=== PATIENT | male | born 1940 | race Caucasian/White ===

== ENCOUNTER → 2016-08-20 | Outpatient (CLI) | payer MEDICARE ==
[~2016-08-20] MED LIST: /AMLO25TA PO; /OXAZ10CA PO; /TAMS4CA PO; ADV100INH INH; ADVA115A INH; ADVA115INH INH; ADVA230A INH; ALB2.5NEB INH; ALBU17IN INH; ALBU20IN INH; ALBUTEROL INH; AMLO10TA2 PO; ASPI1TAB PO; ASPI81TA7 PO; CLEO150C PO; CLEO300C2 PO; CLIN300C PO; COLA100C PO; DEMA20TA6 PO; DOXY100C PO; ELIQ5TAB PO; EUCECRE3 TOP; FLOM5CAP PO; FOLI1TAB2 PO; FURO20TA2 PO; FURO40TA2 PO; HYDR-4274 PO; HYDR25T PO; LACT10SO29 PO; LASI40TA PO; LEVO500T PO; METO25TA74 PO; MILKSUS PO; MUCI600T34 PO; NICO14PA TOP; NICO21DI26 TOP; NICO7PA TOP; OMEP20CA3 PO; PRED10PA PO; PRED10PA2 PO; PRED10TA PO; PRED10TA2 PO; PRED1TAB32 PO; PRED20TA PO; PREPOIN PR; SIMV20TA2 PO; SPIR1CAP INH; TAMS0.4C2 PO; THIA100T PO; TRAZ50TA4 PO; TRIA1OI80 TOP; TYLE325T5 PO; Thiamine Hcl PO; VENTAER INH; VITMTA PO; XANA0.5T PO; ZEST20TA8 PO
[2016-08-20 12:05] LABS: BASO % 0.4 % (0.0-1.0); EOS # 0.2 K/mm3 (0.0-0.50); EOS % 2.6 % (0.0-3.0); LARGE UNSTAINED CELL # 0.1 K/mm3 (0.0-0.4); LYMPH # 0.7 K/mm3 (1.5-4.5); LYMPH % 8.4 % (24.0-44.0); MEAN CORPUSCULAR HEMOGLOBIN 30.2 pg (27.0-33.0); MEAN CORPUSCULAR HGB CONC 32.4 g/dl (32.0-36.5); MEAN CORPUSCULAR VOLUME 93.4 fl (80.0-96.0); MONO # 0.3 K/mm3 (0.0-0.8); MONO % 3.4 % (0.0-5.0); NEUTROPHILS # 6.3 K/mm3 (1.8-7.7); NEUTROPHILS % 84.3 % (36.0-66.0); PLATELET COUNT, AUTOMATED 187 k/mm3 (150-450); RED CELL DISTRIBUTION WIDTH 14.2 % (11.5-14.5); WHITE BLOOD COUNT 7.5 K/mm3 (4.0-10.0)
[2016-08-20 12:35] LABS: ALBUMIN 3.2 GM/DL (3.2-5.2); ALKALINE PHOSPHATASE 96 U/L (45-117); ALT/SGPT 19 U/L (12-78); ANION GAP 9 MEQ/L (8-16); AST/SGOT 19 U/L (15-37); BILIRUBIN,TOTAL 0.4 MG/DL (0.2-1.0); BLOOD UREA NITROGEN 17 MG/DL (7-18); CALCIUM LEVEL 8.4 MG/DL (8.8-10.2); CARBON DIOXIDE LEVEL 31 MEQ/L (21-32); CHLORIDE LEVEL 102 MEQ/L (98-107); CREATININE FOR GFR 1.22 MG/DL (0.70-1.30); FREE T4 0.97 NG/DL (0.76-1.46); GLOMERULAR FILTRATION RATE > 60.0 (>42); GLUCOSE, FASTING 130 MG/DL (83-110); PERCENT SATURATION 13.5 % (19.7-37.4); POTASSIUM SERUM 3.9 MEQ/L (3.5-5.1); SODIUM LEVEL 142 MEQ/L (136-145); TOTAL IRON BINDING CAPACITY 288 UG/DL (250-450); TOTAL PROTEIN 7.2 GM/DL (6.4-8.2)
--- NOTE | 2016-08-20 12:35 | REP ---
Left lower extremity Duplex Doppler venous ultrasound: Real time compression and duplex Doppler interrogation of the left lower extremity deep venous system is performed. The left common femoral, superficial femoral and popliteal veins are fully compressible with transducer pressure and demonstrate normal spontaneous and phasic flow, without evidence of deep venous thrombosis. Impression: No evidence of deep venous thrombosis of the left lower extremity femoral popliteal venous system. Signed by Tyler Baca MD 08/20/2016 12:27 P
--- NOTE | 2016-08-20 13:43 | REP ---
TWO VIEW CHEST: Two views of the chest are performed. Comparison 06/06/2016 and 06/04/2016. Large right pleural effusion has increased since prior studies. Interstitial opacities in the left lung base are unchanged. Cardiac silhouette appears enlarged. There is some calcification of the thoracic aorta. The mediastinal silhouette is unchanged although the infrahilar region on the right is obscured. There are degenerative changes of the spine. IMPRESSION: Large right pleural effusion has increased since prior studies. Signed by Tyler Baca MD 08/20/2016 04:59 P
== END ==
LOC: M LAB 11:14
PROVIDERS: ATTEND Physician Assistant
DX: J44.1 Chronic obstructive pulmonary disease with (acute) exacerbation (principal); R60.9 Edema, unspecified; I48.0 Paroxysmal atrial fibrillation

== ENCOUNTER → 2016-09-28 | Outpatient (CLI) | payer MEDICARE ==
[~2016-09-28] MED LIST changes: -COLA100C PO; +COLA100C3 PO
--- NOTE | 2016-09-28 10:39 | REP ---
CHEST, TWO VIEWS: Two views of the chest are performed and compared to a prior study of 08/20/2016. There is a moderate right effusion which has slightly diminished in size which adjacent right base atelectasis/infiltrate. Left lung is unchanged in appearance. Cardiomediastinal silhouette is grossly unchanged. There are degenerative changes of the spine. IMPRESSION: Mild decrease in moderate right effusion. Signed by Tyler Baca MD 09/28/2016 05:36 P
[2016-09-28 14:28] LABS: ANION GAP 6 MEQ/L (8-16); BLOOD UREA NITROGEN 12 MG/DL (7-18); CALCIUM LEVEL 9.3 MG/DL (8.8-10.2); CARBON DIOXIDE LEVEL 34 MEQ/L (21-32); CHLORIDE LEVEL 97 MEQ/L (98-107); CREATININE FOR GFR 1.18 MG/DL (0.70-1.30); FREE T4 1.08 NG/DL (0.76-1.46); GLOMERULAR FILTRATION RATE > 60.0 (>42); GLUCOSE, FASTING 113 MG/DL (83-110); SODIUM LEVEL 137 MEQ/L (136-145)
== END ==
LOC: M SMT 09:39
PROVIDERS: ATTEND Physician Assistant
DX: E03.9 Hypothyroidism, unspecified (principal); R60.9 Edema, unspecified

== ENCOUNTER 2016-10-11 15:19 | Inpatient (IN) | payer MEDICARE ==
[~2016-10-11] VITALS: Ht 188 cm; Wt 111.5 kg
[2016-10-11] MEDS ORDERED: ALBUTEROL SULFATE 2.5 MG/0.5 ML INH NEB SOLN INH ONE (15:45)
[2016-10-11] MEDS ORDERED: IPRATROPIUM 0.5MG/ALBUTEROL 2.5MG INH SOL UD 3ML (DUONEB)(J7620) NEB ONE (15:45)
[2016-10-11] MEDS ORDERED: methylPREDNISolone INJ 125 MG/2 ML VIAL (J2930) IV ONE (15:45)
[2016-10-11 16:00] LABS: ABG HCO3 28.4 MEQ/L (22.0-26.0); ABG PARTIAL PRESSURE CO2 41.9 mmHg (35.0-45.0); ABG PARTIAL PRESSURE O2 120.8 mmHg (75.0-100.0); ABG STANDARD HCO3 28.1 MEQ/L (22.0-26.0); ABG TOTAL CO2 29.7 MEQ/L (23.0-31.0); ABG pH (ARTERIAL) 7.449 UNITS (7.350-7.450)
[2016-10-11 16:01] LABS: BASO % 0.3 % (0.0-1.0); EOS # 0.1 K/mm3 (0.0-0.50); EOS % 1.1 % (0.0-3.0); LARGE UNSTAINED CELL # 0.1 K/mm3 (0.0-0.4); LARGE UNSTAINED CELL % 1.9 % (0.0-4.0); LYMPH # 0.9 K/mm3 (1.5-4.5); LYMPH % 16.3 % (24.0-44.0); MEAN CORPUSCULAR HGB CONC 32.7 g/dl (32.0-36.5); MEAN CORPUSCULAR VOLUME 91.6 fl (80.0-96.0); MONO # 0.2 K/mm3 (0.0-0.8); NEUTROPHILS # 3.9 K/mm3 (1.8-7.7); NEUTROPHILS % 77.4 % (36.0-66.0); PLATELET COUNT, AUTOMATED 155 k/mm3 (150-450); RED CELL DISTRIBUTION WIDTH 15.7 % (11.5-14.5); WHITE BLOOD COUNT 5.1 K/mm3 (4.0-10.0)
[2016-10-11 16:08] LABS: INR 1.3
[2016-10-11] MEDS ORDERED: IPRASOL4 INH (16:39)
[2016-10-11] MEDS ORDERED: COLA100C3 PO (16:46)
[2016-10-11] MEDS ORDERED: LEVO50TA45 PO (16:46)
[2016-10-11] MEDS ORDERED: SPIR12.9 INH (16:46)
[2016-10-11] MEDS ORDERED: LACT10SO29 PO (16:46)
[2016-10-11] MEDS ORDERED: ALPR0.5T3 PO (16:46)
[2016-10-11 16:54] LABS: ALBUMIN 3.4 GM/DL (3.2-5.2); ALBUMIN/GLOBULIN RATIO 0.94 (1.00-1.93); ALKALINE PHOSPHATASE 87 U/L (45-117); ALT/SGPT 23 U/L (12-78); ANION GAP 4 MEQ/L (8-16); AST/SGOT 23 U/L (15-37); BILIRUBIN,DIRECT 0.3 MG/DL (0.0-0.2); BILIRUBIN,TOTAL 0.6 MG/DL (0.2-1.0); BLOOD UREA NITROGEN 11 MG/DL (7-18); CALCIUM LEVEL 8.1 MG/DL (8.8-10.2); CARBON DIOXIDE LEVEL 34 MEQ/L (21-32); CHLORIDE LEVEL 97 MEQ/L (98-107); CREATININE FOR GFR 1.06 MG/DL (0.70-1.30); GLOMERULAR FILTRATION RATE > 60.0 (>42); GLUCOSE, FASTING 105 MG/DL (83-110); SODIUM LEVEL 135 MEQ/L (136-145)
[2016-10-11 16:59] LABS: THYROXINE (T4) 5.9 UG/DL (4.5-12.0)
--- NOTE | 2016-10-11 17:08 | REP ---
Portable chest x-ray: Single view: History: Dyspnea and cough. Comparison chest x-ray: 09/28/2016. Findings: EKG monitoring electrodes overlie the chest. There is blunting of the right lateral pleural angle consistent with moderate right pleural effusion perhaps slightly increased compared with the 09/28/2016 study. Cardiomegaly is again observed. Pulmonary vasculature is cephalized. No left pleural effusion or pulmonary edema is seen. Impression: Moderate right pleural effusion. Cardiomegaly and pulmonary vascular cephalization pattern consistent with CHF. Signed by Osmar Nunez MD 10/11/2016 07:54 P
[2016-10-11] MEDS ORDERED: ISOVUE-370 76% 100ML VIAL (Q9967) As Ordered ONE (17:12)
[2016-10-11] MEDS ORDERED: FUROSEMIDE 100 MG/10 ML VIAL (J1940) IV ONE (17:15)
[2016-10-11] MEDS ORDERED: AZITHROMYCIN INJ 500 MG, VIAL MATE ADAPTER 1 EACH in D5W 250 ML IV ONE (17:15)
[2016-10-11] MEDS ORDERED: cefTRIAXone SOD 1 GM in D5W MINI-BAG PLUS 50 ML IV ONE (17:15)
[2016-10-11] MEDS ORDERED: LORazepam 2 MG/ML VIAL (J2060) IV STA (18:01)
--- NOTE | 2016-10-11 18:31 | REP ---
CT pulmonary angiogram: With IV contrast: History: Shortness of breath, positive DVT. Comparison studies: 06/06/2016. Contrast dose: 75 mL of Isovue [address] technique: Helical scanning is acquired and overlapping 1.5 mm and contiguous 3 mm axial images are reformatted. In addition, a 3-D work station is deployed to generate thick slab maximum intensity projection images in sagittal and coronal imaging projections. CT pulmonary angiographic findings: There is good opacification of the pulmonary arterial tree. There is no CT evidence of pulmonary embolism. Coronary artery vascular calcification are noted. The thoracic aorta is otherwise unremarkable. No dissection or aneurysm is seen. There is a small to moderate right pleural effusion. No pericardial effusion is seen. No left pleural effusion is noted. Maximal intensity projection images show no vessel cutoff or filling defect to suspect an embolus. There is a 1.6 cm pleural-based nodule in the anterior aspect of the right upper lobe again noted unchanged comparison to prior studies. There is some atelectatic changes in the right base. On today's examination there is a small new opacity in the left lower lobe measuring 9 mm in diameter. This has nodular shape. It was not evident on the 06/06/2016 prior study. No hilar or mediastinal mass is seen. Stable mediastinal lymph nodes are seen. The right pleural effusion is larger than on the 06/06/2016 prior study. Impression: 1. No CT evidence of pulmonary embolus. 2. Moderate size right pleural effusion increased in size from 06/06/2016 prior exam. 3. Stable right upper lobe 16 mm nodule. 4. New nodule left lower lobe 9 mm in diameter. Signed by Osmar Nunez MD 10/11/2016 07:56 P
[2016-10-11] MEDS ORDERED: LORazepam 2 MG/ML VIAL (J2060) IV PRN (19:00)
[2016-10-11] MEDS ORDERED: OXAZEPAM 10 MG CAP PO PRN (19:00)
--- NOTE | 2016-10-11 19:11 | REP ---
Bilateral lower extremity duplex venous ultrasound: History: Swelling. Comparison study: 08/20/2016. Findings: The deep veins are anechoic and fully compressible from the groin to the popliteal fossa in the left lower extremity on two-dimensional scanning. Left lower extremity color Doppler and pulsed Doppler flow interrogation is unremarkable. There is no evidence of DVT in the left lower extremity. On the right however, there is echogenic material along the lateral wall of the distal femoral vein over a short segment of the distal femoral vein consistent with DVT, possibly chronic. The deep veins are otherwise anechoic and compressible and color Doppler interrogation is unremarkable on the right. Impression: Positive study on the right with a short segment of mural echogenic material along the lateral wall of the distal femoral vein consistent with DVT, possibly chronic. Otherwise negative right lower extremity duplex venous ultrasound. Negative left lower extremity duplex venous ultrasound. Signed by Osmar Nunez MD 10/11/2016 07:56 P
--- NOTE | 2016-10-11 19:22 | HPEPDOC ---
General Date of Admission October 11 2016 Chief Complaint The patient is a 75-year-old male admitted with a reason for visit of SOB. Source: Patient Exam Limitations: No limitations Timing/Duration: Day(s) (2) Severity: Moderate Associated Symptoms: Cough, Chills History of Present Illness Mr. Damico is a 75-year-old male with past medical history of COPD, congestive heart failure, hypertension, GERD, atrial fibrillation, BPH, renal cysts, dyslipidemia who presents to the emergency department today with a complaint that for the past 2 days he has developed an irritating cough productive of grayish white phlegm with associated shortness of breath. The patient states that he was in his usual state of health and that 2 days ago he started to develop this cough, he also states that for the past couple months he has noticed both of his legs becoming edematous. He denies associated headache, change in vision, nausea vomiting, fever but does admit to chills for the past 2 days, denies muscle aches. The patient states that there've been no changes in his bowel or urinary habits, he does self cath every night for urinary retention and gets about 2 quarts of urine out, he has been doing this for 2 months. He describes no change in his medications, admits to taking his medications regularly, denies any change in his diet recently or consuming increased amounts of sodium. He does admit to a pretty heavy alcohol history, he currently drinks around 15 beers per day. He does state that he sometimes gets cold at night and that the heat in his room does not work very well. Patient also states that for the past 2 years he has had generalized, red, itchy rash and that he has been to dermatology but states that no one can seem to figure out what it is. Home Medications Scheduled Amlodipine Besylate (Amlodipine Besylate) 10 Mg Tab 10 MG PO DAILY (Reported) Apixaban Base (Eliquis) 5 Mg Tab 5 MG PO BID (Reported) Aspirin (Aspirin 81) 81 Mg Tab 81 MG PO DAILY (Reported) Folic Acid (Folic Acid) 1 Mg Tab 1 MG PO DAILY (Reported) Guaifenesin (Mucinex) 600 Mg Tab 600 MG PO TID (Reported) Hydroxyzine HCl (Hydroxyzine HCl) 50 Mg Tab 50 MG PO QAM (Reported) Hydroxyzine HCl (Hydroxyzine HCl) 25 Mg Tab 25 MG PO BID (Reported) AFTERNOON & BEDTIME Levothyroxine Sodium (Levoxyl) 50 Mcg Tab 50 MCG PO DAILY (Reported) Metoprolol Succinate (Metoprolol Succinate ER) 25 Mg Tab 25 MG PO QHS (Reported ) Multivitamins *[facility] STOCK[facility]* (Thera M Plus *[facility] STOCK[facility]*) 1 Tab Tab 1 TAB PO DAILY (Reported) Omeprazole (Omeprazole) 20 Mg Cap 20 MG PO DAILY (Reported) Prednisone (Prednisone) 10 Mg Tab 10 MG PO DAILY (Reported) Salmeterol/Fluticasone (Advair Hfa 115-21 Mcg/Act) 1 Aer Aer 2 PUFF INH BID ( Reported) Simvastatin (Simvastatin) 20 Mg Tab 20 MG PO QHS (Reported) Tamsulosin Hydrochloride (Flomax) 0.4 Mg Cap 0.8 MG PO DAILY (Reported) Thiamine HCl (Thiamine HCl) 100 Mg Tab 100 MG PO DAILY (Reported) Tiotropium [place] Monohydrate (Spiriva Respimat) 2.5 Mcg/Act Spr 1 INHALATION INH DAILY (Reported) Trazodone HCl (Trazodone HCl) 50 Mg Tab 50 MG PO QHS (Reported) Scheduled PRN (Preparation H 0.25-3-14-71.9 %) 1 Oin Oin 1 DOSE AL PRN HEMORRHOIDS (Reported) Albuterol Sulfate (Ventolin Hfa) 200 Puff/8 Gm Aers 2 PUFF INH Q4H PRN PRN SHORTNESS OF BREATH (Reported) Albuterol/Ipratropium (Ipratropium [place]/Albut 0.5-2.5 (3) mg/3Ml) 1 Leonard Leonard 1 LEONARD INH Q4H PRN PRN SHORTNESS OF BREATH (Reported) Alprazolam (Alprazolam) 0.5 Mg Tab 0.5 MG PO QHS PRN PRN SLEEP (Reported) Docusate Sodium (Colace) 100 Mg Cap 100 MG PO BID PRN PRN CONSTIPATION (Reported ) Lactulose (Lactulose) 10 Gm/15 Ml Leonard 15 ML PO BID PRN PRN CONSTIPATION ( Reported) Allergies Coded Allergies: Lisinopril (Unverified Allergy, Severe, ANGIOEDEMA, 02/02/13) MAKENNA Inhibitors (Unverified Allergy, Unknown, 05/30/16) Ciprofloxacin (Unverified Allergy, Unknown, HIVES, SWELLING, 05/30/16) Fluconazole (Unverified Allergy, Unknown, 12/07/12) Per family Ibuprofen (Unverified Allergy, Unknown, Rash, 05/30/16) Per family Latex (Unverified Allergy, Unknown, 12/07/12) Per family Penicillins (Unverified Allergy, Unknown, rash, hives, 05/30/16) Per family Sulfa Drugs (Unverified Allergy, Unknown, rash, swelling, 05/30/16) Per family Past Medical History Medical History COPD CHF Hypertension GERD Atrial fibrillation Renal cysts hx BPH Dyslipidemia Surgical History Bladder suspension and ureteral procedure Family History Significant Family History: Cancer, Diabetes Father had coronary artery disease, grandmother had diabetes, mother had diabetes and sister had breast cancer Social History * Smoker: former Smoker (used to smoke 1.5 packs per day since he was a teenager, quit over year ago.) Alcohol: heavy (15 beers per day since he was a teenager) Drugs: denies Lives at home with his daughter Review of Symptoms Constitutional: Reports: Chills, Fatigue, Malaise, Denies: Fever, Night Sweats, Weakness, Weight Loss Eyes: Denies: Conjunctivae inflammation, Eyelid inflammation, Pain, Redness, Vision change ENT: Denies: Head Aches, Sinus Congestion Skin: Reports: Rash Pulmonary: Reports: Cough, Dyspnea Cardiovascular: Reports: Edema, Denies: Chest Pain, Palpitations Gastrointestinal: Denies: Nausea, Vomiting Genitourinary: Reports: Retention Neurological: Denies: Numbness, Weakness Psych: Reports: Mood Normal Physical Examination General Exam: Positive: Alert, Cooperative, Mild Distress Eye Exam: Positive: Conjunctiva & lids normal, EOMI, Negative: Ptosis, Sclera icteric ENT Exam: Positive: Atraumatic, Mucous membr. moist/pink, Nares Patent, Pharynx Normal, Tongue Midline Neck Exam: Positive: Supple, Negative: JVD Chest Exam: Positive: Diminished, Rhonchi Heart Exam: Positive: Normal S1, Rate Normal, Negative: Murmurs, Rubs Telemetry: Positive: Atrial fibrillation Abdomen Exam: Positive: Normal bowel sounds, Soft, Negative: BS Hyperactive, BS Hypoactive, Hepatospenomegaly, Tenderness Extremity Exam: Positive: Edema (b/l +1 LE), Swelling, Negative: Clubbing, Cyanosis Skin Exam: Positive: Nl turgor and temperature, Rash (generalized, purpuric , patchy, dry skin, erythematous ) Vital Signs Vital Signs Date Time Temp Pulse Resp B/P Pulse Ox O2 Delivery O2 Flow Rate FiO2 10/11/16 16:21 5 95 10/11/16 16:19 103 88 10/11/16 16:15 162/72 10/11/16 16:04 22 10/11/16 15:19 99.7 Nasal Cannula Laboratory Data Labs 24H Laboratory Tests 2 10/11/16 15:50: B-Type Natriuretic Peptide 245H, White Blood Count 5.1, Red Blood Count 4.04L, Hemoglobin 12.1L, Hematocrit 37.0L, Mean Corpuscular Volume 91.6, Mean Corpuscular Hemoglobin 30.0, Mean Corpuscular Hemoglobin Concent 32.7, Red Cell Distribution Width 15.7H, Platelet Count 155, Neutrophils (%) (Auto) 77.4H, Lymphocytes (%) (Auto) 16.3L, Monocytes (%) (Auto) 3.0, Eosinophils (%) (Auto) 1.1, Basophils (%) (Auto) 0.3, Neutrophils # (Auto) 3.9, Lymphocytes # (Auto) 0.9L, Monocytes # (Auto) 0.2, Eosinophils # (Auto) 0.1, Basophils # (Auto) 0.0, Lactic Acid Level 1.9, Large Unclassified Cells # 0.1, Large Unclassified Cells % 1.9, Prothromb Time International Ratio 1.30, Prothrombin Time 16.3H 10/11/16 15:54: Arterial Blood pH 7.449, Arterial Blood Partial Pressure CO2 41.9, Arterial Blood Partial Pressure O2 120.8H, Arterial Blood Total CO2 29.7, Arterial Blood HCO3 28.4H, Arterial Blood Base Excess 4.0H, Arterial Blood Oxygen Saturation 98.7, Blood Gas Bicarbonate Standard 28.1H 10/11/16 16:15: Aspartate Amino Transf (AST/SGOT) 23, Alanine Aminotransferase (ALT/SGPT) 23, Alkaline Phosphatase 87, Total Bilirubin 0.6, Direct Bilirubin 0.3H, Albumin 3.4 , Albumin/Globulin Ratio 0.94L, Anion Gap 4L, Calcium Level 8.1L, Creatine Kinase MB 2.4, Creatine Kinase MB Relative Index 3.75, Glomerular Filtration Rate > 60.0, Thyroid Stimulating Hormone (TSH) 1.010, Thyroxine (T4) 5.9, Total Creatine Kinase 64, Total Protein 7.0, Troponin I < 0.02 CBC/BMP Laboratory Tests 10/11/16 15:50 Red Blood Count 4.04 L, Mean Corpuscular Volume 91.6, Mean Corpuscular Hemoglobin 30.0, Mean Corpuscular Hemoglobin Concent 32.7, Red Cell Distribution Width 15.7 H, Neutrophils (%) (Auto) 77.4 H, Lymphocytes (%) (Auto ) 16.3 L, Monocytes (%) (Auto) 3.0, Eosinophils (%) (Auto) 1.1, Basophils (%) ( Auto) 0.3, Neutrophils # (Auto) 3.9, Lymphocytes # (Auto) 0.9 L, Monocytes # ( Auto) 0.2, Eosinophils # (Auto) 0.1, Basophils # (Auto) 0.0 10/11/16 16:15 Microbiology Microbiology 10/11/16 Blood Culture, Received Pending 10/11/16 Blood Culture, Received Pending 10/11/16 Influenza Virus Type A Antigen - Final, Complete 10/11/16 Influenza Virus Type B Antigen - Final, Complete Problems (1) CHF exacerbation Status: Acute Response to Treatment: Stable Problem Text: BNP of 245 +1 pitting edema bilaterally and physical exam No JVD appreciated 1700 mL fluid ejection Lasix therapy 40 every 12 Strict I&O's Daily weights Neck -2 L goal on diuretic therapy Admit to telemetry Low-sodium diet Trend cardiac enzymes Continue to monitor (2) Dyspnea Status: Acute Response to Treatment: Stable Problem Text: Likely secondary to CHF aspiration and pleural effusion likely secondary to CHF will actively diurese patient Oxygen therapy (3) Pleural effusion Status: Acute Response to Treatment: Stable Problem Text: Likely transudative secondary to heart failure Will diurese patient if he fails to improve will consider consultation thoracic surgery for tap This is likely chronic as it has been evident on prior chest x-rays Continue to monitor (4) Atrial fibrillation Status: Chronic Response to Treatment: Stable Problem Text: Patient is being admitted to telemetry floor Continue with Eliquis home medication Continue with metoprolol home medicine Patient is rate controlled and anticoagulated Continue to monitor (5) 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), with status asthmaticus Status: Chronic Response to Treatment: Stable Problem Text: Patient is usually on 3 L of home oxygen, however he required 5 L in the emergency department to help with the shortness of breath, he did complain of history of cough and sputum production on this admission DuoNeb therapy scheduled Oxygen therapy titrate 88-92% Solu-Medrol 60mg every 6 hours Continue to monitor (6) Hypertension Status: Chronic Response to Treatment: Stable Problem Text: Continue with metoprolol & Norvasc w/ holding parameters Hold for systolic less than 100 Continue to monitor (7) Alcohol abuse Status: Chronic Response to Treatment: Stable Problem Text: Patient has extensive, current drinking history of 15 beers a day serax scheduled Ativan Thiamine Folate B12 Multivitamin Continue to monitor (8) Anxiety Status: Chronic Response to Treatment: Stable Problem Text: Continue with alprazolam medical therapy (9) Skin rash Status: Chronic Response to Treatment: Stable Problem Text: Stable Continue to monitor (10) Hypothyroid Status: Chronic Response to Treatment: Stable Problem Text: C/W levothyroxine therapy (11) Urinary retention Status: Chronic Response to Treatment: Stable Problem Text: Nava cath since patient will be actively diuresed (12) DVT (deep venous thrombosis) Status: Acute Response to Treatment: Stable Problem Text: Continue with Eliquis medical therapy Right nonocclusive DVT Follow up with final vascular report continue to monitor (13) DVT prophylaxis Status: Acute Response to Treatment: Stable Problem Text: c/w eliquis scd teds Plan / VTE VTE Prophylaxis Ordered?: Yes GME ATTESTATION GME ATTESTATION My preceptor for this patient encounter was physically present in the building during the encounter and was fully available. As needed, all aspects of the patient interview, examination, medical decision making process, and medical care plan development were reviewed and approved by the preceptor. Preceptor is aware and concurs with the plan as stated in the body of this note and will attest to such by his/her cosignature. CAROLE CALDWELL DO Oct 11, 2016 19:21
[2016-10-11] MEDS ORDERED: PREPARATION H OINTMENT (HEMORRHOID) PR PRN (19:45)
[2016-10-11] MEDS ORDERED: LACTULOSE 20 GM/30 ML SYRUP UD PO PRN (19:45)
[2016-10-11 20:55] VITALS: BP 143/77
[2016-10-11] MEDS: ADVAIR HFA 115/21 INHALER INH SCH (21:00)
[2016-10-11] MEDS: OXAZEPAM 15 MG CAP PO SCH (21:10)
[2016-10-11] MEDS: traZODone 50 MG TAB PO SCH (21:35)
[2016-10-11] MEDS: methylPREDNISolone INJ 125 MG/2 ML VIAL (J2930) IV SCH (21:35)
[2016-10-11] MEDS: SIMVASTATIN 20 MG TAB PO SCH (21:35)
[2016-10-11] MEDS: METOPROLOL SUCC *XL* 25MG TAB (TopROL *XL*) PO SCH (21:35)
[2016-10-11] MEDS: ALPRAZolam 0.25 MG TAB PO SCH (21:35)
[2016-10-11] MEDS: APIXABAN 5 MG TAB (ELIQUIS) PO SCH (21:35)
[2016-10-11] MEDS: guaiFENesin ER 600 MG TAB PO SCH (21:35)
[2016-10-11] MEDS: hydrOXYzine 25 MG TAB PO SCH (21:35)
[2016-10-11] MEDS ORDERED: SLF 3 ML SYR IV PRN (22:15)
[2016-10-11] MEDS ORDERED: REFR0.5D8 OU ×2 (22:24→22:26)
[2016-10-11] MEDS ORDERED: POLYVINYL ALCOHOL OPHTH SOLN 15 ML(LIQUITEARS) OU PRN (23:15)
[2016-10-11 23:59] VITALS: BP 135/62
[2016-10-12] MEDS: NYSTATIN 100,000 UNITS/GM TOPICAL PWD 15 GM TOP SCH ×3 (02:45→21:22)
[2016-10-12 04:45] VITALS: BP 148/68
[2016-10-12] MEDS: methylPREDNISolone INJ 125 MG/2 ML VIAL (J2930) IV SCH ×4 (04:45→21:21)
[2016-10-12 05:41] LABS: BASO % 0.2 % (0.0-1.0); EOS % 0.2 % (0.0-3.0); LYMPH # 0.5 K/mm3 (1.5-4.5); LYMPH % 19.8 % (24.0-44.0); MEAN CORPUSCULAR HEMOGLOBIN 29.9 pg (27.0-33.0); MEAN CORPUSCULAR HGB CONC 32.4 g/dl (32.0-36.5); MONO # 0.1 K/mm3 (0.0-0.8); MONO % 2.7 % (0.0-5.0); NEUTROPHILS # 1.9 K/mm3 (1.8-7.7); NEUTROPHILS % 76.1 % (36.0-66.0); PLATELET COUNT, AUTOMATED 145 k/mm3 (150-450); RED CELL DISTRIBUTION WIDTH 15.7 % (11.5-14.5); WHITE BLOOD COUNT 2.4 K/mm3 (4.0-10.0)
[2016-10-12 05:53] LABS: ANION GAP 6 MEQ/L (8-16); BLOOD UREA NITROGEN 13 MG/DL (7-18); CALCIUM LEVEL 8.4 MG/DL (8.8-10.2); CARBON DIOXIDE LEVEL 35 MEQ/L (21-32); CHLORIDE LEVEL 99 MEQ/L (98-107); CREATININE FOR GFR 1.03 MG/DL (0.70-1.30); GLOMERULAR FILTRATION RATE > 60.0 (>42); GLUCOSE, FASTING 141 MG/DL (83-110); SODIUM LEVEL 140 MEQ/L (136-145)
[2016-10-12] MEDS: OXAZEPAM 15 MG CAP PO SCH ×5 (05:59→23:31)
[2016-10-12] MEDS: LEVOTHYROXINE 0.05 MG TAB (50 MCG) PO SCH (05:59)
[2016-10-12] MEDS: SLF 3 ML SYR IV SCH ×3 (05:59→21:21)
[2016-10-12] MEDS: FUROSEMIDE 40 MG/4 ML VIAL (J1940) IV SCH ×2 (06:03→18:07)
[2016-10-12 07:10] VITALS: BP 117/62
[2016-10-12] MEDS: guaiFENesin ER 600 MG TAB PO SCH ×3 (08:06→21:20)
[2016-10-12] MEDS: APIXABAN 5 MG TAB (ELIQUIS) PO SCH ×2 (08:07→21:20)
[2016-10-12] MEDS: THIAMINE 100 MG TAB PO SCH (08:07)
[2016-10-12] MEDS: MULTIVITAMINS/MINERALS THERAP 1 TAB PO SCH (08:07)
[2016-10-12] MEDS: OMEPRAZOLE 20 MG CAP PO SCH (08:07)
[2016-10-12] MEDS: TAMSULOSIN 0.4 MG CAP PO SCH (08:07)
[2016-10-12] MEDS: amLODIPine 10 MG TAB PO SCH (08:07)
[2016-10-12] MEDS: FOLIC ACID 1 MG TAB PO SCH (08:07)
[2016-10-12] MEDS: ASPIRIN 81 MG ENTERIC TAB PO SCH (08:07)
[2016-10-12] MEDS: hydrOXYzine 50 MG TAB PO SCH (11:03)
[2016-10-12] MEDS: ADVAIR HFA 115/21 INHALER INH SCH ×2 (11:20→20:09)
[2016-10-12 12:00] VITALS: BP 141/65
--- NOTE | 2016-10-12 13:19 | IPNPDOC ---
Text Note Date of Service The patient was seen on 10/12/16. NOTE Subjective: Pt states dyspnea has improved. No CP/palpitations. Objective: Vitals: (see below) General: No acute distress, laying comfortably in bed. HEENT: Moist mucous membranes. Neck: No JVD or lymphadenopathy Cardiac: RRR, No murmurs Pulm: Diminished breath sounds and coarse crackles b/l bases. No wheezing, rhonchi Abd: NT/ND + BS Ext: 1+ pitting edema BLE. No cyanosis. Labs (see below) Images: CTA Chest 10/11/16 Impression: 1. No CT evidence of pulmonary embolus. 2. Moderate size right pleural effusion increased in size from 06/06/2016 prior exam. 3. Stable right upper lobe 16 mm nodule. 4. New nodule left lower lobe 9 mm in diameter. BLE U/S 10/11/16 Impression: Positive study on the right with a short segment of mural echogenic material along the lateral wall of the distal femoral vein consistent with DVT, possibly chronic. Otherwise negative right lower extremity duplex venous ultrasound. Negative left lower extremity duplex venous ultrasound. Assessment/Plan 1. Acute diastolic heart failure- echocardiogram in May with a preserved EF. The patient is currently being diuresed with Lasix. Cardiac enzymes negative. Repeat echocardiogram pending 2. Acute COPD exacerbation - on 3L NC at home, requiring 5L on presentation. on steroids, nebs. Respiratory panel pending. 3. Likely chronic DVT - On eliquis, Metoprolol 4. H/o AF - on eliquis 5. Alcohol abuse- serax, B12, thiamine, ativan, folic acid, MVI 6. Hypothyroidism - on synthroid 7. Chronic urinary retention - start flomax. has amador at this time for diuresis. 8. Pleural effusion - will diurese pt. If persistent, will arrange for IR to drain. 9. Pulmonary nodule - will need close outpt f/u and repeat CT Chest. DVT prophy: Eliquis VS,Fishbone, I+O VS, Fishbone, I+O Laboratory Tests 10/11/16 15:50 Red Blood Count 4.04 L, Mean Corpuscular Volume 91.6, Mean Corpuscular Hemoglobin 30.0, Mean Corpuscular Hemoglobin Concent 32.7, Red Cell Distribution Width 15.7 H, Neutrophils (%) (Auto) 77.4 H, Lymphocytes (%) (Auto ) 16.3 L, Monocytes (%) (Auto) 3.0, Eosinophils (%) (Auto) 1.1, Basophils (%) ( Auto) 0.3, Neutrophils # (Auto) 3.9, Lymphocytes # (Auto) 0.9 L, Monocytes # ( Auto) 0.2, Eosinophils # (Auto) 0.1, Basophils # (Auto) 0.0 10/11/16 16:15 10/12/16 05:20 Red Blood Count 3.87 L, Mean Corpuscular Volume 92.0, Mean Corpuscular Hemoglobin 29.9, Mean Corpuscular Hemoglobin Concent 32.4, Red Cell Distribution Width 15.7 H, Neutrophils (%) (Auto) 76.1 H, Lymphocytes (%) (Auto ) 19.8 L, Monocytes (%) (Auto) 2.7, Eosinophils (%) (Auto) 0.2, Basophils (%) ( Auto) 0.2, Neutrophils # (Auto) 1.9, Lymphocytes # (Auto) 0.5 L, Monocytes # ( Auto) 0.1, Eosinophils # (Auto) 0.0, Basophils # (Auto) 0.0, Calcium Level 8.4 L Vital Signs Date Time Temp Pulse Resp B/P Pulse Ox O2 Delivery O2 Flow Rate FiO2 10/12/16 08:35 Nasal Cannula 3.0 10/12/16 08:07 74 117/62 10/12/16 07:10 97.9 22 92 10/11/16 16:21 95 I&O- Last 24 Hours up to 6 AM 10/12/16 06:00 Intake Total 0 ml Output Total 3250 ml Balance -3250 ml RAEANN LUTHER MD Oct 12, 2016 13:19
[2016-10-12 16:00] VITALS: BP 141/64
[2016-10-12] MEDS: hydrOXYzine 25 MG TAB PO SCH ×2 (16:46→21:20)
[2016-10-12] MEDS: IPRATROPIUM 0.5MG/ALBUTEROL 2.5MG INH SOL UD 3ML (DUONEB)(J7620) NEB PRN (18:54)
[2016-10-12 19:36] VITALS: BP 130/71
--- NOTE | 2016-10-12 20:15 | ECGEPIP ---
Stationary ECG Study [facility] - ED Test Date: 2016-10-11 Pat Name: JESSICA CRUZ Department: Room: - Gender: M Psychiatric Assistant: : [id number] Requested By: Karsten Swift Order Number: [id number] Reading MD: Muul Moya Measurements Intervals [place] Rate: 92 P: DE: 0 QRS: 8 QRSD: 76 T: 16 QT: 341 QTc: 422 Interpretive Statements ATRIAL FIBRILLATION ABNORMAL RHYTHM ECG NSTTW ABNORMALITY BASELINE AERTIFACT LIMITS INTERPRETATION Electronically Signed On 10-12-2016 20:15:05 EDT by Mulu Moya
[2016-10-12] MEDS: traZODone 50 MG TAB PO SCH (21:20)
[2016-10-12] MEDS: SIMVASTATIN 20 MG TAB PO SCH (21:20)
[2016-10-12] MEDS: ALPRAZolam 0.25 MG TAB PO SCH (21:20)
[2016-10-12] MEDS: METOPROLOL SUCC *XL* 25MG TAB (TopROL *XL*) PO SCH (21:21)
[2016-10-12 23:30] VITALS: BP 128/75
[2016-10-13 05:15] VITALS: BP 148/74
[2016-10-13] MEDS: OXAZEPAM 15 MG CAP PO SCH ×4 (05:20→23:44)
[2016-10-13] MEDS: methylPREDNISolone INJ 125 MG/2 ML VIAL (J2930) IV SCH ×4 (05:20→21:45)
[2016-10-13] MEDS: FUROSEMIDE 40 MG/4 ML VIAL (J1940) IV SCH ×2 (05:20→18:30)
[2016-10-13] MEDS: LEVOTHYROXINE 0.05 MG TAB (50 MCG) PO SCH (05:21)
[2016-10-13] MEDS: SLF 3 ML SYR IV SCH ×3 (05:21→21:46)
[2016-10-13 05:22] LABS: BASO % 0.1 % (0.0-1.0); EOS % 0.1 % (0.0-3.0); LARGE UNSTAINED CELL # 0.1 K/mm3 (0.0-0.4); LARGE UNSTAINED CELL % 0.8 % (0.0-4.0); LYMPH # 0.4 K/mm3 (1.5-4.5); LYMPH % 6.9 % (24.0-44.0); MEAN CORPUSCULAR HEMOGLOBIN 29.9 pg (27.0-33.0); MEAN CORPUSCULAR HGB CONC 31.9 g/dl (32.0-36.5); MEAN CORPUSCULAR VOLUME 93.8 fl (80.0-96.0); MONO # 0.1 K/mm3 (0.0-0.8); MONO % 2.3 % (0.0-5.0); NEUTROPHILS # 5.1 K/mm3 (1.8-7.7); NEUTROPHILS % 89.7 % (36.0-66.0); PLATELET COUNT, AUTOMATED 129 k/mm3 (150-450); RED CELL DISTRIBUTION WIDTH 15.8 % (11.5-14.5); WHITE BLOOD COUNT 5.7 K/mm3 (4.0-10.0)
[2016-10-13 05:36] LABS: ANION GAP 3 MEQ/L (8-16); BLOOD UREA NITROGEN 21 MG/DL (7-18); CALCIUM LEVEL 7.8 MG/DL (8.8-10.2); CARBON DIOXIDE LEVEL 36 MEQ/L (21-32); CHLORIDE LEVEL 103 MEQ/L (98-107); CREATININE FOR GFR 1.13 MG/DL (0.70-1.30); GLOMERULAR FILTRATION RATE > 60.0 (>42); GLUCOSE, FASTING 182 MG/DL (83-110); POTASSIUM SERUM 3.6 MEQ/L (3.5-5.1); SODIUM LEVEL 142 MEQ/L (136-145)
[2016-10-13] MEDS: ADVAIR HFA 115/21 INHALER INH SCH ×2 (07:41→20:14)
[2016-10-13 07:54] VITALS: BP 109/52
--- NOTE | 2016-10-13 09:04 | REP ---
Portable chest, single AP view, patient sitting: Comparison is 10/11/2016. The right pleural effusion is again noted. There appears to be an air-fluid level at the superior margin of the effusion on the study today. Remainder of the right lung is clear. The focal zone of atelectasis inferiorly in the left lung and left lungs otherwise clear. Cardiomegaly is again noted. The pulmonary vascular congestion identified previously has decreased. Signed by Tyler Leone MD 10/13/2016 08:55 A
[2016-10-13] MEDS: MULTIVITAMINS/MINERALS THERAP 1 TAB PO SCH (09:13)
[2016-10-13] MEDS: OMEPRAZOLE 20 MG CAP PO SCH (09:13)
[2016-10-13] MEDS: ASPIRIN 81 MG ENTERIC TAB PO SCH (09:13)
[2016-10-13] MEDS: guaiFENesin ER 600 MG TAB PO SCH ×2 (09:13→21:46)
[2016-10-13] MEDS: amLODIPine 10 MG TAB PO SCH (09:13)
[2016-10-13] MEDS: hydrOXYzine 50 MG TAB PO SCH (09:13)
[2016-10-13] MEDS: APIXABAN 5 MG TAB (ELIQUIS) PO SCH ×2 (09:13→21:46)
[2016-10-13] MEDS: TAMSULOSIN 0.4 MG CAP PO SCH (09:13)
[2016-10-13] MEDS: THIAMINE 100 MG TAB PO SCH (09:13)
[2016-10-13] MEDS: FOLIC ACID 1 MG TAB PO SCH (09:13)
[2016-10-13] MEDS: NYSTATIN 100,000 UNITS/GM TOPICAL PWD 15 GM TOP SCH ×2 (09:14→21:47)
--- NOTE | 2016-10-13 10:49 | IPNPDOC ---
Text Note Date of Service The patient was seen on 10/13/16. NOTE Subjective: Pt states dyspnea continues to improve. Productive cough. No CP/ palpitations. Objective: Vitals: (see below) General: No acute distress, laying comfortably in bed. HEENT: Moist mucous membranes. Neck: No JVD or lymphadenopathy Cardiac: RRR, No murmurs Pulm: Diminished breath sounds and coarse crackles b/l bases. No wheezing, rhonchi Abd: NT/ND + BS Ext: 1+ pitting edema BLE. No cyanosis. Labs (see below) Images: CTA Chest 10/11/16 Impression: 1. No CT evidence of pulmonary embolus. 2. Moderate size right pleural effusion increased in size from 06/06/2016 prior exam. 3. Stable right upper lobe 16 mm nodule. 4. New nodule left lower lobe 9 mm in diameter. BLE U/S 10/11/16 Impression: Positive study on the right with a short segment of mural echogenic material along the lateral wall of the distal femoral vein consistent with DVT, possibly chronic. Otherwise negative right lower extremity duplex venous ultrasound. Negative left lower extremity duplex venous ultrasound. Assessment/Plan 1. Acute diastolic heart failure- echocardiogram in May with a preserved EF. The patient is currently being diuresed with Lasix. Cardiac enzymes negative. Repeat echocardiogram pending 2. Acute COPD exacerbation - on 3L NC at home, requiring 5L on presentation. on steroids, nebs. Respiratory panel negative. Mucinex. Azithromycin 3. Likely chronic DVT - On eliquis, Metoprolol 4. H/o AF - on eliquis 5. Alcohol abuse- serax, B12, thiamine, ativan, folic acid, MVI 6. Hypothyroidism - on synthroid 7. Chronic urinary retention - start flomax. has amador at this time for diuresis. 8. Pleural effusion - will continue to diurese pt. If persistent, will arrange for IR to drain. 9. Pulmonary nodule - will need close outpt f/u and repeat CT Chest. DVT prophy: Eliquis VS,Fishbone, I+O VS, Fishbone, I+O Laboratory Tests 10/13/16 05:03 Calcium Level 7.8 L, Red Blood Count 3.70 L, Mean Corpuscular Volume 93.8, Mean Corpuscular Hemoglobin 29.9, Mean Corpuscular Hemoglobin Concent 31.9 L, Red Cell Distribution Width 15.8 H, Neutrophils (%) (Auto) 89.7 H, Lymphocytes (%) ( Auto) 6.9 L, Monocytes (%) (Auto) 2.3, Eosinophils (%) (Auto) 0.1, Basophils (% ) (Auto) 0.1, Neutrophils # (Auto) 5.1, Lymphocytes # (Auto) 0.4 L, Monocytes # (Auto) 0.1, Eosinophils # (Auto) 0.0, Basophils # (Auto) 0.0 Vital Signs Date Time Temp Pulse Resp B/P Pulse Ox O2 Delivery O2 Flow Rate FiO2 10/13/16 09:13 77 109/52 10/13/16 07:54 97.2 19 96 Nasal Cannula 3.0 10/11/16 16:21 95 I&O- Last 24 Hours up to 6 AM 10/13/16 05:59 Intake Total 780 ml Output Total 1750 ml Balance -970 ml RAEANN LUTHER MD Oct 13, 2016 10:48
[2016-10-13] MEDS ORDERED: AZITHROMYCIN INJ 500 MG, VIAL MATE ADAPTER 1 EACH in D5W 250 ML IV SCH (11:00)
[2016-10-13] MEDS: IPRATROPIUM 0.5MG/ALBUTEROL 2.5MG INH SOL UD 3ML (DUONEB)(J7620) NEB PRN ×2 (11:41→23:17)
[2016-10-13 12:00] VITALS: BP 123/61
[2016-10-13 16:00] VITALS: BP 129/60
[2016-10-13] MEDS: hydrOXYzine 25 MG TAB PO SCH ×2 (16:47→21:46)
[2016-10-13] MEDS: IPRATROPIUM 0.5MG/ALBUTEROL 2.5MG INH SOL UD 3ML (DUONEB)(J7620) NEB SCH (18:31)
[2016-10-13 19:53] VITALS: BP 137/65
[2016-10-13] MEDS: METOPROLOL SUCC *XL* 25MG TAB (TopROL *XL*) PO SCH (21:45)
[2016-10-13] MEDS: traZODone 50 MG TAB PO SCH (21:46)
[2016-10-13] MEDS: ALPRAZolam 0.25 MG TAB PO SCH (21:46)
[2016-10-13] MEDS: SIMVASTATIN 20 MG TAB PO SCH (21:46)
[2016-10-13 23:50] VITALS: BP 134/63
[2016-10-14] MEDS: FUROSEMIDE 40 MG/4 ML VIAL (J1940) IV SCH ×2 (04:40→17:28)
[2016-10-14] MEDS: methylPREDNISolone INJ 125 MG/2 ML VIAL (J2930) IV SCH ×4 (04:40→21:37)
[2016-10-14] MEDS: OXAZEPAM 15 MG CAP PO SCH ×3 (04:41→17:28)
[2016-10-14] MEDS: SLF 3 ML SYR IV SCH ×3 (04:41→21:38)
[2016-10-14] MEDS: LEVOTHYROXINE 0.05 MG TAB (50 MCG) PO SCH (04:41)
[2016-10-14 05:00] VITALS: BP 140/76
[2016-10-14] MEDS: IPRATROPIUM 0.5MG/ALBUTEROL 2.5MG INH SOL UD 3ML (DUONEB)(J7620) NEB SCH ×5 (06:28→23:21)
[2016-10-14 06:41] LABS: BASO % 0.1 % (0.0-1.0); EOS % 0.1 % (0.0-3.0); LARGE UNSTAINED CELL % 0.5 % (0.0-4.0); LYMPH # 0.4 K/mm3 (1.5-4.5); LYMPH % 5.3 % (24.0-44.0); MEAN CORPUSCULAR HEMOGLOBIN 30.4 pg (27.0-33.0); MEAN CORPUSCULAR HGB CONC 31.9 g/dl (32.0-36.5); MEAN CORPUSCULAR VOLUME 95.2 fl (80.0-96.0); MONO # 0.2 K/mm3 (0.0-0.8); MONO % 2.6 % (0.0-5.0); NEUTROPHILS # 5.9 K/mm3 (1.8-7.7); NEUTROPHILS % 91.4 % (36.0-66.0); PLATELET COUNT, AUTOMATED 136 k/mm3 (150-450); RED CELL DISTRIBUTION WIDTH 15.8 % (11.5-14.5); WHITE BLOOD COUNT 6.5 K/mm3 (4.0-10.0)
[2016-10-14 07:02] LABS: ANION GAP 5 MEQ/L (8-16); BLOOD UREA NITROGEN 24 MG/DL (7-18); CALCIUM LEVEL 7.7 MG/DL (8.8-10.2); CARBON DIOXIDE LEVEL 36 MEQ/L (21-32); CHLORIDE LEVEL 103 MEQ/L (98-107); CREATININE FOR GFR 1.06 MG/DL (0.70-1.30); GLOMERULAR FILTRATION RATE > 60.0 (>42); GLUCOSE, FASTING 152 MG/DL (83-110); POTASSIUM SERUM 3.4 MEQ/L (3.5-5.1); SODIUM LEVEL 144 MEQ/L (136-145)
[2016-10-14] MEDS: ADVAIR HFA 115/21 INHALER INH SCH ×2 (07:30→20:59)
[2016-10-14 08:30] VITALS: BP 134/62
[2016-10-14] MEDS ORDERED: ALBUTEROL SULFATE 2.5 MG/0.5 ML INH NEB SOLN INH PRN (08:45)
[2016-10-14] MEDS: THIAMINE 100 MG TAB PO SCH (08:57)
[2016-10-14] MEDS: OMEPRAZOLE 20 MG CAP PO SCH (08:57)
[2016-10-14] MEDS: amLODIPine 10 MG TAB PO SCH (08:58)
[2016-10-14] MEDS: ASPIRIN 81 MG ENTERIC TAB PO SCH (08:58)
[2016-10-14] MEDS: MULTIVITAMINS/MINERALS THERAP 1 TAB PO SCH (08:58)
[2016-10-14] MEDS: FOLIC ACID 1 MG TAB PO SCH (08:58)
[2016-10-14] MEDS: TAMSULOSIN 0.4 MG CAP PO SCH (08:58)
[2016-10-14] MEDS: hydrOXYzine 50 MG TAB PO SCH (08:58)
[2016-10-14] MEDS: MEROPENEM INJ 1 GM in D5W MINI-BAG PLUS 100 ML IV SCH ×2 (08:59→16:26)
[2016-10-14] MEDS: guaiFENesin ER 600 MG TAB PO SCH ×2 (08:59→21:37)
[2016-10-14] MEDS: APIXABAN 5 MG TAB (ELIQUIS) PO SCH (09:00)
[2016-10-14] MEDS: NYSTATIN 100,000 UNITS/GM TOPICAL PWD 15 GM TOP SCH ×2 (09:08→21:38)
[2016-10-14] MEDS: EUCERIN 120GM CREAM TOP PRN (11:35)
--- NOTE | 2016-10-14 13:08 | IPNPDOC ---
Text Note Date of Service The patient was seen on 10/14/16. NOTE Subjective: Pt states dyspnea is improving. Still has a productive cough, and requesting more nebulizers. No CP/palpitations. Objective: Vitals: (see below) General: No acute distress, laying comfortably in bed. HEENT: Moist mucous membranes. Neck: No JVD or lymphadenopathy Cardiac: RRR, No murmurs Pulm: Diminished breath sounds and coarse crackles b/l bases R>L. Minimal exp wheezing. No rhonchi Abd: NT/ND + BS Ext: Trace pitting edema BLE. No cyanosis. Labs (see below) Images: CTA Chest 10/11/16 Impression: 1. No CT evidence of pulmonary embolus. 2. Moderate size right pleural effusion increased in size from 06/06/2016 prior exam. 3. Stable right upper lobe 16 mm nodule. 4. New nodule left lower lobe 9 mm in diameter. BLE U/S 10/11/16 Impression: Positive study on the right with a short segment of mural echogenic material along the lateral wall of the distal femoral vein consistent with DVT, possibly chronic. Otherwise negative right lower extremity duplex venous ultrasound. Negative left lower extremity duplex venous ultrasound. Assessment/Plan 1. Acute diastolic heart failure- echocardiogram in May with a preserved EF. The patient is currently being diuresed with Lasix. Cardiac enzymes negative. Repeat echocardiogram pending 2. Acute COPD exacerbation - on 3L NC at home, requiring 5L on presentation. on steroids, nebs. Respiratory panel negative. Mucinex. Azithromycin 3. Likely chronic DVT - On eliquis 4. H/o AF - on eliquis, metoprolol 5. Alcohol abuse- serax, B12, thiamine, ativan, folic acid, MVI 6. Hypothyroidism - on synthroid 7. Chronic urinary retention - start flomax. has amador at this time for diuresis. 8. Pleural effusion - will continue to diurese pt. Thoracentesis for tomorrow. Eliquis on hold today. 9. Pulmonary nodule - will need close outpt f/u and repeat CT Chest. DVT prophy: Eliquis VS,Fishbone, I+O VS, Fishbone, I+O Laboratory Tests 10/14/16 04:57 Calcium Level 7.7 L, Red Blood Count 3.75 L, Mean Corpuscular Volume 95.2, Mean Corpuscular Hemoglobin 30.4, Mean Corpuscular Hemoglobin Concent 31.9 L, Red Cell Distribution Width 15.8 H, Neutrophils (%) (Auto) 91.4 H, Lymphocytes (%) ( Auto) 5.3 L, Monocytes (%) (Auto) 2.6, Eosinophils (%) (Auto) 0.1, Basophils (% ) (Auto) 0.1, Neutrophils # (Auto) 5.9, Lymphocytes # (Auto) 0.4 L, Monocytes # (Auto) 0.2, Eosinophils # (Auto) 0.0, Basophils # (Auto) 0.0 Vital Signs Date Time Temp Pulse Resp B/P Pulse Ox O2 Delivery O2 Flow Rate FiO2 10/14/16 08:58 90 136/80 10/14/16 08:30 98.3 18 94 Nasal Cannula 4.0 10/11/16 16:21 95 I&O- Last 24 Hours up to 6 AM 10/14/16 05:59 Intake Total 1440 ml Output Total 1550 ml Balance -110 ml RAEANN LUTHER MD Oct 14, 2016 13:08
[2016-10-14 16:00] VITALS: BP 150/68
[2016-10-14] MEDS: hydrOXYzine 25 MG TAB PO SCH ×2 (16:26→21:37)
[2016-10-14 17:15] VITALS: BP 146/65
[2016-10-14 20:46] VITALS: BP 154/68
[2016-10-14] MEDS: traZODone 50 MG TAB PO SCH (21:37)
[2016-10-14] MEDS: SIMVASTATIN 20 MG TAB PO SCH (21:37)
[2016-10-14] MEDS: ALPRAZolam 0.25 MG TAB PO SCH (21:37)
[2016-10-14] MEDS: METOPROLOL SUCC *XL* 25MG TAB (TopROL *XL*) PO SCH (21:38)
[2016-10-15] VITALS (17 sets, daily range): BP systolic 132–160; BP diastolic 58–74
[2016-10-15] MEDS: MEROPENEM INJ 1 GM in D5W MINI-BAG PLUS 100 ML IV SCH ×4 (00:18→23:23)
[2016-10-15] MEDS: OXAZEPAM 15 MG CAP PO SCH ×5 (00:18→23:23)
[2016-10-15] MEDS: IPRATROPIUM 0.5MG/ALBUTEROL 2.5MG INH SOL UD 3ML (DUONEB)(J7620) NEB SCH ×7 (04:00→23:30)
[2016-10-15] MEDS: methylPREDNISolone INJ 125 MG/2 ML VIAL (J2930) IV SCH (05:02)
[2016-10-15] MEDS: FUROSEMIDE 40 MG/4 ML VIAL (J1940) IV SCH (05:02)
[2016-10-15] MEDS: LEVOTHYROXINE 0.05 MG TAB (50 MCG) PO SCH (05:02)
[2016-10-15] MEDS: SLF 3 ML SYR IV SCH ×3 (05:06→20:27)
[2016-10-15 06:19] LABS: BASO % 0.2 % (0.0-1.0); EOS % 0.2 % (0.0-3.0); LARGE UNSTAINED CELL % 0.8 % (0.0-4.0); LYMPH # 0.4 K/mm3 (1.5-4.5); LYMPH % 6.4 % (24.0-44.0); MEAN CORPUSCULAR HEMOGLOBIN 30.2 pg (27.0-33.0); MEAN CORPUSCULAR HGB CONC 31.7 g/dl (32.0-36.5); MEAN CORPUSCULAR VOLUME 95.3 fl (80.0-96.0); MONO # 0.1 K/mm3 (0.0-0.8); NEUTROPHILS # 4.6 K/mm3 (1.8-7.7); NEUTROPHILS % 90.4 % (36.0-66.0); PLATELET COUNT, AUTOMATED 131 k/mm3 (150-450); RED CELL DISTRIBUTION WIDTH 15.9 % (11.5-14.5); WHITE BLOOD COUNT 5.1 K/mm3 (4.0-10.0)
[2016-10-15 06:31] LABS: ANION GAP 6 MEQ/L (8-16); BLOOD UREA NITROGEN 25 MG/DL (7-18); CALCIUM LEVEL 7.4 MG/DL (8.8-10.2); CARBON DIOXIDE LEVEL 37 MEQ/L (21-32); CHLORIDE LEVEL 99 MEQ/L (98-107); CREATININE FOR GFR 0.96 MG/DL (0.70-1.30); GLOMERULAR FILTRATION RATE > 60.0 (>42); GLUCOSE, FASTING 160 MG/DL (83-110); POTASSIUM SERUM 3.1 MEQ/L (3.5-5.1); SODIUM LEVEL 142 MEQ/L (136-145)
[2016-10-15] MEDS: ADVAIR HFA 115/21 INHALER INH SCH ×2 (07:57→22:06)
[2016-10-15] MEDS: guaiFENesin ER 600 MG TAB PO SCH ×2 (08:12→20:26)
[2016-10-15] MEDS: FOLIC ACID 1 MG TAB PO SCH (08:12)
[2016-10-15] MEDS: amLODIPine 10 MG TAB PO SCH (08:12)
[2016-10-15] MEDS: predniSONE 20 MG TAB PO SCH (08:12)
[2016-10-15] MEDS: hydrOXYzine 50 MG TAB PO SCH (08:12)
[2016-10-15] MEDS: MULTIVITAMINS/MINERALS THERAP 1 TAB PO SCH (08:13)
[2016-10-15] MEDS: TAMSULOSIN 0.4 MG CAP PO SCH (08:13)
[2016-10-15] MEDS: NYSTATIN 100,000 UNITS/GM TOPICAL PWD 15 GM TOP SCH ×2 (08:13→20:27)
[2016-10-15] MEDS: OMEPRAZOLE 20 MG CAP PO SCH (08:13)
[2016-10-15] MEDS: THIAMINE 100 MG TAB PO SCH (08:13)
[2016-10-15] MEDS: EUCERIN 120GM CREAM TOP PRN (10:16)
--- NOTE | 2016-10-15 11:11 | IPNPDOC ---
Text Note Date of Service The patient was seen on 10/15/16. NOTE Subjective: Pt states dyspnea is improving. Still has a productive cough, and requesting more nebulizers. No CP/palpitations. Objective: Vitals: (see below) General: No acute distress, laying comfortably in bed. HEENT: Moist mucous membranes. Neck: No JVD or lymphadenopathy Cardiac: RRR, No murmurs Pulm: Diminished breath sounds and coarse crackles b/l bases R>L. Minimal exp wheezing. No rhonchi Abd: NT/ND + BS Ext: Trace edema BLE. No cyanosis. Labs (see below) Images: CTA Chest 10/11/16 Impression: 1. No CT evidence of pulmonary embolus. 2. Moderate size right pleural effusion increased in size from 06/06/2016 prior exam. 3. Stable right upper lobe 16 mm nodule. 4. New nodule left lower lobe 9 mm in diameter. BLE U/S 10/11/16 Impression: Positive study on the right with a short segment of mural echogenic material along the lateral wall of the distal femoral vein consistent with DVT, possibly chronic. Otherwise negative right lower extremity duplex venous ultrasound. Negative left lower extremity duplex venous ultrasound. Assessment/Plan 1. Acute diastolic heart failure- echocardiogram in May with a preserved EF. Lasix changed to PO. Cardiac enzymes negative. Repeat echocardiogram pending 2. Acute COPD exacerbation - on 3L NC at home, requiring 5L on presentation. on steroids, nebs. Respiratory panel negative. Mucinex. Azithromycin 3. Likely chronic DVT - On eliquis 4. H/o AF - on eliquis, metoprolol 5. Alcohol abuse- serax, B12, thiamine, ativan, folic acid, MVI 6. Hypothyroidism - on synthroid 7. Chronic urinary retention - start flomax. has amador at this time for diuresis. 8. Pleural effusion - persistent;afebrile. Thoracentesis for tomorrow. Eliquis on hold today; restart tomorrow. 9. Pulmonary nodule - will need close outpt f/u and repeat CT Chest. DVT prophy: Eliquis VS,Fishbone, I+O VS, Fishbone, I+O Laboratory Tests 10/15/16 05:43 Calcium Level 7.4 L, Red Blood Count 3.73 L, Mean Corpuscular Volume 95.3, Mean Corpuscular Hemoglobin 30.2, Mean Corpuscular Hemoglobin Concent 31.7 L, Red Cell Distribution Width 15.9 H, Neutrophils (%) (Auto) 90.4 H, Lymphocytes (%) ( Auto) 6.4 L, Monocytes (%) (Auto) 2.0, Eosinophils (%) (Auto) 0.2, Basophils (% ) (Auto) 0.2, Neutrophils # (Auto) 4.6, Lymphocytes # (Auto) 0.4 L, Monocytes # (Auto) 0.1, Eosinophils # (Auto) 0.0, Basophils # (Auto) 0.0 Vital Signs Date Time Temp Pulse Resp B/P Pulse Ox O2 Delivery O2 Flow Rate FiO2 10/15/16 08:12 81 145/69 10/15/16 08:10 98.0 18 92 Nasal Cannula 3.0 10/11/16 16:21 95 I&O- Last 24 Hours up to 6 AM 10/15/16 06:00 Intake Total 1180 ml Output Total 2050 ml Balance -870 ml RAEANN LUTHER MD Oct 15, 2016 11:11
--- NOTE | 2016-10-15 13:28 | REP ---
CHEST, TWO VIEWS: Two views of the chest are performed and compared to prior chest radiograph 10/13/[address] 10/11/2016. There is decreased right pleural fluid. There is no pneumothorax. There does appear to be mild residual pleural fluid on the right. There is mild bibasilar atelectasis/infiltrate. There is mild cardiomegaly. IMPRESSION: Decreased amount of right pleural fluid status post right thoracentesis. No pneumothorax. Signed by Tyler Baca MD 10/15/2016 08:09 P
[2016-10-15 14:12] LABS: LDH, BODY FLUID 124 U/L (NOT ESTABLISHED); TOTAL PROTEIN, BODY FLUID 2.9 G/DL (NOT ESTABLISHED)
[2016-10-15 15:35] LABS: RBC PLEURAL FLUID 69 (<10mm3 cells/uL); TNC PLEURAL FLUID 201 cells/uL (0-20)
[2016-10-15 15:36] LABS: BF DIFF IF INDICATED? YES (NO)
[2016-10-15] MEDS: hydrOXYzine 25 MG TAB PO SCH ×2 (15:46→20:26)
[2016-10-15] MEDS: ASPIRIN 81 MG ENTERIC TAB PO SCH (15:46)
[2016-10-15 15:49] LABS: CC BF DIFF EXAM CYTOCENTRIFUGE
--- NOTE | 2016-10-15 17:36 | REP ---
ULTRASOUND GUIDED RIGHT THORACENTESIS: The procedure was performed under the direct supervision of Dr. Baca. The risks and benefits of the procedure were explained to the patient and informed consent was obtained. The right pleural effusion was localized using ultrasound guidance. The skin was prepped and draped in a sterile fashion. 1% lidocaine was used as a local anesthetic. An #8-[place] [id number] catheter was inserted using trocar technique. 1,550 mL of low viscosity red-colored fluid was withdrawn with a sample sent to the lab for analysis. The patient tolerated the procedure well and there were no immediate complications. Reviewed by MISHA Ohara 10/16/2016 05:13 PEdited and Signed by Tyler Baca MD 10/16/2016 05:20 P
[2016-10-15] MEDS: ALPRAZolam 0.25 MG TAB PO SCH (20:26)
[2016-10-15] MEDS: traZODone 50 MG TAB PO SCH (20:26)
[2016-10-15] MEDS: METOPROLOL SUCC *XL* 25MG TAB (TopROL *XL*) PO SCH (20:27)
[2016-10-15] MEDS: SIMVASTATIN 20 MG TAB PO SCH (20:27)
[2016-10-16 06:00] VITALS: BP 128/65
[2016-10-16] MEDS: SLF 3 ML SYR IV SCH ×3 (06:00→21:27)
[2016-10-16] MEDS: LEVOTHYROXINE 0.05 MG TAB (50 MCG) PO SCH (06:00)
[2016-10-16] MEDS: OXAZEPAM 15 MG CAP PO SCH ×3 (06:00→18:05)
[2016-10-16 07:14] LABS: BASO % 0.6 % (0.0-1.0); EOS % 0.1 % (0.0-3.0); LARGE UNSTAINED CELL # 0.1 K/mm3 (0.0-0.4); LARGE UNSTAINED CELL % 1.7 % (0.0-4.0); LYMPH # 0.7 K/mm3 (1.5-4.5); LYMPH % 9.8 % (24.0-44.0); MEAN CORPUSCULAR HGB CONC 33.6 g/dl (32.0-36.5); MEAN CORPUSCULAR VOLUME 95.4 fl (80.0-96.0); MONO # 0.3 K/mm3 (0.0-0.8); MONO % 4.5 % (0.0-5.0); NEUTROPHILS # 5.8 K/mm3 (1.8-7.7); NEUTROPHILS % 83.4 % (36.0-66.0); PLATELET COUNT, AUTOMATED 127 k/mm3 (150-450); RED CELL DISTRIBUTION WIDTH 15.7 % (11.5-14.5)
[2016-10-16 07:15] LABS: ANION GAP 5 MEQ/L (8-16); BLOOD UREA NITROGEN 27 MG/DL (7-18); CALCIUM LEVEL 7.5 MG/DL (8.8-10.2); CARBON DIOXIDE LEVEL 39 MEQ/L (21-32); CHLORIDE LEVEL 99 MEQ/L (98-107); GLOMERULAR FILTRATION RATE > 60.0 (>42); GLUCOSE, FASTING 84 MG/DL (83-110); POTASSIUM SERUM 3.5 MEQ/L (3.5-5.1); SODIUM LEVEL 143 MEQ/L (136-145)
[2016-10-16] MEDS: IPRATROPIUM 0.5MG/ALBUTEROL 2.5MG INH SOL UD 3ML (DUONEB)(J7620) NEB SCH ×4 (07:39→19:58)
[2016-10-16] MEDS: ADVAIR HFA 115/21 INHALER INH SCH (07:39)
[2016-10-16] MEDS: TAMSULOSIN 0.4 MG CAP PO SCH (08:35)
[2016-10-16] MEDS: predniSONE 20 MG TAB PO SCH (08:35)
[2016-10-16] MEDS: MEROPENEM INJ 1 GM in D5W MINI-BAG PLUS 100 ML IV SCH ×2 (08:36→16:39)
[2016-10-16] MEDS: OMEPRAZOLE 20 MG CAP PO SCH (08:37)
[2016-10-16] MEDS: MULTIVITAMINS/MINERALS THERAP 1 TAB PO SCH (08:37)
[2016-10-16] MEDS: amLODIPine 10 MG TAB PO SCH (08:37)
[2016-10-16] MEDS: guaiFENesin ER 600 MG TAB PO SCH ×2 (08:37→21:26)
[2016-10-16] MEDS: FOLIC ACID 1 MG TAB PO SCH (08:37)
[2016-10-16] MEDS: APIXABAN 5 MG TAB (ELIQUIS) PO SCH ×2 (08:37→21:27)
[2016-10-16] MEDS: ASPIRIN 81 MG ENTERIC TAB PO SCH (08:37)
[2016-10-16] MEDS: NYSTATIN 100,000 UNITS/GM TOPICAL PWD 15 GM TOP SCH ×2 (08:38→21:27)
[2016-10-16] MEDS: THIAMINE 100 MG TAB PO SCH (08:38)
[2016-10-16] MEDS: hydrOXYzine 50 MG TAB PO SCH (08:38)
[2016-10-16] MEDS: EUCERIN 120GM CREAM TOP PRN (08:39)
[2016-10-16] MEDS: DOCUSATE SODIUM 100 MG CAP PO PRN (08:50)
[2016-10-16] MEDS ORDERED: FUROSEMIDE 40 MG TAB PO SCH (09:00)
[2016-10-16] MEDS ORDERED: SENOKOT S TAB PO PRN (10:30)
[2016-10-16] MEDS ORDERED: MIRALAX *UNIT DOSE* 17GM PACKET PO PRN (10:30)
[2016-10-16 14:00] VITALS: BP 134/76
--- NOTE | 2016-10-16 16:13 | IPN ---
DATE: 10/16/2016 SUBJECTIVE: Patient seen and examined in the room today. Patient stated his breathing shows improvement after the thoracentesis yesterday. Patient tolerated the procedure well. Patient stated he tried to follow the fluid restriction at home prior to hospitalization. He usually drinks 1-2 cups of fluid, mainly water or coffee in the morning; however, the family member who was the person in the room stated after 3 o'clock, patient started having an issue with significant alcohol consumption and most of the time he will consume multiple can or bottle of beer. He never counts the alcohol intake towards the daily allowance. OBJECTIVE: VITAL SIGNS: Temperature 97.8, pulse 58, respiration rate 19, blood pressure 128/65, pulse oximetry 98% with 3 liters nasal cannula. GENERAL: No signs of acute distress. Alert and oriented times three. HEENT: Normocephalic, atraumatic. Extraocular motor grossly intact. CARDIOVASCULAR: Positive S1, S2. Regular rate. LUNGS: Decreased breath sounds. There are still some bilateral crackles, but is improving. No audible wheezes appreciated. ABDOMEN: Soft, nontender, nondistended. Bowel sounds present. EXTREMITIES: No edema. No signs of cyanosis. LABORATORY DATA: WBC 7, hemoglobin 11.4, hematocrit 34, platelet count 127. Sodium 143, potassium 3.5, chloride 99, carbon dioxide 39, BUN 27, creatinine 0.9, GFR greater than 60, fasting glucose 84, calcium 7.4. ASSESSMENT AND PLAN: 1. Acute respiratory distress secondary to acute diastolic congestive heart failure and significant pleural effusion. Patient's condition is also complicated by the chronic obstructive pulmonary disease (COPD) exacerbation. Improving. Continue tapering Lasix and steroids. Patient currently on fluid restriction. 2. Acute diastolic congestive heart failure. Echocardiogram in 05/2016 showed a preserved ejection fraction (EF). Currently, patient has maintained negative fluid balance for the past few days. Patient breathing is improving with tapering the Lasix. At baseline, patient does not take any Lasix diuresis. Patient has been poorly compliant with the fluid restriction. Patient has multiple beer consumption in the afternoon and he never counts towards his daily allowance. 3. Acute chronic obstructive pulmonary disease (COPD) exacerbation. Breathing treatment as needed. At baseline, patient is on 3 liters nasal cannula. Currently, patient's oxygen requirement is near baseline. Patient is on tapering dose of steroids. 4. Chronic deep venous thrombosis (DVT). On Eliquis. 5. History of atrial fibrillation. On Eliquis and metoprolol. 6. Alcohol abuse. Serax, B12, thiamine, multivitamin and folic acid. 7. Hypothyroidism. On Synthroid. 8. Chronic urinary retention. On Flomax. 9. Pleural effusion. Patient tolerated the thoracentesis well. Eliquis is restarted. Pathology is pending. Cytology shows no malignancy. 10. Deep venous thrombosis (DVT) prophylaxis. Patient is on Eliquis.
[2016-10-16] MEDS: hydrOXYzine 25 MG TAB PO SCH ×2 (16:39→21:27)
[2016-10-16] MEDS: SIMVASTATIN 20 MG TAB PO SCH (21:26)
[2016-10-16] MEDS: traZODone 50 MG TAB PO SCH (21:27)
[2016-10-16] MEDS: ALPRAZolam 0.25 MG TAB PO SCH (21:27)
[2016-10-16] MEDS: METOPROLOL SUCC *XL* 25MG TAB (TopROL *XL*) PO SCH (21:28)
[2016-10-16 22:00] VITALS: BP 139/65
[2016-10-17] MEDS: MEROPENEM INJ 1 GM in D5W MINI-BAG PLUS 100 ML IV SCH ×4 (00:01→23:36)
[2016-10-17] MEDS: SLF 3 ML SYR IV SCH ×3 (00:02→21:17)
[2016-10-17] MEDS: OXAZEPAM 15 MG CAP PO SCH ×5 (00:02→23:36)
[2016-10-17] MEDS: IPRATROPIUM 0.5MG/ALBUTEROL 2.5MG INH SOL UD 3ML (DUONEB)(J7620) NEB SCH ×7 (04:00→22:57)
[2016-10-17] MEDS: LEVOTHYROXINE 0.05 MG TAB (50 MCG) PO SCH (05:08)
[2016-10-17 06:00] VITALS: BP 146/76
[2016-10-17 07:09] LABS: MEAN CORPUSCULAR HEMOGLOBIN 33.4 pg (27.0-33.0); MEAN CORPUSCULAR HGB CONC 35.1 g/dl (32.0-36.5); MEAN CORPUSCULAR VOLUME 95.2 fl (80.0-96.0); PLATELET COUNT, AUTOMATED 119 k/mm3 (150-450); RED CELL DISTRIBUTION WIDTH 15.6 % (11.5-14.5); WHITE BLOOD COUNT 6.5 K/mm3 (4.0-10.0)
[2016-10-17 07:14] LABS: ANION GAP 4 MEQ/L (8-16); BLOOD UREA NITROGEN 28 MG/DL (7-18); CALCIUM LEVEL 7.3 MG/DL (8.8-10.2); CARBON DIOXIDE LEVEL 38 MEQ/L (21-32); CHLORIDE LEVEL 100 MEQ/L (98-107); CREATININE FOR GFR 0.86 MG/DL (0.70-1.30); GLOMERULAR FILTRATION RATE > 60.0 (>42); GLUCOSE, FASTING 78 MG/DL (83-110); POTASSIUM SERUM 3.5 MEQ/L (3.5-5.1); SODIUM LEVEL 142 MEQ/L (136-145)
[2016-10-17 07:49] LABS: ANISOCYTOSIS 1+; BANDS 1 % (< 11); EOSINOPHILS 1 % (0-5); HYPOCHROMASIA 1+
[2016-10-17] MEDS: MOM 30ML SUSPENSION UDC PO PRN ×2 (08:09→21:16)
[2016-10-17] MEDS: guaiFENesin ER 600 MG TAB PO SCH ×2 (08:10→21:16)
[2016-10-17] MEDS: TAMSULOSIN 0.4 MG CAP PO SCH (08:10)
[2016-10-17] MEDS: FOLIC ACID 1 MG TAB PO SCH (08:11)
[2016-10-17] MEDS: FUROSEMIDE 20 MG TAB PO SCH (08:11)
[2016-10-17] MEDS: ASPIRIN 81 MG ENTERIC TAB PO SCH (08:12)
[2016-10-17] MEDS: amLODIPine 10 MG TAB PO SCH (08:12)
[2016-10-17] MEDS: hydrOXYzine 50 MG TAB PO SCH (08:13)
[2016-10-17] MEDS: THIAMINE 100 MG TAB PO SCH (08:13)
[2016-10-17] MEDS: predniSONE 20 MG TAB PO SCH (08:13)
[2016-10-17] MEDS: MULTIVITAMINS/MINERALS THERAP 1 TAB PO SCH (08:13)
[2016-10-17] MEDS: OMEPRAZOLE 20 MG CAP PO SCH (08:13)
[2016-10-17] MEDS: NYSTATIN 100,000 UNITS/GM TOPICAL PWD 15 GM TOP SCH ×2 (08:14→21:17)
[2016-10-17] MEDS: EUCERIN 120GM CREAM TOP PRN (08:14)
[2016-10-17] MEDS: APIXABAN 5 MG TAB (ELIQUIS) PO SCH ×2 (08:14→21:16)
[2016-10-17] MEDS: MIRALAX *UNIT DOSE* 17GM PACKET PO SCH ×2 (09:00→14:47)
--- NOTE | 2016-10-17 14:02 | IPN ---
DATE: 10/17/2016 SUBJECTIVE: The patient seen and examined in the room today. The patient feels his breathing is not back to his baseline yet. The patient had noticed the fluid in the dependent area has shown significant decrease. The patient complains about congestion from the sputum and it is very hard for him to get it up from the chest. Otherwise, no acute complaints or acute changes. OBJECTIVE: VITAL SIGNS: Temperature 98.5, pulse 67, respiration rate 18, blood pressure is 146/76, pulse ox is 94% with 3 liters nasal cannula. GENERAL: No sign of acute distress. Alert and oriented times three. HEENT: Normocephalic, atraumatic. Extraocular movement intact. CARDIOVASCULAR: S1, S2 regular rate. LUNG: Positive expiratory wheezes in bilateral lung. Mild crackles bilaterally, but improved compared to yesterday. ABDOMEN: Soft, nontender, nondistended. Bowel sounds present. EXTREMITIES: Lower extremity edema has showed significant improvement. There are multiple wrinkles visible in the bilateral lower extremities. No sign of cyanosis. LABORATORY DATA: WBC 6.5, hemoglobin 11.8, hematocrit 33.7, platelet counts 119. Sodium 142, potassium 3.5, chloride 100, carbon dioxide 38, BUN 28, creatinine is 0.86, GFR is greater than 60, fasting glucose is 78. Calcium 7.3. ASSESSMENT/PLAN: 1. Acute respiratory distress secondary to acute diastolic congestive heart failure and significant pleural effusion combined with COPD exacerbation. The patient is on tapering dose of Lasix and steroids. The patient's breathing is approaching his baseline. The patient is on fluid restriction. 2. Acute diastolic congestive heart failure. Since admission, the patient has a negative fluid balance with the help of Lasix diuresis. The patient is instructed to be strictly compliant with fluid restriction. At home, the patient is not taking any diuretics. This could be an issue with compliance due to multiple beer consumptions usually in the late afternoon when the patient was at home. The patient stated that is the only thing that will give him some pleasure. 3. Acute COPD exacerbation: The patient is on a tapering dose of steroids. At baseline, the patient is taking prednisone 10 mg by mouth daily. Currently, the patient is on 20 mg by mouth daily. Oxygen requirement is near baseline, which is 3 liters nasal cannula. 4. Chronic deep venous thrombosis on Eliquis. 5. History of atrial fibrillation on Eliquis and metoprolol. 6. Alcohol abuse: On Serax, thiamine, multivitamin and folic acid. 7. Hypothyroidism: On Synthroid. 8. Chronic renal urinary retention: At baseline, the patient will self-catheterize himself nightly. Currently the patient has a Nava catheter. The patient is on Flomax. 9. History of pleural effusion: The patient had a thoracentesis and 1.5 liters of pleural fluid was drained. Cytology showed no malignancy. Pathology showed reactive mesothelial cells and macrophages. Eliquis already started shortly after the procedure. 10. Urinary tract infection: Culture grew out Klebsiella currently the patient is taking meropenem. 11. Deep venous thrombosis prophylaxis: The patient is on Eliquis.
[2016-10-17] MEDS: hydrOXYzine 25 MG TAB PO SCH ×2 (15:43→21:16)
[2016-10-17 19:42] VITALS: O2SAT 97
[2016-10-17 20:18] VITALS: BP 141/69
[2016-10-17] MEDS: ALPRAZolam 0.25 MG TAB PO SCH (21:16)
[2016-10-17] MEDS: DOCUSATE SODIUM 100 MG CAP PO PRN (21:16)
[2016-10-17] MEDS: METOPROLOL SUCC *XL* 25MG TAB (TopROL *XL*) PO SCH (21:17)
[2016-10-17] MEDS: SIMVASTATIN 20 MG TAB PO SCH (21:17)
[2016-10-17] MEDS: traZODone 50 MG TAB PO SCH (21:17)
[2016-10-18] MEDS: IPRATROPIUM 0.5MG/ALBUTEROL 2.5MG INH SOL UD 3ML (DUONEB)(J7620) NEB SCH ×6 (03:06→23:36)
[2016-10-18 06:00] VITALS: BP 148/85
[2016-10-18] MEDS: OXAZEPAM 15 MG CAP PO SCH ×4 (06:01→23:53)
[2016-10-18] MEDS: SLF 3 ML SYR IV SCH ×3 (06:01→22:08)
[2016-10-18] MEDS: LEVOTHYROXINE 0.05 MG TAB (50 MCG) PO SCH (06:01)
[2016-10-18 07:09] LABS: MEAN CORPUSCULAR HEMOGLOBIN 30.1 pg (27.0-33.0); MEAN CORPUSCULAR HGB CONC 31.9 g/dl (32.0-36.5); MEAN CORPUSCULAR VOLUME 94.1 fl (80.0-96.0); PLATELET COUNT, AUTOMATED 126 k/mm3 (150-450); RED CELL DISTRIBUTION WIDTH 15.4 % (11.5-14.5); WHITE BLOOD COUNT 6.8 K/mm3 (4.0-10.0)
[2016-10-18 07:11] LABS: ANION GAP 1 MEQ/L (8-16); BLOOD UREA NITROGEN 25 MG/DL (7-18); CALCIUM LEVEL 7.8 MG/DL (8.8-10.2); CARBON DIOXIDE LEVEL 41 MEQ/L (21-32); CHLORIDE LEVEL 101 MEQ/L (98-107); CREATININE FOR GFR 0.77 MG/DL (0.70-1.30); GLOMERULAR FILTRATION RATE > 60.0 (>42); GLUCOSE, FASTING 75 MG/DL (83-110); POTASSIUM SERUM 3.7 MEQ/L (3.5-5.1); SODIUM LEVEL 143 MEQ/L (136-145)
[2016-10-18 08:05] LABS: EOSINOPHILS 5 % (0-5)
[2016-10-18 08:06] LABS: PLATELET CLUMPS SMALL AMT
[2016-10-18] MEDS: THIAMINE 100 MG TAB PO SCH (09:18)
[2016-10-18] MEDS: FOLIC ACID 1 MG TAB PO SCH (09:18)
[2016-10-18] MEDS: hydrOXYzine 50 MG TAB PO SCH (09:18)
[2016-10-18] MEDS: FUROSEMIDE 20 MG TAB PO SCH (09:18)
[2016-10-18] MEDS: ASPIRIN 81 MG ENTERIC TAB PO SCH (09:18)
[2016-10-18] MEDS: guaiFENesin ER 600 MG TAB PO SCH ×2 (09:18→20:39)
[2016-10-18] MEDS: APIXABAN 5 MG TAB (ELIQUIS) PO SCH ×2 (09:18→20:39)
[2016-10-18] MEDS: MULTIVITAMINS/MINERALS THERAP 1 TAB PO SCH (09:18)
[2016-10-18] MEDS: TAMSULOSIN 0.4 MG CAP PO SCH (09:18)
[2016-10-18] MEDS: MEROPENEM INJ 1 GM in D5W MINI-BAG PLUS 100 ML IV SCH ×3 (09:19→23:53)
[2016-10-18] MEDS: amLODIPine 10 MG TAB PO SCH (09:19)
[2016-10-18] MEDS: OMEPRAZOLE 20 MG CAP PO SCH (09:19)
[2016-10-18] MEDS: predniSONE 20 MG TAB PO SCH (09:19)
[2016-10-18] MEDS: NYSTATIN 100,000 UNITS/GM TOPICAL PWD 15 GM TOP SCH ×2 (09:20→20:41)
[2016-10-18 14:00] VITALS: BP 147/70
[2016-10-18] MEDS: hydrOXYzine 25 MG TAB PO SCH ×2 (17:05→20:39)
--- NOTE | 2016-10-18 20:03 | IPN ---
DATE: 10/18/2016 SUBJECTIVE: The patient is seen and examined in the room today. The patient still complains about congestion inside the lung and he has been using Acapella. He started to see more sputum production; however, there is still significant congestion and he does not feel that his breathing is back to his baseline. The patient's caregiver, the daughter, who has been taking care of the patient for a long time also expressed concern that the patient's breathing may not be optimal , and they do not feel comfortable that the patient can be home. OBJECTIVE: VITAL SIGNS: Temperature is 98.5, pulse is 91, respirations 18, blood pressure is 148/85, pulse oximetry is 95% with 3 liters nasal cannula. GENERAL: Fatigue. No sign of acute distress. Alert and oriented times three. HEENT: Normocephalic, atraumatic. Extraocular motor grossly intact. CARDIOVASCULAR: Positive S1, S2, regular rate. LUNGS: Still has significant expiratory wheezes, mild crackles bilaterally. ABDOMEN: Soft, nontender, nondistended. Bowel sounds present. EXTREMITIES: Edema in all four extremities has shown significant improvement, actually multiple wrinkles visible. No sign of cyanosis. LABORATORY DATA: WBC is 6.8, hemoglobin 11, hematocrit is 34.5, platelet count is 126. Sodium is 143, potassium 3.7, chloride is 101, carbon dioxide is 41, BUN 25, creatinine 0.77, GFR greater than 60, fasting glucose is 75, calcium is 7.8. ASSESSMENT AND PLAN: 1. Acute respiratory distress secondary to acute diastolic congestive heart failure and significant pleural effusion combined with chronic obstructive pulmonary disease (COPD) exacerbation. Currently, the patient is on tapering dose of steroids and the patient's Lasix regimen has also been adjusted, and patient also taking antibiotics. However, the patient's respiratory status is now back to his baseline at this moment. The patient is still being optimized at this moment. 2. Acute diastolic congestive heart failure. Currently, the patient's input and output has been monitored continuously and the patient's Lasix regimen has also been adjusted. 3. Acute COPD exacerbation. At baseline, the patient is using 3 liters nasal cannula, and the patient is taking 10 mg of prednisone daily. Currently, the patient is still having significant wheezes, required frequent nebulizer treatments. The patient also on more than his baseline steroid supplement. 4. Chronic deep vein thrombosis (DVT). On Eliquis. 5. History of atrial fibrillation. On Eliquis and metoprolol. 6. History of alcohol abuse. On Serax, thiamine and multivitamin and folic acid. 7. Hypothyroidism. On supplement. 8. Chronic urinary retention. At baseline, the patient uses a self catheter nightly. The patient currently has a Nava catheter. Will continue to monitor input and output. The patient is on Flomax. 9. History of pleural effusion. The patient had a thoracentesis done and 1.5 liters of fluid was drained. Cytology showed no malignancy. Pathology showed reactive mesothelial cells and macrophages. Eliquis restarted after the thoracentesis. 10. Urinary tract infection (UTI). The patient's culture grew Klebsiella. The patient is currently taking meropenem. The patient did have multiple drug allergies. 11. Deep vein thrombosis (DVT) prophylaxis. On Eliquis. MTDD
[2016-10-18] MEDS: SIMVASTATIN 20 MG TAB PO SCH (20:39)
[2016-10-18] MEDS: ALPRAZolam 0.25 MG TAB PO SCH (20:39)
[2016-10-18] MEDS: traZODone 50 MG TAB PO SCH (20:40)
[2016-10-18] MEDS: METOPROLOL SUCC *XL* 25MG TAB (TopROL *XL*) PO SCH (20:40)
[2016-10-18 22:00] VITALS: BP 144/65
[2016-10-19] MEDS: IPRATROPIUM 0.5MG/ALBUTEROL 2.5MG INH SOL UD 3ML (DUONEB)(J7620) NEB SCH ×3 (04:00→10:52)
[2016-10-19] MEDS: OXAZEPAM 15 MG CAP PO SCH ×2 (05:37→11:22)
[2016-10-19] MEDS: SLF 3 ML SYR IV SCH ×2 (05:37→11:19)
[2016-10-19] MEDS: LEVOTHYROXINE 0.05 MG TAB (50 MCG) PO SCH (05:37)
[2016-10-19 06:00] VITALS: BP 132/71
[2016-10-19] MEDS: MEROPENEM INJ 1 GM in D5W MINI-BAG PLUS 100 ML IV SCH (08:51)
[2016-10-19] MEDS: THIAMINE 100 MG TAB PO SCH (08:51)
[2016-10-19] MEDS: MIRALAX *UNIT DOSE* 17GM PACKET PO SCH (08:51)
[2016-10-19] MEDS: guaiFENesin ER 600 MG TAB PO SCH (08:51)
[2016-10-19] MEDS: MULTIVITAMINS/MINERALS THERAP 1 TAB PO SCH (08:51)
[2016-10-19] MEDS: TAMSULOSIN 0.4 MG CAP PO SCH (08:51)
[2016-10-19 08:52] VITALS: BP 127/60
[2016-10-19] MEDS: hydrOXYzine 50 MG TAB PO SCH (08:52)
[2016-10-19] MEDS: FUROSEMIDE 20 MG TAB PO SCH (08:52)
[2016-10-19] MEDS: amLODIPine 10 MG TAB PO SCH (08:52)
[2016-10-19] MEDS: APIXABAN 5 MG TAB (ELIQUIS) PO SCH (08:52)
[2016-10-19] MEDS: predniSONE 20 MG TAB PO SCH (08:52)
[2016-10-19] MEDS: FOLIC ACID 1 MG TAB PO SCH (08:52)
[2016-10-19] MEDS: ASPIRIN 81 MG ENTERIC TAB PO SCH (08:52)
[2016-10-19] MEDS: OMEPRAZOLE 20 MG CAP PO SCH (08:52)
[2016-10-19] MEDS: NYSTATIN 100,000 UNITS/GM TOPICAL PWD 15 GM TOP SCH (08:53)
[2016-10-19] MEDS ORDERED: FURO20TA2 PO (10:25)
[2016-10-19 10:48] LABS: MEAN CORPUSCULAR HEMOGLOBIN 31.7 pg (27.0-33.0); MEAN CORPUSCULAR HGB CONC 33.1 g/dl (32.0-36.5); MEAN CORPUSCULAR VOLUME 95.7 fl (80.0-96.0); PLATELET COUNT, AUTOMATED 134 k/mm3 (150-450); RED CELL DISTRIBUTION WIDTH 15.5 % (11.5-14.5)
[2016-10-19 11:08] LABS: ANION GAP 1 MEQ/L (8-16); BLOOD UREA NITROGEN 19 MG/DL (7-18); CALCIUM LEVEL 7.7 MG/DL (8.8-10.2); CARBON DIOXIDE LEVEL 42 MEQ/L (21-32); CHLORIDE LEVEL 102 MEQ/L (98-107); CREATININE FOR GFR 0.79 MG/DL (0.70-1.30); GLOMERULAR FILTRATION RATE > 60.0 (>42); GLUCOSE, FASTING 79 MG/DL (83-110); POTASSIUM SERUM 3.8 MEQ/L (3.5-5.1); SODIUM LEVEL 145 MEQ/L (136-145)
[2016-10-19 12:35] LABS: ANISOCYTOSIS 1+; BANDS 1 % (< 11); EOSINOPHILS 3 % (0-5); PLASMA CELL 1 % (0-0)
--- NOTE | 2016-10-19 18:30 | DSES ---
DATE OF ADMISSION: 10/11/2016 DATE OF DISCHARGE: 10/19/2016 PRIMARY CARE PROVIDER: Dr. Mary Ibrahim GAUGE [employer] MACHINE ADJUSTER: Dr. Moore CONSULTANTS: None. PROCEDURES: None. COMPLICATIONS: None. ADMISSION/DISCHARGE DIAGNOSES: 1. Acute respiratory distress. 2. Acute diastolic congestive heart failure exacerbation. 3. Severe pleural effusion. 4. Chronic obstructive pulmonary disease (COPD) exacerbation. 5. Chronic deep vein thrombosis (DVT), on Eliquis. 6. History of atrial fibrillation. 7. History of alcohol abuse. 8. Hypothyroidism. 9. Chronic urinary retention. 10. Urinary tract infection from Klebsiella. HOSPITALIZATION COURSE: The patient is a 76-year-old male who presented to [facility] on 10/11/2016 for increased difficulty breathing with chills. The patient was admitted to telemetry, culture samples obtained and the patient started on IV diuresis. Patient also started on steroids and nebulizer treatment for patient's acute COPD exacerbation. During admission, the patient was also found to have a significant pleural effusion. However, pleural effusion has been persistent and did not improve with diuresis and thoracentesis was scheduled on 10/15/2016. Later, the patient's sputum and urine culture came back positive, and the patient was started on IV antibiotics based on the sensitivity and after reviewing the patient's drug allergies. With medical management, the patient showed continued improvement and patient's breathing was approaching his baseline, which is 3 liters nasal cannula. On 10/19/2016, the patient was determined to be stable for discharge with recommendation to followup with primary care provider within 1 week, and the patient should followup with pulmonology at the next scheduled appointment. The patient's fluid status has been under close monitoring, and the patient's medications being optimized. However, during the hospitalization stay, from the patient's care technician/proxy, the patient has a habit of drinking an excessive amount of alcohol in the afternoon, and the patient is not counting that alcohol consumption towards the fluid restriction, and it became very difficult to adjust the patient's diuretic dosage. In the hospital, the patient has been able to maintain a negative fluid balance with only 20 mg of Lasix. The patient was recommended to be very compliant with the fluid restriction, and the patient was encouraged to measure the weight on a daily basis. The patient expressed understanding on multiple occasions during the hospitalization stay. OBJECTIVE: VITAL SIGNS: Temperature is 97.8, pulse is 58, respirations 20, blood pressure is 132/71, pulse oximetry is 97% with 3 liters nasal cannula. LABORATORY DATA: WBC is 9, hemoglobin 11.6, hematocrit 35.1, platelet count is 134. Sodium is 145, potassium 3.8, chloride 102, carbon dioxide is 42, BUN 19, creatinine 0.79, GFR greater than 60, fasting glucose is 79 and calcium is 7.7. Microbiology: Blood cultures are negative after 5 days times two sets; sample collected on 10/11/2016. Sputum is positive for Stenotrophomonas maltophilia, sample collected on 10/12/2016. Respiratory panel on 10/12/2016 was negative. Urine culture showed positive for Klebsiella pneumoniae, sample collected on 10/12/2016. Pleural fluid culture collected on 10/15/2016 is negative. IMAGING STUDIES: Chest x-ray on 10/11/2016 showed moderate right pleural effusion, cardiomegaly and pulmonary vascular cephalization pattern consistent with congestive heart failure. CT angiogram performed on 10/11/[address] evidence of pulmonary embolism. Moderate sized right pleural effusion, increasing in size from May 2016. Stable right upper lobe 16 mm nodule. New nodule left lower lobe 9 mm in diameter. Chest x-ray on 10/15/2016 showed decreased amount of right pleural effusion, status post right thoracentesis. No pneumothorax. DISCHARGE INSTRUCTIONS: Discontinue line. Discharge home. Activity as tolerated. Low salt diet as tolerated. The patient should followup with 1.7 liter fluid restriction. Patient recommended to decrease alcohol usage, and the patient should count all the fluid into his allowed fluid limit. The patient should followup with his primary care provider within 1 week. The patient should also followup with pulmonology with regards to his significant heart disease and pulmonary nodules. There was one new lung nodule detected on the CT scan. DISCHARGE MEDICATIONS: - Lasix 20 mg by mouth daily - Ventolin two puff inhalation every 4 hours as needed - albuterol/ipratropium inhalation every 4 hours as needed - alprazolam 0.5 mg by mouth nightly for insomnia - amlodipine 10 mg by mouth daily - Eliquis 5 mg by mouth twice a day - aspirin 81 mg by mouth daily - Colace 100 mg by mouth twice a day as needed for constipation - folic acid 1 mg by mouth daily - Mucinex 600 mg by mouth three times a day - hydroxyzine 50 mg by mouth every morning - hydroxyzine 25 mg by mouth twice a day - lactulose 15 mL by mouth twice a day as needed for constipation - levothyroxine 50 mcg by mouth daily - metoprolol succinate 25 mg by mouth nightly - multivitamin one tablet by mouth daily - omeprazole 20 mg by mouth daily - prednisone 10 mg by mouth daily - Advair two puff inhalation twice a day - simvastatin 20 mg by mouth nightly - Flomax 0.8 mg by mouth daily - thiamine 100 mg by mouth daily - Spiriva inhalation daily - trazodone 50 mg by mouth nightly DISCHARGE CONDITION: Fair. DISCHARGE TIME: Greater than 30 minutes. MTDD
== END 2016-10-19 13:06 | disposition home or self-care (01) | DRG 292 ==
LOC: M ED 16:42 → M ED INP 18:54 → M PCU 20:38 → M MSPAV 10-14 17:09
PROVIDERS: ADMIT Internal Medicine; ATTEND Internal Medicine
PROC: 0W993ZZ Drainage of Right Pleural Cavity, Percutaneous Approach (ICD-10-PCS; principal; 2016-10-15)
DX: I11.0 Hypertensive heart disease with heart failure (principal); J44.1 Chronic obstructive pulmonary disease with (acute) exacerbation; I82.511 Chronic embolism and thrombosis of right femoral vein; J90 Pleural effusion, not elsewhere classified; N39.0 Urinary tract infection, site not specified; I50.33 Acute on chronic diastolic (congestive) heart failure; I48.91 Unspecified atrial fibrillation; E03.9 Hypothyroidism, unspecified; R06.00 Dyspnea, unspecified; N40.0 Benign prostatic hyperplasia without lower urinary tract symptoms; E78.5 Hyperlipidemia, unspecified; K21.9 Gastro-esophageal reflux disease without esophagitis; B96.1 Klebsiella pneumoniae [K. pneumoniae] as the cause of diseases classified elsewhere; R91.1 Solitary pulmonary nodule; R33.9 Retention of urine, unspecified; F41.9 Anxiety disorder, unspecified; F10.10 Alcohol abuse, uncomplicated; Z79.01 Long term (current) use of anticoagulants; Z79.82 Long term (current) use of aspirin; Z79.899 Other long term (current) drug therapy; Z79.52 Long term (current) use of systemic steroids; Z88.1 Allergy status to other antibiotic agents; Z88.0 Allergy status to penicillin; Z88.2 Allergy status to sulfonamides; Z91.040 Latex allergy status; Z88.8 Allergy status to other drugs, medicaments and biological substances; Z88.6 Allergy status to analgesic agent; Z83.3 Family history of diabetes mellitus; Z82.49 Family history of ischemic heart disease and other diseases of the circulatory system; Z80.3 Family history of malignant neoplasm of breast; Z87.891 Personal history of nicotine dependence

== ENCOUNTER 2017-04-21 22:42 | Inpatient (IN) | payer MEDICARE ==
[~2017-04-21] VITALS: Ht 188 cm; Wt 99.0 kg
[2017-04-21] MEDS: SIMVASTATIN 20 MG TAB PO SCH (21:00)
[2017-04-21] MEDS: ALPRAZolam 0.25 MG TAB PO SCH (21:00)
[2017-04-21] MEDS: METOPROLOL SUCC *XL* 25MG TAB (TopROL *XL*) PO SCH (21:00)
[2017-04-21] MEDS: traZODone 50 MG TAB PO SCH (21:00)
[~2017-04-21 22:42] MED LIST changes: +ALPR0.5T3 PO; -COLA100C3 PO; +COLA100C5 PO; -FOLI1TAB2 PO; +FOLI1TAB4 PO; +HYDR-3363 PO; -HYDR-4274 PO; -HYDR25T PO; +HYDR50TA70 PO; +IPRASOL4 INH; +LEVO50TA45 PO; +METO1TAB32 PO; -METO25TA74 PO; -MUCI600T34 PO; +MUCI600T37 PO; +REFR0.5D8 OU; +SPIR12.9 INH; -THIA100T PO; +THIA100T6 PO; +TRAZ50TA11 PO; -TRAZ50TA4 PO
[2017-04-21] MEDS ORDERED: NS 1,000 ML IV ONE (23:00)
[2017-04-21] MEDS ORDERED: methylPREDNISolone INJ 125 MG/2 ML VIAL (J2930) IV ONE (23:00)
[2017-04-21] MEDS ORDERED: ASPIRIN 81 MG CHEW TABLET PO ONE (23:00)
[2017-04-21] MEDS ORDERED: ACETAMINOPHEN 325 MG TAB PO ONE (23:00)
[2017-04-21] MEDS ORDERED: LASI40TA PO (23:02)
[2017-04-21] MEDS ORDERED: VITA100T2 PO (23:02)
[2017-04-21 23:03] LABS: ABG BASE EXCESS 12.6 (-2.0-2.0); ABG HCO3 37.3 MEQ/L (22.0-26.0); ABG PARTIAL PRESSURE CO2 48.8 mmHg (35.0-45.0); ABG PARTIAL PRESSURE O2 67.8 mmHg (75.0-100.0); ABG STANDARD HCO3 36.3 MEQ/L (22.0-26.0); ABG TOTAL CO2 38.8 MEQ/L (23.0-31.0); ABG pH (ARTERIAL) 7.501 UNITS (7.350-7.450)
[2017-04-21] MEDS: IPRATROPIUM 0.5MG/ALBUTEROL 2.5MG INH SOL UD 3ML (DUONEB)(J7620) NEB PRN ×3 (23:06→23:48)
[2017-04-21] MEDS ORDERED: AZITHROMYCIN INJ 500 MG, VIAL MATE ADAPTER 1 EACH in D5W 250 ML IV ONE (23:15)
[2017-04-21] MEDS ORDERED: CEFUROXIME SODIUM IV ONE (23:15)
[2017-04-21] MEDS ORDERED: D5W IV ONE (23:15)
[2017-04-21 23:33] LABS: MEAN CORPUSCULAR HEMOGLOBIN 29.5 pg (27.0-33.0); MEAN CORPUSCULAR VOLUME 92.2 fl (80.0-96.0); PLATELET COUNT, AUTOMATED 145 10^3/uL (150-450); RED CELL DISTRIBUTION WIDTH 13.8 % (11.5-14.5); WHITE BLOOD COUNT 22.2 10^3/uL (4.0-10.0)
[2017-04-21 23:44] LABS: INR 1.19
[2017-04-21 23:47] LABS: ADD MANUAL DIFFER YES; DIFF SLIDE NUMBER 158; POS COUNT POS FLAG; POSITIVE MORPH POS FLAG
[2017-04-21 23:59] LABS: ALBUMIN 2.5 GM/DL (3.2-5.2); ALBUMIN/GLOBULIN RATIO 0.57 (1.00-1.93); ALKALINE PHOSPHATASE 87 U/L (45-117); ALT/SGPT 15 U/L (12-78); ANION GAP 5 MEQ/L (8-16); AST/SGOT 10 U/L (7-37); BILIRUBIN,DIRECT 0.2 MG/DL (0.0-0.2); BLOOD UREA NITROGEN 18 MG/DL (7-18); CALCIUM LEVEL 8.5 MG/DL (8.8-10.2); CARBON DIOXIDE LEVEL 41 MEQ/L (21-32); CHLORIDE LEVEL 96 MEQ/L (98-107); CREATININE FOR GFR 1.05 MG/DL (0.70-1.30); GLOMERULAR FILTRATION RATE > 60.0 (>42); GLUCOSE, FASTING 100 MG/DL (83-110); SODIUM LEVEL 142 MEQ/L (136-145); TOTAL PROTEIN 6.9 GM/DL (6.4-8.2)
[2017-04-22 00:02] LABS: BILIRUBIN,TOTAL 0.6 MG/DL (0.2-1.0)
[2017-04-22 00:04] LABS: POTASSIUM SERUM 2.6 MEQ/L (3.5-5.1)
[2017-04-22] MEDS ORDERED: AMLO10TA2 PO (00:04)
[2017-04-22] MEDS ORDERED: POTASSIUM CHLORIDE 10 MEQ SR TABLET PO ONE ×4 (00:30→13:00)
[2017-04-22] MEDS ORDERED: ISOVUE-370 76% 100ML VIAL (Q9967) As Ordered ONE (00:51)
[2017-04-22 01:32] LABS: MICROSCOPIC INDICATED? NO (NO)
[2017-04-22] MEDS ORDERED: IPRATROPIUM 0.5MG/ALBUTEROL 2.5MG INH SOL UD 3ML (DUONEB)(J7620) NEB ONE (03:00)
--- NOTE | 2017-04-22 03:20 | REPUSA ---
CLINICAL HISTORY: Pleural effusions. TECHNIQUE: Multiple axial CT images were obtained through chest with IV contrast material. MPR velez l and sagittal sequences were obtained. COMMENTS: Comparison is made to the prior exam performed on 10/11/2016. Increased right pleural effusion which has become large. Interval appearance of a mild left pleural effusion. Increased basilar atelectatic airspace disease of the lower lobes more on the right. Interval appearance of the left lower lobe pulmonary consolidation. Interval appearance of a small sliding hiatal hernia. There is no evidence of pleural or parenchymal mass. There is no change in mild mediastinal lymphaden opathy. The heart and great vessels are within normal limits. The visualized portions of the liver are of uniform attenuation without mass or defect. There is no i ntra or extrahepatic biliary ductal dilatation. The spleen is unremarkable. The visualized pancreas i s of normal contour and attenuation characteristics. There is no evidence of adrenal mass. The visual ized portions of the kidneys present no abnormalities. The bony structures are free of lytic or blastic lesions. IMPRESSION: No change in mild mediastinal lymphadenopathy. Probably reactive. Increase in the size of bilateral pleural effusions. Interval appearance of large consolidation in the left lower lobe. Thank you for your kind referral of this patient.
[2017-04-22] MEDS ORDERED: DOCUSATE SODIUM 100 MG CAP PO PRN (03:45)
[2017-04-22] MEDS ORDERED: LACTULOSE 20 GM/30 ML SYRUP UD PO PRN (03:45)
[2017-04-22 04:31] LABS: MEAN CORPUSCULAR HEMOGLOBIN 29.5 pg (27.0-33.0); MEAN CORPUSCULAR HGB CONC 31.7 g/dl (32.0-36.5); MEAN CORPUSCULAR VOLUME 93.1 fl (80.0-96.0); PLATELET COUNT, AUTOMATED 139 10^3/uL (150-450); POS COUNT POS FLAG; POSITIVE MORPH POS FLAG; RED CELL DISTRIBUTION WIDTH 13.8 % (11.5-14.5); WHITE BLOOD COUNT 24.3 10^3/uL (4.0-10.0)
[2017-04-22 04:32] LABS: ADD MANUAL DIFFER YES; DIFF SLIDE NUMBER 71
[2017-04-22 04:54] LABS: HYPOCHROMASIA 1+; TOXIC GRANULATION 1+; TOXIC VACUOLATION 1+
[2017-04-22 04:59] LABS: ALBUMIN 2.4 GM/DL (3.2-5.2); ALBUMIN/GLOBULIN RATIO 0.55 (1.00-1.93); ALKALINE PHOSPHATASE 86 U/L (45-117); ALT/SGPT 14 U/L (12-78); ANION GAP 8 MEQ/L (8-16); AST/SGOT 14 U/L (7-37); BILIRUBIN,TOTAL 0.6 MG/DL (0.2-1.0); BLOOD UREA NITROGEN 20 MG/DL (7-18); CALCIUM LEVEL 8.3 MG/DL (8.8-10.2); CARBON DIOXIDE LEVEL 39 MEQ/L (21-32); CHLORIDE LEVEL 96 MEQ/L (98-107); CREATININE FOR GFR 1.18 MG/DL (0.70-1.30); GLOMERULAR FILTRATION RATE > 60.0 (>42); GLUCOSE, FASTING 177 MG/DL (83-110); MAGNESIUM LEVEL 1.7 MG/DL (1.8-2.4); SODIUM LEVEL 143 MEQ/L (136-145); TOTAL PROTEIN 6.8 GM/DL (6.4-8.2)
[2017-04-22 05:00] VITALS: BP 134/68
[2017-04-22 05:20] LABS: POTASSIUM SERUM 2.8 MEQ/L (3.5-5.1)
[2017-04-22] MEDS ORDERED: INFLUENZA VIRUS VACCINE HIGH DOSE 0.5 ML SYRINGE (90662) IM SCH (06:00)
[2017-04-22] MEDS ORDERED: KCL 10MEQ IN 100ML SWI (KRUN) 10 MEQ in APPROPRIATE DILUENT 1 EA IV ONE ×2 (06:00)
--- NOTE | 2017-04-22 07:32 | REP ---
Portable chest, 11:09 p.m., 04/21/2017, single AP view, patient sitting: Comparisons 10/15 2016. There is a large right pleural effusion. There is discoid atelectasis inferiorly in the left lung. Cardiac size cannot be assessed, the right cardiac margin is obscured. Mediastinum and bony thorax are unremarkable. Impression: Large right pleural effusion. Signed by Tyler Leone MD 04/22/2017 07:24 A
[2017-04-22] MEDS: IPRATROPIUM 0.5MG/ALBUTEROL 2.5MG INH SOL UD 3ML (DUONEB)(J7620) NEB SCH ×4 (07:51→21:01)
[2017-04-22] MEDS: ADVAIR HFA 115/21MCG INHALER INH SCH ×2 (07:51→21:01)
[2017-04-22 08:00] VITALS: BP 155/104
[2017-04-22] MEDS ORDERED: MEROPENEM INJ 1 GM in D5W MINI-BAG PLUS 100 ML IV SCH (08:00)
--- NOTE | 2017-04-22 08:00 | REP ---
Portable chest, 07:39 a.m., single AP view, the patient sitting: Comparison 04/21/2017. There is a large right pleural effusion that has increased slightly. There is increasing radiodensity inferiorly in the left lung, now compatible with an infiltrate. Cardiac size cannot be assessed, the right cardiac margin is obscured. Signed by Tyler Leone MD 04/22/2017 07:51 A
[2017-04-22] MEDS ORDERED: LevoFLOXacin IV 750 MG in APPROPRIATE DILUENT 1 EA IV SCH (08:45)
[2017-04-22] MEDS ORDERED: POTASSIUM CHLORIDE 10% LIQ 20 MEQ/15 ML UDC PO SCH (09:00)
[2017-04-22] MEDS ORDERED: POTASSIUM CHLORIDE 10 MEQ SR TABLET PO SCH (09:00)
[2017-04-22] MEDS ORDERED: APIXABAN 5 MG TAB (ELIQUIS) PO SCH (09:00)
[2017-04-22] MEDS ORDERED: FUROSEMIDE 40 MG/4 ML VIAL (J1940) IV SCH (09:00)
[2017-04-22] MEDS ORDERED: VANCOMYCIN HCL 1,000 MG, VIAL MATE ADAPTER 1 EACH in D5W 250 ML IV SCH (09:00)
[2017-04-22] MEDS ORDERED: cefTRIAXone SOD 1 GM in D5W 50 ML IV SCH (09:00)
[2017-04-22] MEDS ORDERED: predniSONE 10 MG TAB PO SCH (09:00)
[2017-04-22] MEDS: methylPREDNISolone INJ 40 MG/1 ML VIAL (J2920) IV SCH ×2 (09:12→16:34)
[2017-04-22] MEDS: ASPIRIN 81 MG ENTERIC TAB PO SCH (09:12)
[2017-04-22] MEDS: OMEPRAZOLE 20 MG CAP PO SCH (09:12)
[2017-04-22] MEDS: TAMSULOSIN 0.4 MG CAP PO SCH (09:13)
[2017-04-22] MEDS: amLODIPine 10 MG TAB PO SCH (09:13)
[2017-04-22] MEDS: POTASSIUM CHLORIDE 10 MEQ SR TABLET PO SCH ×2 (09:13→20:49)
[2017-04-22] MEDS: THIAMINE 100 MG TAB PO SCH (09:13)
[2017-04-22] MEDS: guaiFENesin ER 600 MG TAB PO SCH ×3 (09:13→20:49)
[2017-04-22] MEDS: hydrOXYzine 50 MG TAB PO SCH ×3 (09:14→20:49)
[2017-04-22] MEDS ORDERED: VANCOMYCIN HCL 1,000 MG, VIAL MATE ADAPTER 1 EACH in D5W 250 ML IV ONE ×2 (10:00→15:00)
--- NOTE | 2017-04-22 11:20 | IPNPDOC ---
Text Note Date of Service The patient was seen on 04/22/17. NOTE Subjective: Patient is a 76 year old male with a PMHx of COPD, CHF, HTN, GERD, chronic a fib, BPM, renal cyst, dyslipidemia presented with shortness of breath with consolidation on left side and large pleural effusion on right side. Patient stated his breathing has improved compared to last night. Admits to chill, denies fever. Admits to mild right sided chest pain. Denies any abdominal pain, nausea, vomiting, diarrhea, and constipation, problems with urine or blood in urine or stool. Objective: Vitals (See below) General: elderly male, lying in bed, in mild distress, AAOx3 HEENT: NC, AT, EOMI CVS: RRR, normal S1S2, difficult to auscultation due to increased AP diameter Lungs: Reduced breathing b/l, with more wheezing on left side, lung sounds on right, dullness to percussion on right Abdomen: Soft, ND, NT, no peritoneal signs Extremities: No edema clubbing or cyanosis Skin: warm and dry Neuro: CN 2- 12 intact, no focal neurological deficit Assessment and plan: Dyspnea (Cough and SOB) - likely multifactorial; 2/2 large right sided pleural effusion, possibly 2/2 acute COPD exacerbation, possible 2/2 community acquired pneumonia -Will obtain US guided thoracentesis with IR, pleural study has been ordered will assess exudative vs transudative fluid. -Mucinex - c/w Supplemental oxygen Acute hypoxic respiratory failure with left lower lobe pneumonia possible community acquired: -C/W IV antibiotics -DuoNebs -Advair Leukocytosis - likely 2/2 infectious process, possibly 2/2 reactive process ( Corticosteroids) - Presented with leukocytosis, has had worsening this morning, however received loading dose of steroids - Will check CRP and trend daily Hypokalemia - Continue repletion - Hold Lasix until potassium normalized History of COPD with chronic hypoxic respiratory failure on 4L O2 at home 24 hours a day -HOLD prednisone -Started IV steroid Cardiac risk - Continue ASA CHF -Lasix 40 mg IV BID (will hold for hypokalemia) -In/Outs monitored HTN - On Norvasc, Metoprlol succinate GERD -PPI Chronic Afib - Will hold Eliquis due to thoracentesis Renal cyst hx BPH with urinary retention, self straight cath at home 4 times a day -Will start amador Dyslipedemia -c/w statin Anxiety - Atarax Constipation: - Holding lactulose Insomnia: - continue Trazodone DVT prophylaxis: SCD/TEDS, holding Eliquis for procedure Fluid, electrolyte, nutrition: Low fat and low cholesterol diet, 2G Na, 1.5 fluid restriction GME ATTESTATION My preceptor for this patient encounter was physically present in the building during the encounter and was fully available. As needed, all aspects of the patient interview, examination, medical decision making process, and medical care plan development were reviewed and approved by the preceptor. Preceptor is aware and concurs with the plan as stated in the body of this note and will attest to such by his/her cosignature. ATTENDING NOTE I, Junaid Lima, have both independently examined this patient as well as reviewed the documentation. I have discussed in detail with the resident the findings and plan of treatment as documented in the residents documentation. I will continue to follow the patient and offer further guidance to the patients care as necessary during this hospital stay. VS,Abelbone, I+O VS, Fishbone, I+O Laboratory Tests 04/21/17 23:25 Red Blood Count 3.46 L, Mean Corpuscular Volume 92.2, Mean Corpuscular Hemoglobin 29.5, Mean Corpuscular Hemoglobin Concent 32.0, Red Cell Distribution Width 13.8 04/22/17 04:22 Red Blood Count 3.46 L, Mean Corpuscular Volume 93.1, Mean Corpuscular Hemoglobin 29.5, Mean Corpuscular Hemoglobin Concent 31.7 L, Red Cell Distribution Width 13.8, Calcium Level 8.3 L, Aspartate Amino Transf (AST/SGOT) 14, Alanine Aminotransferase (ALT/SGPT) 14, Total Creatine Kinase 240 #, Alkaline Phosphatase 86, Total Bilirubin 0.6, Total Protein 6.8, Albumin 2.4 L Vital Signs Date Time Temp Pulse Resp B/P (MAP) Pulse Ox O2 Delivery O2 Flow Rate FiO2 04/22/17 09:13 84 155/104 04/22/17 05:00 Venturi Mask 15.0 50 04/22/17 05:00 97.8 24 99 I&O- Last 24 Hours up to 6 AM 04/23/17 06:00 Intake Total 480 ml Output Total 175 ml Balance 305 ml KRISTEN GRAVES DO Apr 22, 2017 11:20 JUNAID LIMA MD Apr 22, 2017 12:00
[2017-04-22 11:33] LABS: POTASSIUM SERUM 3.1 MEQ/L (3.5-5.1)
[2017-04-22 12:00] VITALS: BP 143/62
[2017-04-22] MEDS: VANCOMYCIN HCL 1,000 MG, VIAL MATE ADAPTER 1 EACH in D5W 250 ML IV SCH (13:49)
--- NOTE | 2017-04-22 14:08 | REP ---
POST THORACENTESIS CHEST: Two views of the chest are performed. Comparison is made with the prior exam of the same day. The patient had right thoracentesis. There is no pneumothorax. There is decreased right pleural fluid with residual pleural fluid remaining. There is some adjacent atelectasis/infiltrate in the right lung base. The left basilar infiltrate is unchanged. Signed by Tyler Baca MD 04/22/2017 02:52 P
[2017-04-22 14:19] LABS: BF MONONUCLEAR CELL % 3.9 % (0-0); BF POLYMORPHONUCLEAR CELL % 96.1 % (0-0); RBC BODY FLUID < 2000 10^3/uL (<2000)
[2017-04-22 14:23] LABS: BF DIFF IF INDICATED? YES (NO); WBC BODY FLUID 14676 /uL (0-10)
[2017-04-22 14:37] LABS: LDH, BODY FLUID 229 U/L (NOT ESTABLISHED); TOTAL PROTEIN, BODY FLUID 3.1 G/DL (NOT ESTABLISHED)
[2017-04-22] MEDS ORDERED: PREPARATION H OINTMENT (HEMORRHOID) PR PRN (14:45)
--- NOTE | 2017-04-22 15:24 | PHACANCOPD ---
PHARMACY VANCOMYCIN DOSING Pt Demographics Demographics Patient Age:76 , Weight:101.000 , Gender: male Adjusted Body Weight Date: 04/22/17, Adjusted Body Weight: Kg Events Past 24 Hours Events Past 24 Hours: YES: Elevation in WBC, Pending Diagnostics Vancomycin Vancomycin indication: MRSA coverage / Bacteremia Vancomycin Target Ranges: 15-20 mcg/ml Vancomycin Load Y/N: Yes Load Dose Date Time Vancomycin Load Dose: 2g Date: 04/22/17 Time: 1400 Vancomycin Dose Date: 04/22/17. Current Vancomycin Dose: Intermittent Dosing?: No Labs Micro Microbiology 04/21/17 Blood Culture - Preliminary, Resulted 04/21/17 Blood Culture - Preliminary, Resulted 04/22/17 Acid Fast Stain, Received Pending 04/22/17 Mycobacterial Culture, Received Pending 04/22/17 Fungal Smear, Received Pending 04/22/17 Fungal Culture, Received Pending 04/22/17 Gram Stain, Received Pending 04/22/17 Body Fluid Culture, Received Pending 04/22/17 Anaerobic Culture, Received Pending 04/22/17 Urine Culture, Received Pending Creatinine Clearance Date:04/22/17. Estimated Creatinine Clearance: [~60 ml/min]. Pending Labs Vancomycin trough scheduled 04/24/17 @1300 Assessment and Plan Maintaining Current Dose?: Yes Reason for dose change: No Dose Change Pharmacist Note Pharmacist Note Date: 04/22/17. Pharmacist note: Day #1 vancomycin initiated with a 2g loading dose, followed by a maintenance regimen of 1g IV Q12H for MRSA coverage/ bacteremia - aiming for a goal trough of 15-20mcg/ml. A vancomycin trough has been scheduled for 04/24/17 @1300. We will continue to monitor and make dose adjustments as needed. [facility] Apr 22, 2017 15:24
[2017-04-22 16:00] VITALS: BP 126/60
--- NOTE | 2017-04-22 17:12 | ECHO ---
DATE OF STUDY: 04/22/2017 REFERRING PHYSICIAN: Dariana Hoover and Junaid Navarrete MD INDICATIONS: Congestive heart failure (CHF). Patient measures 188 cm and weighs 101 kg. DIMENSIONS: IVS 1.2 LV 5.8 LVPW 1.2 LA 5.4 Aorta 3.6 FINDINGS: This study is of very limited technical quality. The patient is known to have chronic obstructive pulmonary disease (COPD) and also likely contributing is his body habitus. Left ventricle is mildly dilated. It appears grossly normally contractile on limited views. Mild left ventricular hypertrophy (LVH) is noted. Right ventricle was poorly seen, but appears grossly normal. Both atria appear severely enlarged. Aortic valve is sclerotic. The visualization was very poor and I cannot comment on the details of its anatomy. Mitral valve also exhibits degenerative abnormalities. There are some mitral annular calcifications, but leaflet mobility seems preserved. Tricuspid valve appears normal. Pulmonic valve was not visualized. No pericardial effusion is noted. Prominent pericardial fat pad is present. Inferior vena cava is dilated and there is no appreciable collapse with respiration indicative of likely very high central venous pressure. Aortic root is normal. Aortic arch and abdominal aorta were not well seen. Doppler interrogation of aortic valve reveals no stenosis or insufficiency. There is also no significant mitral valve disease. There is mild tricuspid insufficiency. Quality of tricuspid regurgitation (TR) jet though was not good and consequently I do not believe I can adequately estimate pulmonary artery pressure. Evaluation of diastolic function is inconclusive. The patient has irregular heart rhythm, I suspect atrial fibrillation. CONCLUSION: 1. Very limited echocardiogram. 2. Mildly dilated left ventricle with mild left ventricular hypertrophy and overall likely normal LV systolic function. 3. No significant aortic, mitral or tricuspid valve disease. 4. Likely very high central venous pressure. 5. Unable to estimate pulmonary artery pressure. 6. Prominent pericardial fat pad. COMMENTS: Subacute bacterial endocarditis (SBE) prophylaxis is not recommended. [facility]
--- NOTE | 2017-04-22 17:54 | ECGEPIP ---
Stationary ECG Study [facility] - ED Test Date: 2017-04-21 Pat Name: JESSICA CRUZ Department: Room: [place] [address] Gender: M Robotics Technician: FournierB: 1940 Requested By: SHEFALI SMALL Order Number: [id number] Reading MD: Jairon Bates Measurements Intervals [place] Rate: 100 P: WI: 0 QRS: 25 QRSD: 86 T: 58 QT: 361 QTc: 467 Interpretive Statements ATRIAL FIBRILLATION WITH RAPID VENTRICULAR RESPONSE NONSPECIFIC ST & T-WAVE ABNORMALITY POSSIBLE PRIOR INFERIOR INFARCT SIMILAR TO 10/11/16 Electronically Signed On 04-22-2017 17:54:13 EDT by Jairon Bates
--- NOTE | 2017-04-22 18:59 | REP ---
Portable chest, single AP view, six p.m.: Comparisons are studies performed earlier today. There is a large right pleural effusion, slightly decreased in size from 07:39 a.m. earlier today. There is increased radiodensity inferiorly on the left compatible with effusion and / or infiltrate. There is cardiomegaly, unchanged. There is no pneumothorax. Signed by Tyler Leone MD 04/22/2017 06:51 P
[2017-04-22 20:00] VITALS: BP 125/60
[2017-04-22] MEDS: POLYVINYL ALCOHOL OPHTH SOLN 15 ML(LIQUITEARS) OU PRN (20:48)
[2017-04-22] MEDS: SIMVASTATIN 20 MG TAB PO SCH (20:49)
[2017-04-22] MEDS: traZODone 50 MG TAB PO SCH (20:49)
[2017-04-22] MEDS: ALPRAZolam 0.25 MG TAB PO SCH (20:50)
[2017-04-22] MEDS: METOPROLOL SUCC *XL* 25MG TAB (TopROL *XL*) PO SCH (20:50)
[2017-04-22] MEDS ORDERED: AZITHROMYCIN INJ 500 MG, VIAL MATE ADAPTER 1 EACH in D5W 250 ML IV SCH (21:00)
[2017-04-22] MEDS ORDERED: AZITHROMYCIN INJ 500 MG, VIAL MATE ADAPTER 1 EACH in D5W 250 ML IV ONE (21:00)
[2017-04-23] VITALS (7 sets, daily range): BP systolic 110–136; BP diastolic 56–76; O2SAT 95
[2017-04-23] MEDS: VANCOMYCIN HCL 1,000 MG, VIAL MATE ADAPTER 1 EACH in D5W 250 ML IV SCH ×2 (01:34→15:02)
[2017-04-23] MEDS: methylPREDNISolone INJ 40 MG/1 ML VIAL (J2920) IV SCH ×2 (01:34→08:28)
[2017-04-23 04:39] LABS: BASO % 0.1 % (0.0-1.0); IMMATURE GRANULOCYTE % 2.2 % (0-0); LYMPH # 0.3 10^3/uL (1.5-4.5); LYMPH % 2.3 % (24.0-44.0); MEAN CORPUSCULAR HEMOGLOBIN 29.1 pg (27.0-33.0); MEAN CORPUSCULAR HGB CONC 31.4 g/dl (32.0-36.5); MEAN CORPUSCULAR VOLUME 92.8 fl (80.0-96.0); MONO # 0.3 10^3/uL (0.0-0.8); MONO % 2.2 % (0.0-5.0); NEUTROPHILS # 12.9 10^3/uL (1.8-7.7); NEUTROPHILS % 93.2 % (36.0-66.0); PLATELET COUNT, AUTOMATED 124 10^3/uL (150-450); RED CELL DISTRIBUTION WIDTH 13.6 % (11.5-14.5); WHITE BLOOD COUNT 13.9 10^3/uL (4.0-10.0)
[2017-04-23 04:55] LABS: ALBUMIN 2.2 GM/DL (3.2-5.2); ALBUMIN/GLOBULIN RATIO 0.48 (1.00-1.93); ALKALINE PHOSPHATASE 86 U/L (45-117); ALT/SGPT 15 U/L (12-78); ANION GAP 4 MEQ/L (8-16); AST/SGOT 16 U/L (7-37); BILIRUBIN,TOTAL 0.4 MG/DL (0.2-1.0); BLOOD UREA NITROGEN 23 MG/DL (7-18); CALCIUM LEVEL 8.9 MG/DL (8.8-10.2); CARBON DIOXIDE LEVEL 39 MEQ/L (21-32); CHLORIDE LEVEL 100 MEQ/L (98-107); CREATININE FOR GFR 0.98 MG/DL (0.70-1.30); GLOMERULAR FILTRATION RATE > 60.0 (>42); GLUCOSE, FASTING 164 MG/DL (83-110); MAGNESIUM LEVEL 2.2 MG/DL (1.8-2.4); POTASSIUM SERUM 3.5 MEQ/L (3.5-5.1); SODIUM LEVEL 143 MEQ/L (136-145); TOTAL PROTEIN 6.8 GM/DL (6.4-8.2)
[2017-04-23] MEDS: ADVAIR HFA 115/21MCG INHALER INH SCH ×2 (07:09→19:46)
[2017-04-23] MEDS: IPRATROPIUM 0.5MG/ALBUTEROL 2.5MG INH SOL UD 3ML (DUONEB)(J7620) NEB SCH ×5 (07:10→21:27)
[2017-04-23] MEDS: OMEPRAZOLE 20 MG CAP PO SCH (08:28)
[2017-04-23] MEDS: ASPIRIN 81 MG ENTERIC TAB PO SCH (08:28)
[2017-04-23] MEDS: guaiFENesin ER 600 MG TAB PO SCH ×3 (08:29→20:44)
[2017-04-23] MEDS: TAMSULOSIN 0.4 MG CAP PO SCH (08:29)
[2017-04-23] MEDS: amLODIPine 10 MG TAB PO SCH (08:29)
[2017-04-23] MEDS: THIAMINE 100 MG TAB PO SCH (08:29)
[2017-04-23] MEDS ORDERED: cefTRIAXone SOD 2 GM in D5W 50 ML IV SCH (08:30)
[2017-04-23] MEDS: POTASSIUM CHLORIDE 10 MEQ SR TABLET PO SCH ×2 (08:33→20:45)
--- NOTE | 2017-04-23 08:48 | REP ---
RIGHT THORACENTESIS: The procedure was performed by MISHA Reid under the direct supervision of Dr. Baca. The procedure along with its risks, benefits, and complications were discussed with the patient prior to the examination. Informed consent was obtained both verbally and written. The patient was identified in the ultrasound suite and placed in a seated position. The right lung was interrogated with ultrasound. An appropriate site was chosen for the needle entry and this area was marked, prepped, and draped in the usual sterile fashion. A procedural time-out was performed to ensure that the correct patient site and procedure were being performed. Local infiltrative anesthesia was achieved with 1% lidocaine. A 8 [place] TURKEL Catheter was advanced through the ribs and into the pleural cavity under continuous negative pressure until serous fluid was aspirated. The needle was removed and the catheter was advanced. Approximately 2150 mL of dark yellow fluid were aspirated. The catheter was then removed. Hemostasis was achieved and a soft dressing was applied to the entry site. Post procedural imaging revealed no immediate complications. The patient tolerated the procedure well. IMPRESSION: Uncomplicated right thoracentesis yielding 2150 mL of dark yellow fluid. Reviewed by MISHA Donovan 04/23/2017 08:50 AEdited and Signed by Tyler Baca MD 04/23/2017 05:19 P
[2017-04-23] MEDS ORDERED: AZITHROMYCIN INJ 500 MG, VIAL MATE ADAPTER 1 EACH in D5W 250 ML IV SCH (10:00)
[2017-04-23] MEDS: cefTRIAXone SOD 2 GM in D5W 50 ML IV SCH (10:04)
[2017-04-23] MEDS: APIXABAN 5 MG TAB (ELIQUIS) PO SCH ×2 (10:04→20:44)
[2017-04-23] MEDS: hydrOXYzine 50 MG TAB PO SCH ×3 (10:04→20:44)
--- NOTE | 2017-04-23 11:07 | IPNPDOC ---
Text Note Date of Service The patient was seen on 04/23/17. NOTE Subjective: Patient is a 76 year old male with a PMHx of COPD, CHF, HTN, GERD, chronic a fib, BPH, renal cyst, dyslipidemia presented with shortness of breath with consolidation on left side and large pleural effusion on right side. Patient seen and examined at bedside. He is feeling better today. Denies fever/ chill, chest pain, sob. Denies any abdominal pain, nausea, vomiting, diarrhea, and constipation, problems with urine or blood in urine or stool. US guided thoracentesis was done yesterday drained more than 2 L of fluid. Denies any other current new complaints. Objective: Vitals (See below) General: elderly male, lying in bed, in mild distress, AAOx3 HEENT: NC, AT, EOMI CVS: RRR, normal S1S2, difficult to auscultation due to increased AP diameter Lungs: Reduced breathing b/l right side greater than left side Abdomen: Soft, ND, NT, no peritoneal signs Extremities: No edema clubbing or cyanosis Skin: warm and dry Neuro: CN 2- 12 intact, no focal neurological deficit Assessment and plan: Dyspnea (Cough and SOB) - likely multifactorial; 2/2 large right sided pleural effusion, possibly 2/2 acute COPD exacerbation, possible 2/2 community acquired pneumonia -Will obtain US guided thoracentesis with IR, pleural study using light's criteria shows it was exudative, some possibilities are malignancy, lung abscess. - Pleural fluid culture and cytology pending. - Mucinex - c/w Supplemental oxygen Acute hypoxic respiratory failure with left lower lobe pneumonia possible community acquired: -C/W IV antibiotics, Vanco 1 g q 12 h /Rocephin 2 g q 24 h day 2 -DuoNebs -Advair Leukocytosis - likely 2/2 infectious process, possibly 2/2 reactive process ( Corticosteroids) - Presented with leukocytosis, has had worsening this morning, however received loading dose of steroids - Will check CRP and trend daily Hypokalemia - Continue repletion - Hold Lasix until potassium normalized History of COPD with chronic hypoxic respiratory failure on 4L O2 at home 24 hours a day -HOLD prednisone -Started IV steroid Solumedrol, tapering down Cardiac risk - Continue ASA CHF - HOLD Lasix 40 mg IV BID (will hold for hypokalemia) -In/Outs monitored - Echo 04/22/17 showed normal LV systolic function, very high central venous pressure HTN - On Norvasc 10 mg daily, Metoprol succinate 25 mg qhs GERD -PPI Chronic Afib - Eliquis was on hold due to thoracentesis - Resumed Eliquis on 04/23/17 Renal cyst hx BPH with urinary retention, self straight cath at home 4 times a day -Will start amador Dyslipedemia -c/w statin Anxiety - Atarax Constipation: - Holding lactulose Insomnia: - continue Trazodone DVT prophylaxis: SCD/TEDS, and Eliquis Fluid, electrolyte, nutrition: Low fat and low cholesterol diet, 2G Na, 2 fluid restriction Disposition: Improving, possible downgrade. Will monitor reaccumulation of pleural fluid. Physical therapy has been consulted to assess condition for discharge. GME ATTESTATION My preceptor for this patient encounter was physically present in the building during the encounter and was fully available. As needed, all aspects of the patient interview, examination, medical decision making process, and medical care plan development were reviewed and approved by the preceptor. Preceptor is aware and concurs with the plan as stated in the body of this note and will attest to such by his/her cosignature. VS,Fishbone, I+O VS, Fishbone, I+O Laboratory Tests 04/22/17 10:26 Total Creatine Kinase 236 04/23/17 04:07 Red Blood Count 3.47 L, Mean Corpuscular Volume 92.8, Mean Corpuscular Hemoglobin 29.1, Mean Corpuscular Hemoglobin Concent 31.4 L, Red Cell Distribution Width 13.6, Neutrophils (%) (Auto) 93.2 H, Lymphocytes (%) (Auto) 2.3 L, Monocytes (%) (Auto) 2.2, Eosinophils (%) (Auto) 0.0, Basophils (%) (Auto ) 0.1, Neutrophils # (Auto) 12.9 H, Lymphocytes # (Auto) 0.3 L, Monocytes # ( Auto) 0.3, Eosinophils # (Auto) 0.0, Basophils # (Auto) 0.0, Calcium Level 8.9, Aspartate Amino Transf (AST/SGOT) 16, Alanine Aminotransferase (ALT/SGPT) 15, Alkaline Phosphatase 86, Total Bilirubin 0.4, Total Protein 6.8, Albumin 2.2 L Vital Signs Date Time Temp Pulse Resp B/P (MAP) Pulse Ox O2 Delivery O2 Flow Rate FiO2 04/23/17 04:00 97.2 73 26 121/59 (79) 93 Nasal Cannula 4.0 04/22/17 05:00 50 KRISTEN GRAVES DO Apr 23, 2017 08:35
--- NOTE | 2017-04-23 11:32 | REP ---
CHEST, TWO VIEWS: Two views of the chest are performed and compared to prior studies of 04/22/2017. Right pleural effusion and adjacent infiltrates/atelectasis are unchanged. There is a small left effusion with adjacent atelectasis/infiltrate also unchanged. There is cardiomegaly. The mediastinal silhouette is unchanged. There are degenerative changes of the spine. IMPRESSION: Stable exam. Signed by Tyler Baca MD 04/23/2017 01:17 P
[2017-04-23] MEDS: MIRALAX *UNIT DOSE* 17GM PACKET PO SCH (15:01)
--- NOTE | 2017-04-23 15:49 | HPE ---
DATE OF ADMISSION: 04/22/2017 CHIEF COMPLAINT: Shortness of breath. This is a 76-year-old male with a history of chronic obstructive pulmonary disease (COPD), congestive heart failure (CHF), previous pleural effusion requiring thoracentesis, hypertension, gastroesophageal reflux disease (GERD), who states that for the last week his breathing has become increasingly worse. Today, he felt he could not move any air. He came by ambulance on continuous positive airway pressure (CPAP) to the emergency room. Upon arrival, temperature was 101.6, pulse was 106, respirations were 28, blood pressure was 159/68. He has been on CPAP. He was given a DuoNeb treatment, aspirin, Tylenol for his temperature, IV Solu-Medrol, 1.5 grams of Rocephin, potassium, with some improvement in his breathing. Chest x-ray was done. CT of the chest was done, which showed no change in mild mediastinal lymphadenopathy, probably reactive. Compared to the prior 10/11/2016, increase in size of bilateral pleural effusions, interval appearance of large consolidation in the left lower lobe. Chest x-ray showed large right pleural effusion. In the emergency room, his respiratory status improved. He was changed to a Venturi mask at 50%. Assessment was done and patient will be admitted for bilateral pleural effusion, especially large right pleural effusion, left lower lobe consolidation, shortness of breath, positive urinary tract infection (UTI). He self-catheterizes. Nava was inserted. He will be admitted to the progressive care unit (PCU) to the service of Dr. Navarrete. ALLERGIES: ANGIOTENSIN-CONVERTING ENZYME (MAKENNA) INHIBITORS, CIPROFLOXACIN, FLUCONAZOLE, IBUPROFEN, LISINOPRIL, PENICILLIN, SULFA DRUGS, and LATEX. PRIMARY CARE PROVIDER: Mary Fish MD [employer]PEDITION[employer] FIGHTING [employer]HICLE CREWMAN: Kevin Moore MD SOCIAL HISTORY: Lives with his daughter. Former smoker, smoked one and a half packs a day for about 50 years, he quit over 1 year ago. Alcohol: He drank at least 15 beers a day since he was a teenager. He states the last few weeks he switched to non-alcoholic (NA) but was still drinking at least 3-4 a day. I discussed with him that he should stop this, he states he has already decided to. PAST MEDICAL HISTORY: History of right pleural effusion, which he had 1500 mL removed in September, history of COPD, CHF. hypertension, GERD, atrial fibrillation, renal cyst, BPH, dyslipidemia. SURGICAL HISTORY: Bladder suspension and ureteral procedure. REVIEW OF SYSTEMS: No complaint of headache. No blurred or double vision. Complains of fever and chills. No tinnitus. No hoarseness, no difficulty swallowing. No lightheadedness. No vertigo. BREASTS: No masses. CARDIOVASCULAR: Chest pressure, cough, shortness of breath, edema. RESPIRATORY: Increasing shortness of breath, cough, orthopnea, wheeze. No hemoptysis. GASTROINTESTINAL (GI): History of GERD, stable. No nausea, vomiting, or diarrhea. No hematochezia. No melena. No complaints of abdominal pain. GENITOURINARY (): He self-catheterizes. Nava has been placed. Urine shows positive nitrites. Culture has been sent. MUSCULOSKELETAL: No joint redness or swelling. ENDOCRINE: No polyuria, polydipsia, or polyphagia. HEMATOLOGICAL: No history of anemia. NEUROLOGICAL: No history of seizures. PSYCHOLOGICAL: No suicidal ideation. Has history of anxiety, especially if short of breath. HOME MEDICATIONS: - Ventolin HFA two puffs by mouth every 4 hours as needed for shortness of breath - DuoNeb one vial every 4 hours as needed for shortness of breath - Lasix 40 mg by mouth daily, which I will hold, when potassium corrected will give IV Lasix - multivitamin one daily - Preparation H as needed for hemorrhoids - Refresh Tears one drop four times a day as needed for dry eyes - Spiriva one inhalation every morning - alprazolam 0.5 mg by mouth nightly - amlodipine 10 mg by mouth daily - Eliquis 5 mg by mouth twice a day - aspirin 81 mg by mouth daily - Colace 100 mg by mouth twice a day as needed for constipation - Mucinex 600 mg by mouth three times a day - hydroxyzine 50 mg by mouth three times a day - lactulose 15 mL by mouth twice a day as needed for constipation - metoprolol ER 25 mg by mouth nightly - omeprazole 20 mg by mouth daily - Advair 115-21 two puffs by mouth twice a day - simvastatin 20 mg by mouth nightly - Flomax 0.8 mg by mouth daily - thiamine 100 mg by mouth daily - trazodone 50 mg by mouth nightly FAMILY HISTORY: Noncontributory. PHYSICAL EXAMINATION: 76-year-old cooperative male, mildly short of breath. Height 74 inches, weight 101 kg, body mass index (BMI) 28.6. The patient is alert and oriented times three. Pupils equal and reactive to light. Extraocular movements are intact. Cornea and sclerae clear. Conjunctivae is normal. No facial asymmetry. Buccal mucosa dry. Tongue is midline. NECK: Supple without lymphadenopathy. No thyromegaly, no goiter. Carotid 2+ without bruit. Jugular venous pressure 2-4 at 60 degrees. CHEST: Decreased breath sounds. No wheeze or retraction. HEART: Regular. ABDOMEN: Benign. Bowel sounds positive. GENITOURINARY/RECTAL: Not done. EXTREMITIES: Show +1 bilateral lower extremity edema. Peripheral pulses equal and palpable bilaterally. SKIN: Warm and dry. IMPRESSION/PLAN: The patient will be admitted to the service of Dr. Navarrete to the progressive care unit (PCU). Large right pleural effusion. Congestive heart failure. Will give IV Lasix when potassium corrected. Hypokalemia. Potassium (K) run and by mouth Elixir given. Recheck potassium. Pneumonia. Consolidation left lobe. IV antibiotics. Sputum culture. DuoNeb treatments. Chronic obstructive pulmonary disease (COPD). DuoNeb treatments. History of atrial fibrillation. Continue Eliquis. EKG showed atrial fibrillation with rapid ventricular response of 100. History of BPH. History of dyslipidemia. Continue statin. Self-catheterization. Nava has been placed. Urine culture sent. Urinalysis positive for nitrites. Will give IV antibiotics. Patient will be an inpatient admitted to the medical floor service of Dr. Navarrete. Followup on effusion. Will probably need thoracentesis again. Urinary tract infection (UTI). Followup on culture.
--- NOTE | 2017-04-23 18:53 | ECGEPIP ---
Stationary ECG Study [facility] Test Date: 2017-04-23 Pat Name: JESSICA CRUZ Department: Room: [place] [address] Gender: M Railroad Yard Worker: LEONEL : 1940 Requested By: ANJUM LIMA Order Number: [id number] Reading MD: Edmundo Nails Measurements Intervals [place] Rate: 73 P: SC: 0 QRS: 63 QRSD: 105 T: 32 QT: 406 QTc: 448 Interpretive Statements ATRIAL FIBRILLATION NONSPECIFIC ST & T-WAVE ABNORMALITY Rate decreased from tracing done 04-21-17 Electronically Signed On 04-23-2017 18:52:50 EDT by Edmundo Nails
[2017-04-23] MEDS: SIMVASTATIN 20 MG TAB PO SCH (20:42)
[2017-04-23] MEDS: ALPRAZolam 0.25 MG TAB PO SCH (20:42)
[2017-04-23] MEDS: METOPROLOL SUCC *XL* 25MG TAB (TopROL *XL*) PO SCH (20:44)
[2017-04-23] MEDS: traZODone 50 MG TAB PO SCH (20:44)
[2017-04-23] MEDS: methylPREDNISolone INJ 125 MG/2 ML VIAL (J2930) IV SCH (20:46)
[2017-04-24] VITALS (7 sets, daily range): BP systolic 112–145; BP diastolic 58–72
[2017-04-24] MEDS: VANCOMYCIN HCL 1,000 MG, VIAL MATE ADAPTER 1 EACH in D5W 250 ML IV SCH (01:43)
[2017-04-24 04:46] LABS: BASO % 0.1 % (0.0-1.0); IMMATURE GRANULOCYTE % 1.4 % (0-0); LYMPH # 0.3 10^3/uL (1.5-4.5); LYMPH % 3.4 % (24.0-44.0); MEAN CORPUSCULAR HEMOGLOBIN 29.3 pg (27.0-33.0); MEAN CORPUSCULAR HGB CONC 31.1 g/dl (32.0-36.5); MEAN CORPUSCULAR VOLUME 94.3 fl (80.0-96.0); MONO # 0.1 10^3/uL (0.0-0.8); MONO % 1.6 % (0.0-5.0); NEUTROPHILS # 7.1 10^3/uL (1.8-7.7); NEUTROPHILS % 93.5 % (36.0-66.0); PLATELET COUNT, AUTOMATED 121 10^3/uL (150-450); RED CELL DISTRIBUTION WIDTH 13.7 % (11.5-14.5); WHITE BLOOD COUNT 7.6 10^3/uL (4.0-10.0)
[2017-04-24 05:13] LABS: ALBUMIN 2.1 GM/DL (3.2-5.2); ALBUMIN/GLOBULIN RATIO 0.48 (1.00-1.93); ALKALINE PHOSPHATASE 80 U/L (45-117); ALT/SGPT 19 U/L (12-78); ANION GAP 5 MEQ/L (8-16); AST/SGOT 19 U/L (7-37); BILIRUBIN,TOTAL 0.3 MG/DL (0.2-1.0); BLOOD UREA NITROGEN 28 MG/DL (7-18); CALCIUM LEVEL 8.8 MG/DL (8.8-10.2); CARBON DIOXIDE LEVEL 36 MEQ/L (21-32); CHLORIDE LEVEL 99 MEQ/L (98-107); GLOMERULAR FILTRATION RATE > 60.0 (>42); GLUCOSE, FASTING 196 MG/DL (83-110); MAGNESIUM LEVEL 2.4 MG/DL (1.8-2.4); POTASSIUM SERUM 4.1 MEQ/L (3.5-5.1); SODIUM LEVEL 140 MEQ/L (136-145); TOTAL PROTEIN 6.5 GM/DL (6.4-8.2)
[2017-04-24 05:31] LABS: POSITIVE DIFF POS FLAG
[2017-04-24] MEDS: POLYVINYL ALCOHOL OPHTH SOLN 15 ML(LIQUITEARS) OU PRN ×3 (06:15→20:39)
[2017-04-24] MEDS: methylPREDNISolone INJ 125 MG/2 ML VIAL (J2930) IV SCH ×2 (08:31→16:07)
[2017-04-24] MEDS: guaiFENesin ER 600 MG TAB PO SCH ×3 (08:32→20:36)
[2017-04-24] MEDS: hydrOXYzine 50 MG TAB PO SCH ×3 (08:32→20:36)
[2017-04-24] MEDS: THIAMINE 100 MG TAB PO SCH (08:32)
[2017-04-24] MEDS: cefTRIAXone SOD 2 GM in D5W 50 ML IV SCH (08:32)
[2017-04-24] MEDS: OMEPRAZOLE 20 MG CAP PO SCH (08:32)
[2017-04-24] MEDS: APIXABAN 5 MG TAB (ELIQUIS) PO SCH ×2 (08:32→20:38)
[2017-04-24] MEDS: TAMSULOSIN 0.4 MG CAP PO SCH (08:32)
[2017-04-24] MEDS: ASPIRIN 81 MG ENTERIC TAB PO SCH (08:32)
[2017-04-24] MEDS: amLODIPine 10 MG TAB PO SCH (08:33)
[2017-04-24] MEDS: MIRALAX *UNIT DOSE* 17GM PACKET PO SCH (08:33)
[2017-04-24] MEDS: ADVAIR HFA 115/21MCG INHALER INH SCH ×2 (08:37→20:02)
[2017-04-24] MEDS: IPRATROPIUM 0.5MG/ALBUTEROL 2.5MG INH SOL UD 3ML (DUONEB)(J7620) NEB SCH ×3 (10:36→20:00)
[2017-04-24] MEDS ORDERED: FUROSEMIDE 40 MG TAB PO ONE (12:45)
--- NOTE | 2017-04-24 12:48 | IPNPDOC ---
Text Note Date of Service The patient was seen on 04/24/17. NOTE Subjective: Patient is a 76 year old male with a PMHx of COPD, CHF, HTN, GERD, chronic a fib, BPH, renal cyst, dyslipidemia presented with shortness of breath with consolidation on left side and large pleural effusion on right side. Patient seen and examined at bedside. He is feeling better today again. Denies fever/chill, chest pain, sob. Denies any abdominal pain, nausea, vomiting, diarrhea, and constipation, problems with urine or blood in urine or stool. Denies any other current new complaints. Objective: Vitals (See below) General: elderly male, lying in bed, in mild distress, AAOx3 HEENT: NC, AT, EOMI CVS: RRR, normal S1S2, difficult to auscultation due to increased AP diameter Lungs: Reduced breathing b/l, with rubs and rhonchi, slightly worse than day before Abdomen: Soft, ND, NT, no peritoneal signs Extremities: No edema clubbing or cyanosis Skin: warm and dry Neuro: CN 2- 12 intact, no focal neurological deficit Assessment and plan: Dyspnea (Cough and SOB) - likely multifactorial; 2/2 large right sided pleural effusion, possibly 2/2 acute COPD exacerbation, possible 2/2 community acquired pneumonia -Will obtain US guided thoracentesis with IR, pleural study using light's criteria shows it was exudative, some possibilities are malignancy, lung abscess. - Pleural fluid culture and cytology pending. - Mucinex - c/w Supplemental oxygen Acute hypoxic respiratory failure with left lower lobe pneumonia possible community acquired: - Blood cx came back 04/24/17 Strep Pneumo s Rocephin - D/C Vanco 04/24/17 - C/W IV antibiotics, Rocephin 2 g q 24 h day 2 - DuoNebs - Advair - chest PT 04/24/17 Leukocytosis - likely 2/2 infectious process, possibly 2/2 reactive process ( Corticosteroids) - Presented with leukocytosis improving - CRP also improving Hypokalemia - Resolved - Started trail of home Lasix History of COPD with chronic hypoxic respiratory failure on 4L O2 at home 24 hours a day -HOLD prednisone -Started IV steroid Solumedrol, increased to 40 mg IV q8H due to worsening lung sound Cardiac risk - Continue ASA CHF - Was holding Lasix 40 mg IV BID (will hold for hypokalemia) - Restarted Lasix 40 PO once today -In/Outs monitored - Echo 04/22/17 showed normal LV systolic function, very high central venous pressure HTN - On Norvasc 10 mg daily, Metoprol succinate 25 mg qhs GERD -PPI Chronic Afib - Eliquis was on hold due to thoracentesis - Resumed Eliquis on 04/23/17 Renal cyst hx BPH with urinary retention, self straight cath at home 4 times a day -Will start amador Dyslipedemia -c/w statin Anxiety - Atarax Constipation: - Holding lactulose Insomnia: - continue Trazodone DVT prophylaxis: SCD/TEDS, and Eliquis Fluid, electrolyte, nutrition: Low fat and low cholesterol diet, 2G Na, 2 fluid restriction Disposition: Improving, possible downgrade. Will monitor reaccumulation of pleural fluid. Physical therapy has been consulted to assess condition for discharge. GME ATTESTATION My preceptor for this patient encounter was physically present in the building during the encounter and was fully available. As needed, all aspects of the patient interview, examination, medical decision making process, and medical care plan development were reviewed and approved by the preceptor. Preceptor is aware and concurs with the plan as stated in the body of this note and will attest to such by his/her cosignature. VS,Stevie, I+O VS, Stevie, I+O Laboratory Tests 04/24/17 04:34 Red Blood Count 3.14 L, Mean Corpuscular Volume 94.3, Mean Corpuscular Hemoglobin 29.3, Mean Corpuscular Hemoglobin Concent 31.1 L, Red Cell Distribution Width 13.7, Neutrophils (%) (Auto) 93.5 H, Lymphocytes (%) (Auto) 3.4 L, Monocytes (%) (Auto) 1.6, Eosinophils (%) (Auto) 0.0, Basophils (%) (Auto ) 0.1, Neutrophils # (Auto) 7.1, Lymphocytes # (Auto) 0.3 L, Monocytes # (Auto) 0.1, Eosinophils # (Auto) 0.0, Basophils # (Auto) 0.0, Calcium Level 8.8, Aspartate Amino Transf (AST/SGOT) 19, Alanine Aminotransferase (ALT/SGPT) 19, Alkaline Phosphatase 80, Total Bilirubin 0.3, Total Protein 6.5, Albumin 2.1 L Vital Signs Date Time Temp Pulse Resp B/P (MAP) Pulse Ox O2 Delivery O2 Flow Rate FiO2 04/24/17 08:33 89 136/65 04/24/17 07:27 Nasal Cannula 4.0 04/24/17 07:18 98.3 18 88 04/22/17 05:00 50 I&O- Last 24 Hours up to 6 AM 04/25/17 06:00 Intake Total 480 ml Balance 480 ml KRISTEN GRAVES DO Apr 24, 2017 12:47
[2017-04-24] MEDS: ALPRAZolam 0.25 MG TAB PO SCH (20:37)
[2017-04-24] MEDS: SIMVASTATIN 20 MG TAB PO SCH (20:37)
[2017-04-24] MEDS: traZODone 50 MG TAB PO SCH (20:38)
[2017-04-24] MEDS: METOPROLOL SUCC *XL* 25MG TAB (TopROL *XL*) PO SCH (20:39)
[2017-04-25] MEDS: methylPREDNISolone INJ 125 MG/2 ML VIAL (J2930) IV SCH (01:53)
[2017-04-25 06:00] VITALS: BP 140/64
[2017-04-25 06:40] LABS: IMMATURE GRANULOCYTE % 2.8 % (0-0); MEAN CORPUSCULAR HEMOGLOBIN 28.5 pg (27.0-33.0); MEAN CORPUSCULAR HGB CONC 30.4 g/dl (32.0-36.5); MEAN CORPUSCULAR VOLUME 93.5 fl (80.0-96.0); MONO # 0.1 10^3/uL (0.0-0.8); MONO % 1.3 % (0.0-5.0); NEUTROPHILS # 4.9 10^3/uL (1.8-7.7); NEUTROPHILS % 91.9 % (36.0-66.0); PLATELET COUNT, AUTOMATED 141 10^3/uL (150-450); RED CELL DISTRIBUTION WIDTH 13.6 % (11.5-14.5); WHITE BLOOD COUNT 5.3 10^3/uL (4.0-10.0)
[2017-04-25 07:03] LABS: ALBUMIN 2.3 GM/DL (3.2-5.2); ALBUMIN/GLOBULIN RATIO 0.49 (1.00-1.93); ALKALINE PHOSPHATASE 85 U/L (45-117); ALT/SGPT 25 U/L (12-78); ANION GAP 3 MEQ/L (8-16); AST/SGOT 16 U/L (7-37); BILIRUBIN,TOTAL 0.3 MG/DL (0.2-1.0); BLOOD UREA NITROGEN 25 MG/DL (7-18); CARBON DIOXIDE LEVEL 39 MEQ/L (21-32); CHLORIDE LEVEL 101 MEQ/L (98-107); GLOMERULAR FILTRATION RATE > 60.0 (>42); GLUCOSE, FASTING 140 MG/DL (83-110); MAGNESIUM LEVEL 2.2 MG/DL (1.8-2.4); POTASSIUM SERUM 4.3 MEQ/L (3.5-5.1); SODIUM LEVEL 143 MEQ/L (136-145)
[2017-04-25 07:22] LABS: LYMPH # 0.2 10^3/uL (1.5-4.5); POSITIVE DIFF POS FLAG
[2017-04-25] MEDS: ADVAIR HFA 115/21MCG INHALER INH SCH ×2 (08:13→20:05)
[2017-04-25] MEDS: IPRATROPIUM 0.5MG/ALBUTEROL 2.5MG INH SOL UD 3ML (DUONEB)(J7620) NEB SCH ×5 (08:13→23:07)
[2017-04-25] MEDS: MIRALAX *UNIT DOSE* 17GM PACKET PO SCH (09:00)
[2017-04-25] MEDS: hydrOXYzine 50 MG TAB PO SCH ×3 (09:47→21:27)
[2017-04-25] MEDS: amLODIPine 10 MG TAB PO SCH (09:47)
[2017-04-25] MEDS: TAMSULOSIN 0.4 MG CAP PO SCH (09:47)
[2017-04-25] MEDS: guaiFENesin ER 600 MG TAB PO SCH ×2 (09:47→21:26)
[2017-04-25] MEDS: ASPIRIN 81 MG ENTERIC TAB PO SCH (09:48)
[2017-04-25] MEDS: cefTRIAXone SOD 2 GM in D5W 50 ML IV SCH (09:48)
[2017-04-25] MEDS: THIAMINE 100 MG TAB PO SCH (09:48)
[2017-04-25] MEDS: OMEPRAZOLE 20 MG CAP PO SCH (09:48)
[2017-04-25] MEDS: APIXABAN 5 MG TAB (ELIQUIS) PO SCH ×2 (09:48→21:26)
[2017-04-25 10:00] VITALS: BP 142/74
--- NOTE | 2017-04-25 11:57 | IPNPDOC ---
Text Note Date of Service The patient was seen on 04/25/17. NOTE Subjective: Patient is a 76 year old male with a PMHx of COPD, CHF, HTN, GERD, chronic a fib, BPH, renal cyst, dyslipidemia presented with shortness of breath with consolidation on left side and large pleural effusion on right side. Patient seen and examined at bedside. He is feeling better today again. Denies fever/chill, chest pain, sob. Denies any abdominal pain, nausea, vomiting, diarrhea, and constipation, problems with urine or blood in urine or stool. Denies any other current new complaints. Objective: Vitals (See below) General: elderly male, lying in bed, in mild distress, AAOx3 HEENT: NC, AT, EOMI CVS: RRR, normal S1S2, difficult to auscultation due to increased AP diameter Lungs: some rhonchi improved from yesterday Abdomen: Soft, ND, NT, no peritoneal signs Extremities: No edema clubbing or cyanosis Skin: warm and dry Neuro: CN 2- 12 intact, no focal neurological deficit Assessment and plan: Dyspnea (Cough and SOB) - likely multifactorial; 2/2 large right sided pleural effusion, possibly 2/2 acute COPD exacerbation, possible 2/2 community acquired pneumonia -s/p US guided thoracentesis with IR, pleural study using light's criteria shows it was exudative likely 2/2 infection - Pleural fluid culture and cytology pending. - Mucinex - c/w Supplemental oxygen Acute hypoxic respiratory failure with left lower lobe pneumonia possible community acquired: - Blood cx came back 04/24/17 Strep Pneumo s Rocephin - D/C Vanco 04/24/17 - C/W IV antibiotics, 04/22/17 Rocephin 2 g q 24 h day 4 - DuoNebs - Advair - chest PT 04/24/17 Leukocytosis - likely 2/2 infectious process, possibly 2/2 reactive process ( Corticosteroids) - Presented with leukocytosis improving - CRP also improving Hypokalemia - Resolved - Started trail of home Lasix History of COPD with chronic hypoxic respiratory failure on 4L O2 at home 24 hours a day -HOLD prednisone -Started IV steroid Solumedrol, reduced to 40 mg IV q12H Cardiac risk - Continue ASA CHF - Was holding Lasix 40 mg IV daily (will hold for hypokalemia) - Restarted Lasix 20 mg PO once today -In/Outs monitored - Echo 04/22/17 showed normal LV systolic function, very high central venous pressure HTN - On Norvasc 10 mg daily, Metoprol succinate 25 mg qhs GERD -PPI Chronic Afib - Eliquis was on hold due to thoracentesis - Resumed Eliquis on 04/23/17 Renal cyst hx BPH with urinary retention, self straight cath at home 4 times a day -Will start amador Dyslipedemia -c/w statin Anxiety - Atarax Constipation: - Holding lactulose Insomnia: - continue Trazodone DVT prophylaxis: SCD/TEDS, and Eliquis Fluid, electrolyte, nutrition: Low fat and low cholesterol diet, 2G Na, 2 fluid restriction Disposition: Physical therapy has been consulted to assess condition for discharge. GME ATTESTATION My preceptor for this patient encounter was physically present in the building during the encounter and was fully available. As needed, all aspects of the patient interview, examination, medical decision making process, and medical care plan development were reviewed and approved by the preceptor. Preceptor is aware and concurs with the plan as stated in the body of this note and will attest to such by his/her cosignature. VS,Fishbone, I+O VS, Fishbone, I+O Laboratory Tests 04/25/17 06:31 Red Blood Count 3.55 L, Mean Corpuscular Volume 93.5, Mean Corpuscular Hemoglobin 28.5, Mean Corpuscular Hemoglobin Concent 30.4 L, Red Cell Distribution Width 13.6, Neutrophils (%) (Auto) 91.9 H, Lymphocytes (%) (Auto) 4.0 L, Monocytes (%) (Auto) 1.3, Eosinophils (%) (Auto) 0.0, Basophils (%) (Auto ) 0.0, Neutrophils # (Auto) 4.9, Lymphocytes # (Auto) 0.2 L, Monocytes # (Auto) 0.1, Eosinophils # (Auto) 0.0, Basophils # (Auto) 0.0, Calcium Level 9.0, Aspartate Amino Transf (AST/SGOT) 16, Alanine Aminotransferase (ALT/SGPT) 25, Alkaline Phosphatase 85, Total Bilirubin 0.3, Total Protein 7.0, Albumin 2.3 L Vital Signs Date Time Temp Pulse Resp B/P (MAP) Pulse Ox O2 Delivery O2 Flow Rate FiO2 04/25/17 06:00 97.6 72 18 140/64 (89) 95 Nasal Cannula 4.0 04/22/17 05:00 50 KRISTEN GRAVES DO Apr 25, 2017 07:57
[2017-04-25] MEDS: methylPREDNISolone INJ 40 MG/1 ML VIAL (J2920) IV SCH (13:33)
[2017-04-25] MEDS: FUROSEMIDE 20 MG TAB PO SCH (13:34)
[2017-04-25 14:00] VITALS: BP 135/63
[2017-04-25 18:00] VITALS: BP 142/68
[2017-04-25] MEDS ORDERED: guaiFENesin ER 600 MG TAB PO SCH (21:00)
[2017-04-25] MEDS: SIMVASTATIN 20 MG TAB PO SCH (21:26)
[2017-04-25] MEDS: METOPROLOL SUCC *XL* 25MG TAB (TopROL *XL*) PO SCH (21:26)
[2017-04-25] MEDS: traZODone 50 MG TAB PO SCH (21:26)
[2017-04-25] MEDS: ALPRAZolam 0.25 MG TAB PO SCH (21:27)
[2017-04-25 22:00] VITALS: BP 153/86
[2017-04-26 02:00] VITALS: BP 150/81
[2017-04-26] MEDS: methylPREDNISolone INJ 40 MG/1 ML VIAL (J2920) IV SCH ×2 (02:03→14:32)
[2017-04-26] MEDS: IPRATROPIUM 0.5MG/ALBUTEROL 2.5MG INH SOL UD 3ML (DUONEB)(J7620) NEB SCH ×6 (03:28→23:15)
[2017-04-26 06:00] VITALS: BP 146/79
[2017-04-26 06:17] LABS: BASO % 0.2 % (0.0-1.0); IMMATURE GRANULOCYTE % 4.8 % (0-0); LYMPH # 0.6 10^3/uL (1.5-4.5); MEAN CORPUSCULAR HEMOGLOBIN 29.3 pg (27.0-33.0); MEAN CORPUSCULAR HGB CONC 31.3 g/dl (32.0-36.5); MEAN CORPUSCULAR VOLUME 93.5 fl (80.0-96.0); MONO # 0.2 10^3/uL (0.0-0.8); MONO % 4.3 % (0.0-5.0); NEUTROPHILS # 4.5 10^3/uL (1.8-7.7); NEUTROPHILS % 80.7 % (36.0-66.0); PLATELET COUNT, AUTOMATED 145 10^3/uL (150-450); RED CELL DISTRIBUTION WIDTH 13.7 % (11.5-14.5); WHITE BLOOD COUNT 5.6 10^3/uL (4.0-10.0)
[2017-04-26 06:34] LABS: ALBUMIN 2.2 GM/DL (3.2-5.2); ALBUMIN/GLOBULIN RATIO 0.61 (1.00-1.93); ALKALINE PHOSPHATASE 71 U/L (45-117); ALT/SGPT 24 U/L (12-78); ANION GAP 4 MEQ/L (8-16); AST/SGOT 15 U/L (7-37); BILIRUBIN,TOTAL 0.4 MG/DL (0.2-1.0); BLOOD UREA NITROGEN 24 MG/DL (7-18); CALCIUM LEVEL 8.5 MG/DL (8.8-10.2); CARBON DIOXIDE LEVEL 39 MEQ/L (21-32); CHLORIDE LEVEL 101 MEQ/L (98-107); CREATININE FOR GFR 0.81 MG/DL (0.70-1.30); GLOMERULAR FILTRATION RATE > 60.0 (>42); GLUCOSE, FASTING 113 MG/DL (83-110); MAGNESIUM LEVEL 2.2 MG/DL (1.8-2.4); POTASSIUM SERUM 4.2 MEQ/L (3.5-5.1); SODIUM LEVEL 144 MEQ/L (136-145); TOTAL PROTEIN 5.8 GM/DL (6.4-8.2)
[2017-04-26] MEDS: ADVAIR HFA 115/21MCG INHALER INH SCH ×2 (07:22→19:57)
[2017-04-26] MEDS: MIRALAX *UNIT DOSE* 17GM PACKET PO SCH (09:00)
[2017-04-26] MEDS: guaiFENesin ER 600 MG TAB PO SCH ×2 (09:06→20:20)
[2017-04-26] MEDS: TAMSULOSIN 0.4 MG CAP PO SCH (09:06)
[2017-04-26] MEDS: hydrOXYzine 50 MG TAB PO SCH ×3 (09:06→20:19)
[2017-04-26] MEDS: cefTRIAXone SOD 2 GM in D5W 50 ML IV SCH (09:06)
[2017-04-26] MEDS: FUROSEMIDE 20 MG TAB PO SCH (09:06)
[2017-04-26] MEDS: OMEPRAZOLE 20 MG CAP PO SCH (09:06)
[2017-04-26] MEDS: amLODIPine 10 MG TAB PO SCH (09:07)
[2017-04-26] MEDS: APIXABAN 5 MG TAB (ELIQUIS) PO SCH ×2 (09:07→20:19)
[2017-04-26] MEDS: THIAMINE 100 MG TAB PO SCH (09:07)
[2017-04-26] MEDS: ASPIRIN 81 MG ENTERIC TAB PO SCH (09:07)
[2017-04-26 10:00] VITALS: BP 137/63
[2017-04-26 14:00] VITALS: BP 132/60
[2017-04-26 18:00] VITALS: BP 153/70
[2017-04-26] MEDS: SIMVASTATIN 20 MG TAB PO SCH (20:19)
[2017-04-26] MEDS: traZODone 50 MG TAB PO SCH (20:19)
[2017-04-26] MEDS: ALPRAZolam 0.25 MG TAB PO SCH (20:19)
[2017-04-26] MEDS: METOPROLOL SUCC *XL* 25MG TAB (TopROL *XL*) PO SCH (20:20)
[2017-04-26 22:00] VITALS: BP 137/67
--- NOTE | 2017-04-27 00:32 | IPNPDOC ---
Text Note Date of Service The patient was seen on 04/26/17. NOTE Subjective: Patient is a 76 year old male with a PMHx of COPD, CHF, HTN, GERD, chronic a fib, BPH, renal cyst, dyslipidemia presented with shortness of breath with consolidation on left side and large pleural effusion on right side. Patient seen and examined at bedside. He is feeling about the same, much better since admission. Denies fever/chill, chest pain, sob. Denies any abdominal pain , nausea, vomiting, diarrhea, and constipation, problems with urine or blood in urine or stool. Denies any other current new complaints. Objective: Vitals (See below) General: elderly male, lying in bed, in mild distress, AAOx3 HEENT: NC, AT, EOMI CVS: RRR, normal S1S2, difficult to auscultation due to increased AP diameter Lungs: some rhonchi improved from yesterday Abdomen: Soft, ND, NT, no peritoneal signs Extremities: No edema clubbing or cyanosis Skin: warm and dry Neuro: CN 2- 12 intact, no focal neurological deficit Assessment and plan: Dyspnea (Cough and SOB) - likely multifactorial; 2/2 large right sided pleural effusion, possibly 2/2 acute COPD exacerbation, possible 2/2 community acquired pneumonia -s/p US guided thoracentesis with IR, pleural study using light's criteria shows it was exudative likely 2/2 infection - Pleural fluid culture showed no growth 04/24/17 and cytology showed purulent inflammation consistent with empyema no malignancy 04/23/17 - Mucinex - c/w Supplemental oxygen - c/w steroid taper Bacteremia likely from empyema of the chest cavity - Blood cx x2 came back 04/24/17 Strep Pneumo - Echo negative for vegetation - repeat blood cultures negative - C/W ceftriaxone 04/22/17which was sensitive, day 6, and total days of combined antibiotics use days was day 7 Acute hypoxic respiratory failure with left lower lobe pneumonia possible community acquired with empyema - Blood cx came back 04/24/17 Strep Pneumo s Rocephin - D/C Vanco 04/24/17 - C/W IV antibiotics, 04/22/17 Rocephin 2 g q 24 h day 6 - DuoNebs - Advair - chest PT 04/24/17 Leukocytosis - likely 2/2 infectious process, possibly 2/2 reactive process ( Corticosteroids) - Presented with leukocytosis improving - CRP also improving Hypokalemia - Resolved - Started trail of home Lasix History of COPD with chronic hypoxic respiratory failure on 4L O2 at home 24 hours a day -Continue steroid taper Cardiac risk - Continue ASA CHF - Was holding Lasix 40 mg daily (will hold for hypokalemia) - Restarted Lasix 20 mg PO once today -In/Outs monitored - Echo 04/22/17 showed normal LV systolic function, very high central venous pressure HTN - On Norvasc 10 mg daily, Metoprol succinate 25 mg qhs GERD -PPI Chronic Afib - Eliquis was on hold due to thoracentesis - Resumed Eliquis on 04/23/17 Renal cyst hx BPH with urinary retention, self straight cath at home 4 times a day -amador DC'd, started straight cath Dyslipedemia -c/w statin Anxiety - Atarax Constipation: - Holding lactulose Insomnia: - continue Trazodone DVT prophylaxis: SCD/TEDS, and Eliquis Fluid, electrolyte, nutrition: Low fat and low cholesterol diet, 2G Na, 2 fluid restriction Disposition: Waiting for clinically improve. GME ATTESTATION My preceptor for this patient encounter was physically present in the building during the encounter and was fully available. As needed, all aspects of the patient interview, examination, medical decision making process, and medical care plan development were reviewed and approved by the preceptor. Preceptor is aware and concurs with the plan as stated in the body of this note and will attest to such by his/her cosignature. VS,Fishbone, I+O VS, Fishbone, I+O Laboratory Tests 04/26/17 05:59 Red Blood Count 3.21 L, Mean Corpuscular Volume 93.5, Mean Corpuscular Hemoglobin 29.3, Mean Corpuscular Hemoglobin Concent 31.3 L, Red Cell Distribution Width 13.7, Neutrophils (%) (Auto) 80.7 H, Lymphocytes (%) (Auto) 10.0 L, Monocytes (%) (Auto) 4.3, Eosinophils (%) (Auto) 0.0, Basophils (%) ( Auto) 0.2, Neutrophils # (Auto) 4.5, Lymphocytes # (Auto) 0.6 L, Monocytes # ( Auto) 0.2, Eosinophils # (Auto) 0.0, Basophils # (Auto) 0.0, Calcium Level 8.5 L , Aspartate Amino Transf (AST/SGOT) 15, Alanine Aminotransferase (ALT/SGPT) 24, Alkaline Phosphatase 71, Total Bilirubin 0.4, Total Protein 5.8 L, Albumin 2.2 L Vital Signs Date Time Temp Pulse Resp B/P (MAP) Pulse Ox O2 Delivery O2 Flow Rate FiO2 04/26/17 06:00 96.8 77 22 146/79 (101) 97 Nasal Cannula 4.0 04/22/17 05:00 50 I&O- Last 24 Hours up to 6 AM 04/27/17 05:59 Intake Total 120 ml Balance 120 ml KRISTEN GRAVES DO Apr 26, 2017 08:38
[2017-04-27] MEDS: IPRATROPIUM 0.5MG/ALBUTEROL 2.5MG INH SOL UD 3ML (DUONEB)(J7620) NEB SCH ×6 (03:37→23:19)
[2017-04-27] MEDS: ADVAIR HFA 115/21MCG INHALER INH SCH ×2 (07:44→19:54)
[2017-04-27] MEDS: hydrOXYzine 50 MG TAB PO SCH ×3 (08:48→20:41)
[2017-04-27] MEDS: OMEPRAZOLE 20 MG CAP PO SCH (08:48)
[2017-04-27] MEDS: THIAMINE 100 MG TAB PO SCH (08:48)
[2017-04-27] MEDS: ASPIRIN 81 MG ENTERIC TAB PO SCH (08:48)
[2017-04-27] MEDS: MIRALAX *UNIT DOSE* 17GM PACKET PO SCH (08:48)
[2017-04-27] MEDS: guaiFENesin ER 600 MG TAB PO SCH ×2 (08:48→20:40)
[2017-04-27] MEDS: TAMSULOSIN 0.4 MG CAP PO SCH (08:48)
[2017-04-27] MEDS: APIXABAN 5 MG TAB (ELIQUIS) PO SCH ×2 (08:48→20:40)
[2017-04-27] MEDS: amLODIPine 10 MG TAB PO SCH (08:48)
[2017-04-27] MEDS: FUROSEMIDE 20 MG TAB PO SCH (08:49)
[2017-04-27] MEDS: cefTRIAXone SOD 2 GM in D5W 50 ML IV SCH (08:49)
[2017-04-27] MEDS ORDERED: predniSONE 20 MG TAB PO SCH (09:00)
[2017-04-27 09:09] LABS: MEAN CORPUSCULAR HEMOGLOBIN 28.9 pg (27.0-33.0); MEAN CORPUSCULAR HGB CONC 30.7 g/dl (32.0-36.5); MEAN CORPUSCULAR VOLUME 94.1 fl (80.0-96.0); PLATELET COUNT, AUTOMATED 167 10^3/uL (150-450); RED CELL DISTRIBUTION WIDTH 13.7 % (11.5-14.5); WHITE BLOOD COUNT 6.3 10^3/uL (4.0-10.0)
[2017-04-27 09:19] LABS: ANION GAP 5 MEQ/L (8-16); BLOOD UREA NITROGEN 24 MG/DL (7-18); CALCIUM LEVEL 8.2 MG/DL (8.8-10.2); CARBON DIOXIDE LEVEL 38 MEQ/L (21-32); CHLORIDE LEVEL 102 MEQ/L (98-107); CREATININE FOR GFR 0.72 MG/DL (0.70-1.30); GLOMERULAR FILTRATION RATE > 60.0 (>42); GLUCOSE, FASTING 123 MG/DL (83-110); POTASSIUM SERUM 4.2 MEQ/L (3.5-5.1); SODIUM LEVEL 145 MEQ/L (136-145)
[2017-04-27 10:00] VITALS: BP 135/65
[2017-04-27] MEDS ORDERED: ALPRAZolam 0.5 MG TAB PO SCH (11:28)
[2017-04-27 14:00] VITALS: BP 133/72
--- NOTE | 2017-04-27 17:39 | IPNPDOC ---
Text Note Date of Service The patient was seen on 04/27/17. NOTE Subjective: Patient states his dyspnea is improving however still continues to have significant amount of productive sputum. Objective: Vitals: (see below) General: No acute distress, laying comfortably in bed. HEENT: Moist mucous membranes. Neck: No JVD or lymphadenopathy Cardiac: RRR, No murmurs Pulm: Coarse crackles and diminished breath sounds at the bases b/l. No wheezing , rhonchi Abd: NT/ND + BS Ext: Trace edema bilateral lower extremities. No cyanosis. Labs (see below) Images: Assessment/Plan 1. Acute hypoxic respiratory failure secondary to community-acquired pneumonia- improved. Continue antibiotics. Blood cultures with strep pneumo bacteremia. Echocardiogram is no vegetations noted. Repeat blood cultures negative. Continue Mucinex, steroid taper, nebs. 2. Pleural effusion likely parapneumonic as well as secondary to diastolic heart failure. Status post thoracentesis. Pleural fluid culture is negative. Pathology with purulent inflammation. 3. Severe COPD with chronic hypoxic respiratory failure on 4 L home O2 4. History of diastolic heart failure on Lasix 5. History of hypertension- continue current meds 6. GERD on PPI 7. Atrial fibrillation - eliquis, BB 8. History of anxiety 9. History of insomnia 10. History of BPH with retention- states he straight caths himself 4 times a day 11. Hypokalemia replaced DVT prophy: Eliquis Prognosis guarded. VS,Fishbone, I+O VS, Fishbone, I+O Laboratory Tests 04/27/17 05:43 Red Blood Count 3.22 L, Mean Corpuscular Volume 94.1, Mean Corpuscular Hemoglobin 28.9, Mean Corpuscular Hemoglobin Concent 30.7 L, Red Cell Distribution Width 13.7, Calcium Level 8.2 L Vital Signs Date Time Temp Pulse Resp B/P (MAP) Pulse Ox O2 Delivery O2 Flow Rate FiO2 04/27/17 14:00 97.8 89 18 133/72 (92) 96 Nasal Cannula 4.0 04/22/17 05:00 50 I&O- Last 24 Hours up to 6 AM 04/28/17 06:00 Intake Total 780 ml Output Total 1100 ml Balance -320 ml RAEANN LUTHER MD Apr 27, 2017 17:39
[2017-04-27] MEDS: POLYVINYL ALCOHOL OPHTH SOLN 15 ML(LIQUITEARS) OU PRN ×2 (17:58→19:36)
[2017-04-27 18:00] VITALS: BP 118/60
[2017-04-27] MEDS: ALPRAZolam 0.5 MG TAB PO SCH (20:41)
[2017-04-27] MEDS: SIMVASTATIN 20 MG TAB PO SCH (20:41)
[2017-04-27] MEDS: METOPROLOL SUCC *XL* 25MG TAB (TopROL *XL*) PO SCH (20:44)
[2017-04-27] MEDS: traZODone 50 MG TAB PO SCH (20:44)
[2017-04-27 22:00] VITALS: BP 143/59
[2017-04-28] MEDS: IPRATROPIUM 0.5MG/ALBUTEROL 2.5MG INH SOL UD 3ML (DUONEB)(J7620) NEB SCH ×5 (01:49→20:00)
[2017-04-28 02:00] VITALS: BP 130/68
[2017-04-28 06:00] VITALS: BP 157/76
[2017-04-28] MEDS: ADVAIR HFA 115/21MCG INHALER INH SCH ×2 (07:17→20:18)
[2017-04-28] MEDS: TIOTROPIUM INHALER/CAPSULE (SPIRIVA) INH SCH (08:00)
[2017-04-28] MEDS: APIXABAN 5 MG TAB (ELIQUIS) PO SCH ×2 (08:54→21:00)
[2017-04-28] MEDS: guaiFENesin ER 600 MG TAB PO SCH ×2 (08:54→20:59)
[2017-04-28] MEDS: cefTRIAXone SOD 2 GM in D5W 50 ML IV SCH (08:54)
[2017-04-28] MEDS: predniSONE 20 MG TAB PO SCH (08:54)
[2017-04-28] MEDS: hydrOXYzine 50 MG TAB PO SCH ×3 (08:54→20:59)
[2017-04-28] MEDS: OMEPRAZOLE 20 MG CAP PO SCH (08:55)
[2017-04-28] MEDS: ASPIRIN 81 MG ENTERIC TAB PO SCH (08:55)
[2017-04-28] MEDS: amLODIPine 10 MG TAB PO SCH (08:55)
[2017-04-28] MEDS: MIRALAX *UNIT DOSE* 17GM PACKET PO SCH (08:56)
[2017-04-28] MEDS: THIAMINE 100 MG TAB PO SCH (08:56)
[2017-04-28] MEDS: TAMSULOSIN 0.4 MG CAP PO SCH (08:56)
[2017-04-28] MEDS ORDERED: FUROSEMIDE 40 MG TAB PO SCH (09:00)
[2017-04-28 10:00] VITALS: BP 132/62
[2017-04-28] MEDS ORDERED: ISOVUE-370 76% 100ML VIAL (Q9967) As Ordered ONE ×2 (11:56→12:17)
[2017-04-28 14:00] VITALS: BP 125/67
[2017-04-28] MEDS: FUROSEMIDE 40 MG/4 ML VIAL (J1940) IV SCH ×2 (14:49→17:35)
--- NOTE | 2017-04-28 17:18 | IPNPDOC ---
Text Note Date of Service The patient was seen on 04/28/17. NOTE Subjective: Patient is a 76 year old male with a PMHx of COPD, CHF, HTN, GERD, chronic a fib, BPH, renal cyst, dyslipidemia presented with shortness of breath with consolidation on left side and large pleural effusion on right side. Patient seen and examined at bedside. He is feeling about the same. Denies fever/chill, chest pain, worsening sob. Denies any abdominal pain, nausea, vomiting, diarrhea, and constipation, problems with urine or blood in urine or stool. Denies any other current new complaints. Objective: Vitals (See below) General: elderly male, lying in bed, in mild distress, AAOx3 HEENT: NC, AT, EOMI CVS: irregular heart beat, difficult to auscultation due to increased AP diameter Lungs: some rhonchi bl with some rales Abdomen: Soft, ND, NT, no peritoneal signs Extremities: 2+ pitting edema around the ankle Skin: warm and dry Neuro: CN 2- 12 intact, no focal neurological deficit Assessment and plan: Dyspnea (Cough and SOB) - likely multifactorial; 2/2 large right sided pleural effusion, vs COPD exacerbation, vs community acquired pneumonia vs CHF - Dr. Cordova from pulmonology was consulted we appreciate her help, recommend to increase diurese patient for a net negative 1 L per day -s/p US guided thoracentesis with IR, removed 2 L dark yellow fluid, pleural study using light's criteria shows it was exudative likely 2/2 infection - Pleural fluid culture showed no growth 04/24/17 and cytology showed purulent inflammation consistent with empyema no malignancy 04/23/17 - Mucinex - c/w Supplemental oxygen - c/w steroid taper, he was on steroid at home - c/w lasix Bacteremia likely from pulmonary etiology - Blood cx x2 came back 04/24/17 Strep Pneumo - Echo negative for vegetation - repeat blood cultures negative - C/W ceftriaxone 04/22/17which was sensitive, day 8, and total days of combined antibiotics use days was day 9 Acute hypoxic respiratory failure with left lower lobe pneumonia possible community acquired with parapneumonic effusion - He was on ventur mas 50% FiO2 and was only saturating 87% on admission, he was on 2L NC at home - Blood cx came back 04/24/17 Strep Pneumo s Rocephin - D/C Vanco 04/24/17 - C/W IV antibiotics, 04/22/17 Rocephin 2 g q 24 h day 8 - DuJohnny - Advair - chest PT 04/24/17 Leukocytosis - likely 2/2 infectious process, possibly 2/2 reactive process ( Corticosteroids) - Presented with leukocytosis improving - CRP also improving Hypokalemia - Resolved - Started trail of home Lasix History of COPD with chronic hypoxic respiratory failure on 4L O2 at home 24 hours a day -Continue steroid taper Cardiac risk - Continue ASA HFpEF - Back on home Lasix 40 mg daily 04/28/17 from lasix 20 mg daily -In/Outs monitored - Echo 04/22/17 showed normal LV systolic function, very high central venous pressure HTN - On Norvasc 10 mg daily, Metoprol succinate 25 mg qhs GERD -PPI Chronic Afib - Eliquis was on hold due to thoracentesis - Resumed Eliquis on 04/23/17 Renal cyst hx BPH with urinary retention, self straight cath at home 4 times a day -perry DC'd, started straight cath Dyslipedemia -c/w statin Anxiety - Atarax Constipation: - Holding lactulose Insomnia: - continue Trazodone DVT prophylaxis: SCD/TEDS, and Eliquis Fluid, electrolyte, nutrition: Low fat and low cholesterol diet, 2G Na, 2 fluid restriction Disposition: Waiting for clinically improve with lasix and antibiotics. GME ATTESTATION My preceptor for this patient encounter was physically present in the building during the encounter and was fully available. As needed, all aspects of the patient interview, examination, medical decision making process, and medical care plan development were reviewed and approved by the preceptor. Preceptor is aware and concurs with the plan as stated in the body of this note and will attest to such by his/her cosignature. VS,Fishbone, I+O VS, Fishbone, I+O Vital Signs Date Time Temp Pulse Resp B/P (MAP) Pulse Ox O2 Delivery O2 Flow Rate FiO2 04/28/17 07:18 Nasal Cannula 4.0 04/28/17 06:00 97.7 60 20 157/76 (103) 95 04/22/17 05:00 50 KRISTEN GRAVES DO Apr 28, 2017 08:36
[2017-04-28 18:00] VITALS: BP 131/60
[2017-04-28] MEDS: METOPROLOL SUCC *XL* 25MG TAB (TopROL *XL*) PO SCH (21:00)
[2017-04-28] MEDS: traZODone 50 MG TAB PO SCH (21:00)
[2017-04-28] MEDS: SIMVASTATIN 20 MG TAB PO SCH (21:00)
[2017-04-28] MEDS: ALPRAZolam 0.5 MG TAB PO SCH (21:00)
[2017-04-28 22:00] VITALS: BP 117/58
[2017-04-29 02:00] VITALS: BP 131/73
[2017-04-29] MEDS: FUROSEMIDE 40 MG/4 ML VIAL (J1940) IV SCH ×4 (02:11→18:35)
[2017-04-29] MEDS: IPRATROPIUM 0.5MG/ALBUTEROL 2.5MG INH SOL UD 3ML (DUONEB)(J7620) NEB SCH ×7 (03:28→23:57)
[2017-04-29 06:00] VITALS: BP 118/65
--- NOTE | 2017-04-29 06:13 | REP ---
AP PORTABLE SEATED CHEST: 04/28/2017: Comparison: 04/23/2017, 04/22/2017, 04/21/2017. Clinical history: Dyspnea, congestion. Findings: Exam is lordotic which limits evaluation of the posterior lower lung zones and exaggerates heart size. With that said, the heart is enlarged. There is vascular redistribution with venous hypertension and some suspected interstitial edema. Bilateral effusions noted, right greater than left, both increased since the prior study with compressive atelectasis or infiltrate in both bases, left much greater than right. Impression: 1. Bibasilar consolidative atelectasis or infiltrates right greater than left with bilateral effusions right greater than left, and the effusions increasing compared to the previous study on 04/23/2017. There is vascular redistribution and suspected interstitial edema. Signed by James Franco MD 04/28/2017 07:06 P
--- NOTE | 2017-04-29 06:16 | CR ---
DATE: 04/28/2017 REASON FOR CONSULTATION: Pleural effusion. HISTORY OF PRESENT ILLNESS: Mr. Damico is a 76-year-old male who was admitted with volume overload and symptoms of infection. He was febrile on presentation with a productive cough, was found to have a Streptococcus pneumonia bacteremia and treated with antibiotics. On the day of admission, 04/22/2017, the patient had a thoracentesis, which showed significant neutrophilia and was described as dark yellow fluid resulting. There was no mention of pus being withdrawn from the chest . A total of 2150 mL was withdrawn. Cytology reported empyema; however, no organisms were seen on culture. The patient has been on ceftriaxone for 5 days. I was called to see the patient today. The patient's white count has decreased from 22 to 6.3 and he is no longer febrile. He states he feels well except for a productive cough with occasional phlegm. He states that the phlegm is pink in nature but no gross blood. He is short of breath, but less so than on admission. He has been drinking larger amounts of nonalcoholic beer at home. He lives with his daughter, who has been cooking his meals, who ensures a low sodium diet, however, he states that despite being on a fluid restriction he has had some increase in the amount of fluid that he consumes. He currently has no headache, fever, chills. No chest discomfort. PAST MEDICAL HISTORY: Significant for: 1. Chronic obstructive pulmonary disease. 2. Congestive heart failure, diastolic in nature, for which he is on oxygen and has been for over 6 years. 3. Chronic right lower lobe nodule, followed by Dr. Moore. No significant increase in size, first detected in August 2014. 4. Chronic right pleural effusion first seen on imaging May 2016. 5. Hypertension. 6. Gastroesophageal reflux disease. 7. Atrial fibrillation on chronic anticoagulation. 8. Rash. Thought to be secondary to psoriasis. On multiple medications for this. Occasionally will go on prednisone burst and taper. 9. Chronic prednisone use, 10 mg a day on average, originally prescribed for chronic obstructive pulmonary disease (COPD). 10. Anxiety. 11. Benign prostatic hypertrophy (BPH). 12. Dyslipidemia. 13. Chronic alcohol use. 14. Prior nicotine dependence. CURRENT MEDICATIONS: - Norvasc 10 mg by mouth daily - aspirin 81 mg by mouth daily - Colace 100 mg daily by mouth twice a day - Atarax 50 mg by mouth three times a day - Toprol XL 25 mg by mouth at night - Prilosec 20 mg by mouth daily - Advair 2 puffs inhaled twice a day - Zocor 20 mg by mouth at night - Flomax 0.8 mg by mouth daily - thiamine 100 mg by mouth daily - trazodone 50 mg by mouth at night - Eliquis 5 mg by mouth twice a day - ceftriaxone 2 grams daily - MiraLax - DuoNebs - Xanax - prednisone - Lasix 40 mg IV every 6 hours ALLERGIES: Reported anaphylaxis to MAKENNA INHIBITORS, undetermined allergy to CIPROFLOXACIN, FLUCONAZOLE, IBUPROFEN, SULFA DRUGS. Reported allergy to LATEX, although he has had latex exposures without issue. PENICILLIN listed as an allergy; however, he has had penicillin without difficulty in the past. SOCIAL HISTORY: He quit smoking in 2013. He has an 80 pack year history of smoking at least. Daily alcohol use, anywhere from 8 to 12 beers a day. Most recently has been using nonalcoholic beer. His daughter is in attendance in the room and she is a nurse and he lives with her. She prepares most of his meals, however, he independently gets his drinks. He basically sits all day long and has no significant activity. He ambulates back and forth to the bathroom. No illicit drug use. FAMILY HISTORY: Father had coronary disease. Mother with diabetes. CONSTITUTIONAL: The patient currently has no fevers, but did present with a fever. Has no chills, night sweats or recent weight loss or weight gain. HEENT: He is having difficulty with his vision, states his vision is getting so bad he is unable to see things and he is afraid to walk. He has had no epistaxis. No change in his ability to swallow. CARDIAC: No chest pain nor angina. He does have orthopnea. No paroxysmal nocturnal dyspnea. He has had lower extremity edema. PULMONARY: He has no pain with inhalation. No pleurisy. Productive cough as mentioned above. No wheeze. He has chronic prednisone use. GASTROINTESTINAL: No nausea, vomiting, diarrhea, constipation. No blood in stool. He states he has been eating fairly well. Does complain of a dry mouth. : no burning or pain with urination, no nephrolithiasis, no hematuria. ENDOCRINE: No history of diabetes, hypothyroidism. No polyuria, polydipsia. NEUROLOGIC: No unilateral weakness but feels a little unsteady with gait. No unilateral weakness, history of stroke or seizure or recent head trauma. PSYCHIATRIC: No depression, anxiety or suicidal ideation. ALLERGY/IMMUNOLOGY: No known environmental allergies. He has no known frequent respiratory infection. Sleep: No known sleep apnea, however, he does use oxygen at night. Difficult to tell whether he snores, no witnessed apneas. PHYSICAL EXAMINATION: Temperature is 97.5, pulse is 73, respiratory rate is 20, blood pressure is 132/62, oxygen saturation 94% on 4 liters. GENERAL: The patient is sitting comfortably in a chair at his bedside. No tachypnea. HEENT: Conjunctivae slightly injected. Pupils equal, react to light. Mucous membranes are moist. He is edentulous. Dentures in place. Tongue is midline. Mallampati 4. NECK: Supple. No tracheal deviation. There is elevated jugular venous pressure to the angle of his jaw despite him sitting in a 90 degree position. No thyromegaly. LYMPHATICS: No cervical, supraclavicular axillary adenopathy. CARDIAC: Distant S1, S2 without audible murmur, rub or gallop. There is elevated JVP, as mentioned above. PMI is displaced laterally. PULMONARY: Decreased breath sounds bilaterally, more so decreased at the right base. There is dullness to impression over two-thirds of the right base. Left is fairly clear except for some expiratory rhonchi. No wheeze. Minimal prolongation of expiratory phase. No accessory muscle use. There is increased tactile fremitus on the right. ABDOMEN: Soft, nontender, nondistended. No hepatosplenomegaly. No masses or hernia. No bruits or large vessel in the abdomen. EXTREMITIES: There is significant dependent edema to the level of the knee. There is dependence. There are skin changes with dependent rubor. Nails without clubbing or cyanosis. MUSCULOSKELETAL: Muscle tone is normal for stated age. No evidence of joint effusion or fracture. SKIN: No rash, jaundice, bruising or other skin changes other than mentioned in the extremities. LABORATORY EVALUATION: Shows a white blood cell count of 6.3, which is down from 22.2 on admission, hemoglobin is 9.3, hematocrit of 30.3, platelet count of 167, sodium is 145, potassium 4.2, chloride is 102, bicarbonate of 38, BUN of 24, creatinine 0.72 with a calcium 8.2. He is hypoalbuminemic with an albumin of 2.2. Blood cultures from 04/21 showed two demonstrating Strep pneumonia. Two subsequent blood cultures were negative. I reviewed the pleural fluid that showed no organisms. Pleural fluid from the tap on the showed significant neutrophilia. Glucose was fairly low at 75, total protein was 3.1, fluid albumin was 1.4, fluid LDH was elevated at 229. Amylase was 47, pH was 7.45. As mentioned above, cytology read as consistent with empyema because of purulent material. Chest CT personally reviewed from today shows a moderate right pleural effusion , small left pleural effusion, some dependent edema seen on the left. Some atelectasis versus infiltrate at the bases bilaterally and changes of the lung parenchyma consistent with chronic obstructive pulmonary disease and emphysema. There is mediastinal adenopathy with cardiomegaly. Mediastinal nodes are fairly round and do not appear to be inconsistent with that seen with heart failure, average size of the mediastinal lymph nodes is 9 mm. The largest lymph node on the right pretracheal node is 1.5 cm. Of note, this is a side with the largest pleural effusion. There is a pleural based nodule in the anterior portion of the right middle lobe, which does not appear to be changed drastically from August 2014. I also looked at CT scans dating back to May 2016, which shows a right pleural effusion. IMPRESSION: 1. Right pleural effusion. Initially presenting with infectious symptoms, Strep pneumococcal bacteremia and fever. If I was consulted at the time of April 22, I would considered putting a chest tube in at that time for my concern for empyema; however, now that the patient has a normal white count, is not febrile and there were no organisms seen in the pleural fluid, I believe that because of the chronicity of the pleural fluid it is likely secondary to heart failure. There has been no significant diuresis this entire hospital stay. Would recommend 1 liter diuresis; however, we will have to be careful as he received IV contrast this morning. Would attempt aggressive diuresis over the next few days. If his pleural effusion persists or if he becomes febrile, will consider repeat thoracentesis. However, he is at risk for hemorrhage given the fact that he is on Eliquis. At this point in time, it does not appear that he has an active empyema and that he is adequately treated with ceftriaxone with continued therapy for a total of 10 days. 2. Pulmonary nodule followed by Dr. Moore. No significant change in size. 3. COPD. I have added Spiriva to his inhaled regimen. He has an acapella device and is using this with nebulized therapy. To promote mucociliary clearance, I have added chest PT due to his occasional complaint of mucus plugging. Thank you for this consultation. We will continue to follow the patient closely. YURIYD
--- NOTE | 2017-04-29 06:16 | REP ---
CT CHEST WITH CONTRAST: 04/28/2017. Clinical history: Dyspnea, cough. Prior thoracentesis. Evaluate for possible empyema. Comparison: CT chest with contrast 04/22/2017, chest x-rays 04/28/2017, 04/23/2017, 04/22/2017. Technique: The patient received a bolus of 75 ml of Isovue 370 with scanning through the chest with both coronal and sagittal reconstructions. Findings: Study again shows bilateral pleural effusion, fairly large pleural effusion on the right with smaller left effusion. Both have increased from the previous study on 04/22/2017 although minimally on the left. Consolidative and compressive atelectatic changes in the lung base on the right and left involving the right lower lobe and left lower lobe as well as portions of the right middle lobe. Nodular infiltrate in the anterior margin of the right upper lobe on images 46 through 49, pleural-based and new since 6 days ago. Other areas of dependent atelectatic change along the major fissure on the left and adjacent to the pleural effusion on the right and left are noted. Heart size is unchanged. Left atrium mildly prominent. No pericardial thickening or effusion. The aorta has calcifications at the arch, ascending and descending portions without aneurysm or dissection. Mediastinal adenopathy with nodes in the right paratracheal region up to 13 mm. Subcentimeter precarinal and AP window nodes as well as prevascular space nodes. Griselda without pathologic sized adenopathy. I do not see pleural thickening along the visceral or parietal pleura at this time. No axillary or supraclavicular mass. Bone windows show the sternum, manubrium, medial clavicles, scapulae, ribs and vertebral bodies and posterior elements in the thoracic spine to be intact. There is superior endplate wedging of L1, unchanged. In the upper abdomen, that portion of liver seen is unremarkable. There is no splenomegaly. A few calcifications in the spleen are noted from old granulomas disease. Only a portion of the pancreas and gallbladder were included. Those are grossly unremarkable. Adrenal glands normal. Upper poles kidneys limited evaluation. No hiatal hernia. Impression: 1. Bilateral pleural effusions, right much greater than left and each has increased since the study 6 days ago, more so on the right than left. I do not see pleural thickening or enhancing pleural rind. Therefore by CT criteria. I cannot define empyema. There is consolidative atelectasis or infiltrate in the lower lobes and right middle lobe as described and a new nodular infiltrates right upper lobe, pleural-based. 2. Coronary artery calcifications and aortic calcifications without aneurysm or dissection. No mediastinal leak. The central pulmonary arteries were unremarkable. 3. A 13 mm node in the right paratracheal region, but the other mediastinal and hilar nodes all subcentimeter. No change in the upper abdomen or spine. Bony structures intact except for a compression deformity L1 as on the previous study. Signed by James Franco MD 04/28/2017 07:18 P
[2017-04-29] MEDS: TIOTROPIUM INHALER/CAPSULE (SPIRIVA) INH SCH (07:56)
[2017-04-29] MEDS: ADVAIR HFA 115/21MCG INHALER INH SCH ×2 (07:56→19:20)
[2017-04-29] MEDS: OMEPRAZOLE 20 MG CAP PO SCH (08:13)
[2017-04-29] MEDS: THIAMINE 100 MG TAB PO SCH (08:13)
[2017-04-29] MEDS: TAMSULOSIN 0.4 MG CAP PO SCH (08:13)
[2017-04-29] MEDS: hydrOXYzine 50 MG TAB PO SCH ×3 (08:13→21:16)
[2017-04-29] MEDS: guaiFENesin ER 600 MG TAB PO SCH ×2 (08:13→21:16)
[2017-04-29] MEDS: APIXABAN 5 MG TAB (ELIQUIS) PO SCH ×2 (08:13→21:16)
[2017-04-29] MEDS: amLODIPine 10 MG TAB PO SCH (08:14)
[2017-04-29] MEDS: MIRALAX *UNIT DOSE* 17GM PACKET PO SCH (08:14)
[2017-04-29] MEDS: ASPIRIN 81 MG ENTERIC TAB PO SCH (08:14)
[2017-04-29] MEDS: predniSONE 20 MG TAB PO SCH (08:14)
[2017-04-29] MEDS: cefTRIAXone SOD 2 GM in D5W 50 ML IV SCH (08:14)
[2017-04-29 12:09] LABS: MEAN CORPUSCULAR HEMOGLOBIN 29.6 pg (27.0-33.0); MEAN CORPUSCULAR HGB CONC 31.6 g/dl (32.0-36.5); MEAN CORPUSCULAR VOLUME 93.5 fl (80.0-96.0); PLATELET COUNT, AUTOMATED 205 10^3/uL (150-450); WHITE BLOOD COUNT 7.6 10^3/uL (4.0-10.0)
--- NOTE | 2017-04-29 12:14 | CCN ---
DATE: 04/29/2017 Mr. aDmico states he is feeling better and breathing better. He still does have some shortness of breath. He is down over 2 liters with the Lasix and states he is tolerating this. He notes that he has had much less edema in the lower extremities. He denies any chest pain or abdominal pain. The patient denies fevers or chills. The patient is using supplemental oxygen which he is also on at home. He denies any new issues. PHYSICAL EXAMINATION: VITALS: Temperature 97.8, pulse 68, respiratory rate 18, blood pressure is 121/58, oxygen saturation is 96% on 4 liters by nasal cannula. GENERAL: Patient is alert and oriented times three, sitting at bedside without perceived dyspnea with speech. HEAD: Normocephalic, atraumatic. Conjunctival injection. NECK: Supple with no tracheal deviation. No obvious jugular venous distention. (JVD). CHEST: Diminished breath sounds, otherwise clear. Dull to percussion right base. HEART: Distant, regular rate and rhythm. No obvious murmur. ABDOMEN: Positive bowel sounds, soft, nontender. EXTREMITIES: Trace to 1+ edema bilateral lower extremities. ASSESSMENT/PLAN: 1. Right pleural effusion. [place] to be likely secondary to heart failure. Patient is being diuresed with IV Lasix and is down over 2 liters in the past couple of days. There was a question of empyema as the patient did have initial presentation with infectious symptoms with strep pneumococcal bacteremia and fever. He has been afebrile and his white blood cell count has been trending down. Today's CBC is pending. If the pleural effusion persists, or if the patient becomes febrile, then consider thoracentesis. Patient is currently being treated with ceftriaxone and is on day 8. Antibiotic can likely be discontinued now. 2. Lung Nodule. Patient is followed by Dr. Moore as an outpatient. 3. Chronic obstructive pulmonary disease (COPD). Spiriva was added. Patient is continuing with Advair and using his Acapella. He follows with Dr. Moore as an outpatient. [facility]
[2017-04-29 12:22] LABS: ADD MANUAL DIFFER YES; DIFF SLIDE NUMBER 241; POS COUNT POS FLAG; POSITIVE MORPH POS FLAG
[2017-04-29 12:47] LABS: ANION GAP 5 MEQ/L (8-16); BLOOD UREA NITROGEN 22 MG/DL (7-18); CALCIUM LEVEL 7.9 MG/DL (8.8-10.2); CARBON DIOXIDE LEVEL 38 MEQ/L (21-32); CHLORIDE LEVEL 99 MEQ/L (98-107); GLOMERULAR FILTRATION RATE > 60.0 (>42); GLUCOSE, FASTING 145 MG/DL (83-110); POTASSIUM SERUM 4.5 MEQ/L (3.5-5.1); SODIUM LEVEL 142 MEQ/L (136-145)
[2017-04-29 12:49] LABS: BANDS 5 % (< 11); EOSINOPHILS 3 % (0-5)
[2017-04-29 12:55] LABS: ANISOCYTOSIS 1+
--- NOTE | 2017-04-29 13:54 | IPNPDOC ---
Text Note Date of Service The patient was seen on 04/29/17. NOTE Subjective: Patient is a 76 year old male with a PMHx of COPD, CHF, HTN, GERD, chronic a fib, BPH, renal cyst, dyslipidemia presented with shortness of breath with consolidation on left side and large pleural effusion on right side. Patient seen and examined at bedside. He is feeling much better today. Denies fever/chill, chest pain, worsening sob. Admits to improvement of swelling in lower extremities. Denies any abdominal pain, nausea, vomiting, diarrhea, and constipation, problems with urine or blood in urine or stool. Denies any other current new complaints. Objective: Vitals (See below) General: elderly male, lying in bed, in mild distress, AAOx3 HEENT: NC, AT, EOMI CVS: irregular heart beat, difficult to auscultation due to increased AP diameter Lungs: some rhonchi bl with some rales, reduced breathing sound at base of right lung Abdomen: Soft, ND, NT, no peritoneal signs Extremities: 2+ pitting edema around the ankle Skin: warm and dry Neuro: CN 2- 12 intact, no focal neurological deficit Assessment and plan: Dyspnea (Cough and SOB) - likely multifactorial; 2/2 large right sided pleural effusion, vs COPD exacerbation, vs community acquired pneumonia vs CHF - Dr. Cordova from pulmonology was consulted we appreciate her help, recommend to increase diurese patient for a net negative 1 L per day -s/p US guided thoracentesis with IR, removed 2 L dark yellow fluid, pleural study using light's criteria shows it was exudative likely 2/2 infection - Pleural fluid culture showed no growth 04/24/17 and cytology showed purulent inflammation consistent with empyema no malignancy 04/23/17 - Mucinex - c/w Supplemental oxygen - c/w steroid taper, he was on steroid at home - c/w lasix - Possible repeat thoracentesis if pleural effusion doesn't reduce with diuresis or if patient develops a fever - s/p Rocephin for 8 days - Start PO omnicef Bacteremia likely from pulmonary etiology - Blood cx x2 came back 04/24/17 Strep Pneumo - Echo negative for vegetation - repeat blood cultures negative - s/p ceftriaxone 04/22/17 which was sensitive, day 8, and total days of combined antibiotics use days was day 9 - switched to PO omnicef Acute hypoxic respiratory failure with left lower lobe pneumonia possible community acquired with parapneumonic effusion - He was on ventur mas 50% FiO2 and was only saturating 87% on admission, he was on 2L NC at home - Blood cx came back 04/24/17 Strep Pneumo s Rocephin - D/C Vanco 04/24/17 - C/W IV antibiotics, 04/22/17 Rocephin 2 g q 24 h day 8 - DuoNebs - Advair - chest PT 04/24/17 Leukocytosis - likely 2/2 infectious process, possibly 2/2 reactive process ( Corticosteroids) - Presented with leukocytosis improving - CRP also improving Hypokalemia - Resolved - Started trail of home Lasix History of COPD with chronic hypoxic respiratory failure on 4L O2 at home 24 hours a day -Continue steroid taper Cardiac risk - Continue ASA HFpEF - Back on home Lasix 40 mg daily 04/28/17 from lasix 20 mg daily -In/Outs monitored - Echo 04/22/17 showed normal LV systolic function, very high central venous pressure HTN - On Norvasc 10 mg daily, Metoprol succinate 25 mg qhs GERD -PPI Chronic Afib - Eliquis was on hold due to thoracentesis - Resumed Eliquis on 04/23/17 Renal cyst hx BPH with urinary retention, self straight cath at home 4 times a day -perry DC'd, started straight cath Dyslipedemia -c/w statin Anxiety - Atarax Constipation: - Holding lactulose Insomnia: - continue Trazodone DVT prophylaxis: SCD/TEDS, and Eliquis Fluid, electrolyte, nutrition: Low fat and low cholesterol diet, 2G Na, 2 fluid restriction Disposition: Waiting for clinically improve with lasix and antibiotics. GME ATTESTATION My preceptor for this patient encounter was physically present in the building during the encounter and was fully available. As needed, all aspects of the patient interview, examination, medical decision making process, and medical care plan development were reviewed and approved by the preceptor. Preceptor is aware and concurs with the plan as stated in the body of this note and will attest to such by his/her cosignature. VS,Fishbone, I+O VS, Fishbone, I+O Laboratory Tests 04/29/17 12:02 Red Blood Count 3.38 L, Mean Corpuscular Volume 93.5, Mean Corpuscular Hemoglobin 29.6, Mean Corpuscular Hemoglobin Concent 31.6 L, Red Cell Distribution Width 14.0, Calcium Level 7.9 L Vital Signs Date Time Temp Pulse Resp B/P (MAP) Pulse Ox O2 Delivery O2 Flow Rate FiO2 04/29/17 08:29 Nasal Cannula 4.0 04/29/17 08:14 68 121/57 04/29/17 06:00 97.8 18 96 I&O- Last 24 Hours up to 6 AM 04/30/17 06:00 Intake Total 470 ml Output Total 750 ml Balance -280 ml KRISTEN GRAVES DO Apr 29, 2017 13:54
[2017-04-29 14:00] VITALS: BP 124/61
[2017-04-29 18:00] VITALS: BP 134/62
[2017-04-29] MEDS: SIMVASTATIN 20 MG TAB PO SCH (21:15)
[2017-04-29] MEDS: traZODone 50 MG TAB PO SCH (21:16)
[2017-04-29] MEDS: ALPRAZolam 0.5 MG TAB PO SCH (21:16)
[2017-04-29] MEDS: METOPROLOL SUCC *XL* 25MG TAB (TopROL *XL*) PO SCH (21:17)
[2017-04-29 22:00] VITALS: BP 145/67
[2017-04-30] VITALS (7 sets, daily range): BP systolic 122–145; BP diastolic 58–75
[2017-04-30] MEDS: IPRATROPIUM 0.5MG/ALBUTEROL 2.5MG INH SOL UD 3ML (DUONEB)(J7620) NEB SCH ×6 (04:00→23:10)
[2017-04-30] MEDS: FUROSEMIDE 40 MG/4 ML VIAL (J1940) IV SCH ×5 (06:19→23:52)
[2017-04-30 07:08] LABS: MEAN CORPUSCULAR HEMOGLOBIN 28.3 pg (27.0-33.0); MEAN CORPUSCULAR VOLUME 94.2 fl (80.0-96.0); PLATELET COUNT, AUTOMATED 197 10^3/uL (150-450); POS COUNT POS FLAG; POSITIVE MORPH POS FLAG; RED CELL DISTRIBUTION WIDTH 14.2 % (11.5-14.5); WHITE BLOOD COUNT 5.7 10^3/uL (4.0-10.0)
[2017-04-30 07:09] LABS: ADD MANUAL DIFFER YES; DIFF SLIDE NUMBER 88
[2017-04-30 07:27] LABS: ANION GAP 3 MEQ/L (8-16); BLOOD UREA NITROGEN 19 MG/DL (7-18); CALCIUM LEVEL 8.4 MG/DL (8.8-10.2); CARBON DIOXIDE LEVEL 40 MEQ/L (21-32); CHLORIDE LEVEL 102 MEQ/L (98-107); CREATININE FOR GFR 0.78 MG/DL (0.70-1.30); GLOMERULAR FILTRATION RATE > 60.0 (>42); GLUCOSE, FASTING 73 MG/DL (83-110); POTASSIUM SERUM 4.1 MEQ/L (3.5-5.1); SODIUM LEVEL 145 MEQ/L (136-145)
[2017-04-30] MEDS: ADVAIR HFA 115/21MCG INHALER INH SCH ×2 (07:44→20:57)
[2017-04-30] MEDS: TIOTROPIUM INHALER/CAPSULE (SPIRIVA) INH SCH (07:44)
[2017-04-30 08:19] LABS: EOSINOPHILS 2 % (0-5)
[2017-04-30 08:20] LABS: ANISOCYTOSIS 1+
[2017-04-30] MEDS ORDERED: cefTRIAXone SOD 2 GM in D5W 50 ML IV SCH (09:00)
[2017-04-30] MEDS ORDERED: CEFDINIR 300 MG CAP (OMNICEF) PO SCH (09:00)
[2017-04-30] MEDS: ASPIRIN 81 MG ENTERIC TAB PO SCH (09:18)
[2017-04-30] MEDS: OMEPRAZOLE 20 MG CAP PO SCH (09:18)
[2017-04-30] MEDS: guaiFENesin ER 600 MG TAB PO SCH ×2 (09:18→20:40)
[2017-04-30] MEDS: THIAMINE 100 MG TAB PO SCH (09:18)
[2017-04-30] MEDS: amLODIPine 10 MG TAB PO SCH (09:18)
[2017-04-30] MEDS: predniSONE 20 MG TAB PO SCH (09:18)
[2017-04-30] MEDS: TAMSULOSIN 0.4 MG CAP PO SCH (09:18)
[2017-04-30] MEDS: APIXABAN 5 MG TAB (ELIQUIS) PO SCH ×2 (09:18→20:40)
[2017-04-30] MEDS: hydrOXYzine 50 MG TAB PO SCH ×3 (09:18→20:41)
[2017-04-30] MEDS: MIRALAX *UNIT DOSE* 17GM PACKET PO SCH (09:19)
--- NOTE | 2017-04-30 10:39 | CCN ---
DATE OF SERVICE: 04/30/2017 Mr. Damico states today he is feeling better and feels that he is breathing better. He still does have some shortness of breath but states that it is overall improved. He denies any chest pain. He continues to diurese well with Lasix and is down about 2.3 liters since the Lasix was initiated. He notes that overall less lower extremity edema. He denies any chest pain or abdominal pain. He denies fevers or chills. He denies any new issues. PHYSICAL EXAMINATION: Temperature 97.5, pulse 67, respiratory rate 18, blood pressure 128/66, pulse oximetry 98% on 4 liters by nasal cannula. General: The patient is alert and oriented times three. No acute distress. Head is normocephalic, atraumatic. Neck is supple with no tracheal deviation. No obvious jugular venous distention (JVD). Chest: Diminished breath sounds in all thompson, most diminished in the right lower lobe. Still some dullness to percussion at the right base. Scattered wheezing and rhonchi throughout all lung thompson. Abdomen: Positive bowel sounds, soft, nontender. Extremities: No significant lower extremity edema. LABORATORIES: WBC 5.7, hemoglobin 8.8, hematocrit 29.3, platelets 197. Sodium 145, potassium 4.1, chloride 102, carbon dioxide 40, BUN 19, creatinine 0.78, glucose 73, calcium 8.4. ASSESSMENT AND PLAN: 1. Right pleural effusion. [place] to be likely secondary to heart failure. The patient is being diuresed with intravenous (IV) Lasix and is down about 2.3 liters since this was initiated. He initially came in with a fever and did have Streptococcus pneumococcal bacteremia. There is a question of the right pleural effusion being an empyema; however, he has been afebrile, and his white blood cell count has trended down. He had been on antibiotics for approximately 8 or 9 days, and antibiotics can be discontinued. If pleural effusion persists or if the patient does become febrile, then consider thoracentesis. 2. Lung nodule. The patient is followed by Dr. Moore as an outpatient. 3. Chronic obstructive pulmonary disease (COPD). Spiriva was added. The patient is on Advair. The patient is using his acapella. He follows with Dr. Moore for his COPD as an outpatient.
--- NOTE | 2017-04-30 11:11 | IPNPDOC ---
Text Note Date of Service The patient was seen on 04/30/17. NOTE Subjective: Patient is a 76 year old male with a PMHx of COPD, CHF, HTN, GERD, chronic a fib, BPH, renal cyst, dyslipidemia presented with shortness of breath with consolidation on left side and large pleural effusion on right side. Patient seen and examined at bedside. He is feeling much better today again. Denies fever/chill, chest pain, worsening sob. Admits to constipation, however he would like to try current stool softener first before try something stronger. Denies any abdominal pain, nausea, vomiting, diarrhea, problems with urine or blood in urine or stool. Denies any other current new complaints. Objective: Vitals (See below) General: elderly male, lying in bed, not in apparent distress, AAOx3 HEENT: NC, AT, EOMI CVS: irregular heart beat, difficult to auscultation due to increased AP diameter Lungs: reduced breathing sound at base of right lung, improved compared to before Abdomen: Soft, ND, NT, no peritoneal signs Extremities: trace pitting edema, 1+ at ankles Skin: warm and dry Neuro: CN 2- 12 intact, no focal neurological deficit Assessment and plan: Dyspnea (Cough and SOB) - likely multifactorial; 2/2 large right sided pleural effusion, COPD exacerbation, Community acquired pneumonia, Fluid overload 2/2 CHF - Dr. Cordova from pulmonology was consulted we appreciate her help, recommend to increase diurese patient for a net negative 1 L per day - s/p US guided thoracentesis with IR, removed 2 L dark yellow fluid, pleural study using light's criteria shows it was exudative, patient has been improving clinically - Recurrence less likely empyema more likely from CHF - Pleural fluid culture showed no growth 04/24/17 and cytology showed purulent inflammation consistent with empyema no malignancy 04/23/17 - c/w Mucinex - c/w Supplemental oxygen - c/w steroid taper (currently at 20 mg daily), he was on steroid at home (10 mg daily) - c/w Lasix 40 IV q6h to improve pleural effusion - Possible repeat thoracentesis if pleural effusion doesn't reduce with diuresis or if patient develops a fever - s/p Rocephin for 8 days; will stop antibiotics currently Bacteremia likely from pulmonary etiology - Blood cx x2 came back 04/24/17 Strep Pneumo, which was sensitive Ceftriaxone - Echo negative for vegetation - repeat blood cultures negative - s/p ceftriaxone 04/22/17 , Completed 8 day course Acute hypoxic respiratory failure with left lower lobe pneumonia possible community acquired with parapneumonic effusion - He was on ventur mas 50% FiO2 and was only saturating 87% on admission, he was on 2L NC at home, - Currently on 4L NC to maintain saturation - Blood cx came back 04/24/17 Strep Pneumo - D/C Vanco 04/24/17 - DuoNebs - Advair - See above s/p Leukocytosis - likely 2/2 infectious process, possibly 2/2 reactive process (Corticosteroids) - Presented with leukocytosis improving - CRP also improving s/p Hypokalemia - Resolved Acute exacerbation on Chronic COPD with chronic hypoxic respiratory failure on 4L O2 at home 24 hours a day -Continue steroid taper Cardiac risk - Continue ASA HFpEF - Back on home Lasix 40 mg daily 04/28/17 from lasix 20 mg daily -In/Outs monitored - Echo 04/22/17 showed normal LV systolic function, very high central venous pressure HTN - On Norvasc 10 mg daily, Metoprol succinate 25 mg qhs GERD -PPI Chronic Afib - c/w Eliquis Renal cyst hx BPH with urinary retention, self straight cath at home 4 times a day -amador DC'd, started straight cath Dyslipedemia -c/w statin Anxiety - Atarax Constipation: - Holding lactulose Insomnia: - continue Trazodone DVT prophylaxis: SCD/TEDS and on full anticoagulation with Eliquis Fluid, electrolyte, nutrition: Low fat and low cholesterol diet, 2G Na, 2 fluid restriction Disposition: Waiting for clinically improve with lasix and antibiotics. GME ATTESTATION My preceptor for this patient encounter was physically present in the building during the encounter and was fully available. As needed, all aspects of the patient interview, examination, medical decision making process, and medical care plan development were reviewed and approved by the preceptor. Preceptor is aware and concurs with the plan as stated in the body of this note and will attest to such by his/her cosignature. ATTENDING NOTE I, Junaid Navarrete, have both independently examined this patient as well as reviewed the documentation. I have discussed in detail with the resident the findings and plan of treatment as documented in the residents documentation. I will continue to follow the patient and offer further guidance to the patients care as necessary during this hospital stay. VS,Katerinae, I+O VS, Fishbone, I+O Laboratory Tests 04/29/17 12:02 Red Blood Count 3.38 L, Mean Corpuscular Volume 93.5, Mean Corpuscular Hemoglobin 29.6, Mean Corpuscular Hemoglobin Concent 31.6 L, Red Cell Distribution Width 14.0, Calcium Level 7.9 L 04/30/17 06:44 Red Blood Count 3.11 L, Mean Corpuscular Volume 94.2, Mean Corpuscular Hemoglobin 28.3, Mean Corpuscular Hemoglobin Concent 30.0 L, Red Cell Distribution Width 14.2, Calcium Level 8.4 L Vital Signs Date Time Temp Pulse Resp B/P (MAP) Pulse Ox O2 Delivery O2 Flow Rate FiO2 04/30/17 06:00 97.5 67 18 128/66 (86) 98 Nasal Cannula 4.0 97.5 I&O- Last 24 Hours up to 6 AM 05/01/17 06:00 Intake Total 600 ml Output Total 0 ml Balance 600 ml KRISTEN GRAVES DO Apr 30, 2017 11:11 JUNAID NAVARRETE MD Apr 30, 2017 13:45
--- NOTE | 2017-04-30 15:18 | REP ---
Chest two views HISTORY: Pleural effusion Comparison: 04/28/2017 Increased density is present in the lower lobes consistent with bibasilar atelectasis or infiltrates greater on the right than on the left unchanged compared to the previous study. Pleural effusions are present greater on the right than on the left unchanged compared to the previous study. The heart is normal in size. The pulmonary vasculature is normal in appearance. The bony structure is intact. IMPRESSION: 1. Bibasilar atelectasis or infiltrates greater on the right than on the left unchanged compared to the previous study. 2. Bilateral pleural effusions greater on the right than on the left unchanged compared to the previous study. Signed by Diego Trejo MD 04/30/2017 03:10 P
[2017-04-30] MEDS: ALPRAZolam 0.5 MG TAB PO SCH (20:40)
[2017-04-30] MEDS: traZODone 50 MG TAB PO SCH (20:40)
[2017-04-30] MEDS: METOPROLOL SUCC *XL* 25MG TAB (TopROL *XL*) PO SCH (20:41)
[2017-04-30] MEDS: SIMVASTATIN 20 MG TAB PO SCH (20:41)
[2017-05-01 02:00] VITALS: BP 130/63
[2017-05-01] MEDS: IPRATROPIUM 0.5MG/ALBUTEROL 2.5MG INH SOL UD 3ML (DUONEB)(J7620) NEB SCH ×5 (03:03→20:00)
[2017-05-01 06:00] VITALS: BP 132/63
[2017-05-01] MEDS: FUROSEMIDE 40 MG/4 ML VIAL (J1940) IV SCH ×3 (06:09→17:05)
[2017-05-01 06:36] LABS: MEAN CORPUSCULAR HEMOGLOBIN 28.5 pg (27.0-33.0); MEAN CORPUSCULAR HGB CONC 30.2 g/dl (32.0-36.5); MEAN CORPUSCULAR VOLUME 94.6 fl (80.0-96.0); PLATELET COUNT, AUTOMATED 198 10^3/uL (150-450); RED CELL DISTRIBUTION WIDTH 14.3 % (11.5-14.5); WHITE BLOOD COUNT 6.1 10^3/uL (4.0-10.0)
[2017-05-01 06:42] LABS: ADD MANUAL DIFFER YES; DIFF SLIDE NUMBER 53; POS COUNT POS FLAG; POSITIVE MORPH POS FLAG
[2017-05-01 07:04] LABS: ANION GAP 4 MEQ/L (8-16); BLOOD UREA NITROGEN 19 MG/DL (7-18); CALCIUM LEVEL 8.1 MG/DL (8.8-10.2); CARBON DIOXIDE LEVEL 38 MEQ/L (21-32); CHLORIDE LEVEL 102 MEQ/L (98-107); CREATININE FOR GFR 0.81 MG/DL (0.70-1.30); GLOMERULAR FILTRATION RATE > 60.0 (>42); GLUCOSE, FASTING 76 MG/DL (83-110); POTASSIUM SERUM 3.9 MEQ/L (3.5-5.1); SODIUM LEVEL 144 MEQ/L (136-145)
[2017-05-01] MEDS: TIOTROPIUM INHALER/CAPSULE (SPIRIVA) INH SCH (07:36)
[2017-05-01] MEDS: ADVAIR HFA 115/21MCG INHALER INH SCH ×2 (07:36→19:51)
[2017-05-01] MEDS: MIRALAX *UNIT DOSE* 17GM PACKET PO SCH (08:22)
[2017-05-01] MEDS: TAMSULOSIN 0.4 MG CAP PO SCH (08:22)
[2017-05-01] MEDS: amLODIPine 10 MG TAB PO SCH (08:22)
[2017-05-01] MEDS: APIXABAN 5 MG TAB (ELIQUIS) PO SCH ×2 (08:22→21:08)
[2017-05-01] MEDS: guaiFENesin ER 600 MG TAB PO SCH ×2 (08:22→21:07)
[2017-05-01] MEDS: hydrOXYzine 50 MG TAB PO SCH ×3 (08:23→21:08)
[2017-05-01] MEDS: ASPIRIN 81 MG ENTERIC TAB PO SCH (08:23)
[2017-05-01] MEDS: OMEPRAZOLE 20 MG CAP PO SCH (08:23)
[2017-05-01] MEDS: predniSONE 20 MG TAB PO SCH (08:23)
[2017-05-01] MEDS: THIAMINE 100 MG TAB PO SCH (08:23)
[2017-05-01] MEDS: POLYVINYL ALCOHOL OPHTH SOLN 15 ML(LIQUITEARS) OU PRN (08:25)
--- NOTE | 2017-05-01 08:31 | IPN ---
DATE: 05/01/2017. Mr. Damico states that he is feeling better today. He notes his shortness of breath continues to improve and he denies any new issues. The patient denies chest pain or abdominal pain. He is continuing to diurese well on IV Lasix and is down approximately 4 liters since the Lasix was initiated. PHYSICAL EXAMINATION Vitals: Temperature 97.8, pulse 80, respiratory rate 18, blood pressure is 132/63, pulse ox 98% on 4 liters by nasal cannula. GENERAL: The patient is alert and oriented. He is sitting upright and able to speak in complete sentences. HEENT: Head is normocephalic, atraumatic. Neck is supple. No tracheal deviation. No obvious jugular venous distention (JVD). CHEST: Diminished breath sounds in all thompson. The patient still has some dullness to percussion at the right base. No wheezes, rales, rhonchi or crackles noted. ABDOMEN: Positive bowel sounds, soft, nontender. No rebound or guarding. EXTREMITIES: The patient with trace bilateral lower extremity edema. LABORATORY DATA WBC 6.1, hemoglobin 8.9, hematocrit 29.5, platelet 198. Sodium 144, potassium 3.9, chloride 102, carbon dioxide 38, BUN 19, creatinine 0.81, glucose 76, calcium 8.1. Chest x-ray was independently reviewed and shows a moderate right pleural effusion and small left pleural effusion with atelectasis versus infiltrates in the bilateral bases and overall appears unchanged compared to previous chest x-ray from 04/28/2017. ASSESSMENT AND PLAN: 1. Pleural effusion, right greater than left. Right pleural effusion is felt to be likely secondary to heart failure. The patient is on IV Lasix and has been diuresing well. He is down about 4 liters since Lasix was initiated. The patient initially came in with fever and did have Streptococcus pneumococcal bacteremia and there was question of the right pleural effusion being empyema; however, he has since been afebrile with WBC that has been trending down and his white count has remained within normal limits. He had received ceftriaxone for 8 days and this has been discontinued. His WBC has remained within normal limits since the antibiotic was discontinued. PLAN: 1. If the pleural effusion persists or if the patient does become febrile that thoracentesis may be considered. 2. Lung nodule. The patient is followed by Dr. Moore as an outpatient for the lung nodule. 3. Chronic obstructive pulmonary disease (COPD). He is on Spiriva and Advair. He uses his acapella. MTDD
--- NOTE | 2017-05-01 10:44 | IPNPDOC ---
Text Note Date of Service The patient was seen on 05/01/17. NOTE Subjective: Patient is a 76 year old male with a PMHx of COPD, CHF, DLP, HTN, Chronic A. fib, BPH, Renal cyst, and GERD, who presented to ER with SOB and was found to have a consolidation on left side and large pleural effusion on right side. Patient seen and examined at bedside. He is feeling good, admits to breathing better. Denies fever/chill, or chest pain. Denies any abdominal pain, nausea, vomiting, diarrhea, problems with urine or blood in urine or stool. Denies any other current new complaints. Objective: Vitals (See below) General: elderly male, lying in bed, not in apparent distress, AAOx3 HEENT: NC, AT, EOMI CVS: irregular heart beat, difficult to auscultation due to increased AP diameter Lungs: reduced breathing sound at base of right lung Abdomen: Soft, ND, NT, no peritoneal signs Extremities: trace pitting edema, 1+ at ankles Skin: warm and dry Neuro: CN 2- 12 intact, no focal neurological deficit Assessment and plan: Dyspnea (Cough and SOB) - likely multifactorial; 2/2 large right sided pleural effusion, COPD exacerbation, Community acquired pneumonia, Fluid overload 2/2 CHF - Clinically improving - Physical with still diminished lung sounds at right base - s/p US guided thoracentesis; Removed 2000cc of Exudative material - Pleural fluid culture 04/24: Negative; - Pathology 04/23: No evidence of malignancy - s/p Rocephin for 8 days - c/w Supplemental oxygen - c/w Steroid taper (currently at 10 mg daily, which is his home dose) - c/w Lasix 40 IV q6h to improve pleural effusion - Dr. Cordova (Pulmonology) consulted; Appreciate their input; no thoracentesis at this point Bacteremia - likely 2/2 PNA - Blood culture 04/24: (2 of 2) Strep Pneumo - Sensitive Ceftriaxone - Echo negative for vegetation - repeat blood cultures negative - s/p ceftriaxone 04/22/17 , Completed 8 day course Acute hypoxic respiratory failure with left lower lobe pneumonia possible community acquired with parapneumonic effusion - He was on ventur mas 50% FiO2 and was only saturating 87% on admission, he was on 2L NC at home, - Currently on 4L NC to maintain saturation - Blood cx came back 04/24/17 Strep Pneumo - D/C Vanco 04/24/17 - DuoNebs - Advair - See above s/p Leukocytosis - likely 2/2 infectious process, possibly 2/2 reactive process (Corticosteroids) - Presented with leukocytosis improving - CRP also improving s/p Hypokalemia - Resolved Acute exacerbation on Chronic COPD with chronic hypoxic respiratory failure on 4L O2 at home 24 hours a day -Continue steroid taper Cardiac risk - Continue ASA HFpEF - Back on home Lasix 40 mg daily 04/28/17 from lasix 20 mg daily - In/Outs monitored - Echo 04/22/17 showed normal LV systolic function, very high central venous pressure HTN - On Norvasc 10 mg daily, Metoprol succinate 25 mg qhs GERD -PPI Chronic Afib - c/w Eliquis Renal cyst hx BPH with urinary retention, self straight cath at home 4 times a day -amador DC'd, started straight cath Dyslipedemia -c/w statin Anxiety - Atarax Constipation - Holding lactulose Insomnia - continue Trazodone DVT prophylaxis - SCD/TEDS and on full anticoagulation with Eliquis Fluid, electrolyte, nutrition: Low fat and low cholesterol diet, 2G Na, 2 fluid restriction Disposition: - Waiting for clinically improve with diuresis GME ATTESTATION My preceptor for this patient encounter was physically present in the building during the encounter and was fully available. As needed, all aspects of the patient interview, examination, medical decision making process, and medical care plan development were reviewed and approved by the preceptor. Preceptor is aware and concurs with the plan as stated in the body of this note and will attest to such by his/her cosignature. ATTENDING NOTE I, Junaid Navarrete, have both independently examined this patient as well as reviewed the documentation. I have discussed in detail with the resident the findings and plan of treatment as documented in the residents documentation. I will continue to follow the patient and offer further guidance to the patients care as necessary during this hospital stay. VS,[place]bone, I+O VS, Fishbone, I+O Laboratory Tests 04/30/17 12:16 05/01/17 06:14 Red Blood Count 3.12 L, Mean Corpuscular Volume 94.6, Mean Corpuscular Hemoglobin 28.5, Mean Corpuscular Hemoglobin Concent 30.2 L, Red Cell Distribution Width 14.3, Calcium Level 8.1 L Vital Signs Date Time Temp Pulse Resp B/P (MAP) Pulse Ox O2 Delivery O2 Flow Rate FiO2 05/01/17 08:22 88 132/63 05/01/17 06:00 97.8 18 98 Nasal Cannula 4.0 I&O- Last 24 Hours up to 6 AM 05/02/17 06:00 Intake Total 120 ml Output Total 1250 ml Balance -1130 ml KRISTEN GRAVES DO May 01, 2017 10:44 JUNAID NAVARRETE MD May 01, 2017 15:09
[2017-05-01 14:00] VITALS: BP 121/58
[2017-05-01 18:00] VITALS: BP 133/60
[2017-05-01] MEDS: SIMVASTATIN 20 MG TAB PO SCH (21:08)
[2017-05-01] MEDS: METOPROLOL SUCC *XL* 25MG TAB (TopROL *XL*) PO SCH (21:08)
[2017-05-01] MEDS: traZODone 50 MG TAB PO SCH (21:08)
[2017-05-01] MEDS: ALPRAZolam 0.5 MG TAB PO SCH (21:09)
[2017-05-01 22:00] VITALS: BP 140/69
[2017-05-02] MEDS: IPRATROPIUM 0.5MG/ALBUTEROL 2.5MG INH SOL UD 3ML (DUONEB)(J7620) NEB SCH ×7 (00:17→23:11)
[2017-05-02] MEDS: FUROSEMIDE 40 MG/4 ML VIAL (J1940) IV SCH ×4 (00:28→17:32)
[2017-05-02 02:00] VITALS: BP 124/65
[2017-05-02 06:00] VITALS: BP 116/59
[2017-05-02 07:22] LABS: MEAN CORPUSCULAR HEMOGLOBIN 28.9 pg (27.0-33.0); MEAN CORPUSCULAR HGB CONC 30.8 g/dl (32.0-36.5); MEAN CORPUSCULAR VOLUME 93.8 fl (80.0-96.0); PLATELET COUNT, AUTOMATED 214 10^3/uL (150-450); RED CELL DISTRIBUTION WIDTH 14.6 % (11.5-14.5); WHITE BLOOD COUNT 5.6 10^3/uL (4.0-10.0)
[2017-05-02 07:23] LABS: POS COUNT POS FLAG; POSITIVE MORPH POS FLAG
[2017-05-02 07:24] LABS: ADD MANUAL DIFFER YES; DIFF SLIDE NUMBER 35
[2017-05-02] MEDS: TIOTROPIUM INHALER/CAPSULE (SPIRIVA) INH SCH (07:36)
[2017-05-02] MEDS: ADVAIR HFA 115/21MCG INHALER INH SCH ×2 (07:37→19:35)
[2017-05-02 07:45] LABS: ANION GAP 1 MEQ/L (8-16); BLOOD UREA NITROGEN 19 MG/DL (7-18); CALCIUM LEVEL 8.2 MG/DL (8.8-10.2); CARBON DIOXIDE LEVEL 41 MEQ/L (21-32); CHLORIDE LEVEL 99 MEQ/L (98-107); CREATININE FOR GFR 0.84 MG/DL (0.70-1.30); GLOMERULAR FILTRATION RATE > 60.0 (>42); GLUCOSE, FASTING 65 MG/DL (83-110); POTASSIUM SERUM 3.8 MEQ/L (3.5-5.1); SODIUM LEVEL 141 MEQ/L (136-145)
[2017-05-02 07:47] LABS: BANDS 1 % (< 11); EOSINOPHILS 3 % (0-5)
[2017-05-02 07:48] LABS: ANISOCYTOSIS 1+; HYPOCHROMASIA 1+
[2017-05-02] MEDS: POLYVINYL ALCOHOL OPHTH SOLN 15 ML(LIQUITEARS) OU PRN (08:19)
--- NOTE | 2017-05-02 08:27 | IPN ---
DATE: 05/02/2017 Mr. Damico states he is doing much better. He is currently doing chest physiotherapy (PT). He states his breathing is better and he denies any current shortness of breath. He denies any chest pain. The patient denies fevers or chills. He is continuing to diurese well on IV Lasix. PHYSICAL EXAMINATION: Vitals: Temperature 98.0, pulse 88, respiratory rate 20, blood pressure is 116/59, and pulse oximetry is 96% on 4 liters by nasal cannula. General: The patient is alert and oriented. He is sitting up in bed with chest PT device on. He is able to speak in complete sentences. HEENT: Head is normocephalic, atraumatic. Neck is supple. No tracheal deviation. No obvious jugular venous distention (JVD). Chest: Diminished breath sounds in all thompson, particularly over the right base. There is still some dullness to percussion at the right base. No wheezes, rales , rhonchi or crackles noted. Heart: Regular rate and rhythm. Abdomen: Positive bowel sounds, soft, nontender. No rebound or guarding. Extremities: No lower extremity edema. LABORATORY DATA: WBC 5.6, hemoglobin 8.8, hematocrit 28.6, platelets 214. Sodium 141, potassium 3.8, chloride 99, carbon dioxide 41, BUN 19, creatinine 0.84, glucose 65, calcium is 8.2. ASSESSMENT/PLAN: 1. Right pleural effusion. This is felt to be secondary to heart failure. He is on IV Lasix for net negative and has been diuresing well. The patient is down about 6-1/2 liters since starting the IV Lasix. The patient initially did come in with a fever and has Streptococcus pneumococcal bacteremia and there was a question of the right pleural effusion being empyema; however, he has been afebrile and his WBC has trended down. White counts have remained within normal limits. He did received ceftriaxone for 8 days, which was discontinued. His WBC has remained within normal limits since the antibiotic was discontinued. He is doing well with chest PT. 2. Lung nodule. The patient is followed by Dr. Moore as an outpatient for the lung nodule. 3. Chronic obstructive pulmonary disease. The patient on Spiriva and Advair. He has been using his Acapella. Pulmonary/Critical Care will sign off now, but please feel free to call if there are any additional issues. MTDD
[2017-05-02 09:43] VITALS: BP 127/60
--- NOTE | 2017-05-02 11:32 | IPNPDOC ---
Text Note Date of Service The patient was seen on 05/02/17. NOTE Subjective: Patient is a 76 year old male with a PMHx of COPD, CHF, DLP, HTN, Chronic A. fib, BPH, Renal cyst, and GERD, who presented to ER with SOB and was found to have a consolidation on left side and large pleural effusion on right side. Patient seen and examined at bedside. Patient is feeling well, he was happy to hear he maybe go home in a few days. Denies fever/chill, or chest pain. Denies any abdominal pain, nausea, vomiting, diarrhea, problems with urine or blood in urine or stool. Denies any other current new complaints. Objective: Vitals (See below) General: elderly male, lying in bed, not in apparent distress, AAOx3 HEENT: NC, AT, EOMI CVS: irregular heart beat, difficult to auscultation due to increased AP diameter Lungs: improved breathing sound at base of right lung Abdomen: Soft, ND, NT, no peritoneal signs Extremities: trace pitting edema b/l Skin: warm and dry Neuro: CN 2- 12 intact, no focal neurological deficit Assessment and plan: Dyspnea (Cough and SOB) - likely multifactorial; 2/2 large right sided pleural effusion, COPD exacerbation, Community acquired pneumonia, Fluid overload 2/2 CHF - Clinically improving - Physical with still diminished lung sounds at right base - s/p US guided thoracentesis; Removed 2000cc of Exudative material; less likely Empyema - Pleural fluid culture 04/24: Negative; - Pathology 04/23: No evidence of malignancy - s/p Rocephin for 8 days - c/w Supplemental oxygen - c/w Steroid taper (currently at 10 mg daily, which is his home dose) - c/w Lasix 40 IV q6h to improve pleural effusion - Dr. Cordova (Pulmonology) consulted; Appreciate their input; no thoracentesis at this point - Will repeat CXR tomorrow Bacteremia - likely 2/2 PNA - Blood culture 04/24: (2 of 2) Strep Pneumo - Sensitive Ceftriaxone - Echo negative for vegetation - repeat blood cultures negative - s/p ceftriaxone 04/22/17 , Completed 8 day course Acute hypoxic respiratory failure with left lower lobe pneumonia possible community acquired with parapneumonic effusion - He was on venti mask 50% FiO2 and was only saturating 87% on admission, he was on 2L NC at home, - Currently on 4L NC to maintain saturation - Blood cx came back 04/24/17 Strep Pneumo - D/C Vanco 04/24/17 - DuoNebs - Advair - See above s/p Leukocytosis - likely 2/2 infectious process, possibly 2/2 reactive process (Corticosteroids) - Presented with leukocytosis improving - CRP also improving s/p Hypokalemia - Resolved Acute exacerbation on Chronic COPD with chronic hypoxic respiratory failure on 4L O2 at home 24 hours a day -Continue steroid taper Cardiac risk - Continue ASA HFpEF - Back on home Lasix 40 mg daily 04/28/17 from lasix 20 mg daily - In/Outs monitored - Echo 04/22/17 showed normal LV systolic function, very high central venous pressure HTN - On Norvasc 10 mg daily, Metoprol succinate 25 mg qhs GERD -PPI Chronic Afib - c/w Eliquis Renal cyst hx BPH with urinary retention - Patient self catheterizes at home 4 times a day - Nava DC'd, started straight cath DLP -c/w statin Anxiety - Atarax Constipation - Holding lactulose Insomnia - continue Trazodone DVT prophylaxis - SCD/TEDS and on full anticoagulation with Eliquis Fluid, electrolyte, nutrition: Low fat and low cholesterol diet, 2G Na, 2 fluid restriction Disposition: - Waiting for clinically improve with diuresis, will repeat CXR, appreciate Dr. Cordova' help GME ATTESTATION My preceptor for this patient encounter was physically present in the building during the encounter and was fully available. As needed, all aspects of the patient interview, examination, medical decision making process, and medical care plan development were reviewed and approved by the preceptor. Preceptor is aware and concurs with the plan as stated in the body of this note and will attest to such by his/her cosignature. ATTENDING NOTE I, Junaid Navarrete, have both independently examined this patient as well as reviewed the documentation. I have discussed in detail with the resident the findings and plan of treatment as documented in the residents documentation. I will continue to follow the patient and offer further guidance to the patients care as necessary during this hospital stay. VS,Fishbone, I+O VS, Fishbone, I+O Laboratory Tests 05/02/17 07:02 Red Blood Count 3.05 L, Mean Corpuscular Volume 93.8, Mean Corpuscular Hemoglobin 28.9, Mean Corpuscular Hemoglobin Concent 30.8 L, Red Cell Distribution Width 14.6 H, Calcium Level 8.2 L Vital Signs Date Time Temp Pulse Resp B/P (MAP) Pulse Ox O2 Delivery O2 Flow Rate FiO2 05/02/17 09:43 98.3 70 20 127/60 (82) 95 Nasal Cannula 4.0 I&O- Last 24 Hours up to 6 AM 05/03/17 06:00 Intake Total 180 ml Output Total 0 ml Balance 180 ml KRISTEN GRAVES DO May 02, 2017 11:32 JUNAID NAVARRETE MD May 02, 2017 11:46
[2017-05-02] MEDS: predniSONE 10 MG TAB PO SCH (11:47)
[2017-05-02] MEDS: TAMSULOSIN 0.4 MG CAP PO SCH (11:47)
[2017-05-02] MEDS: amLODIPine 10 MG TAB PO SCH (11:47)
[2017-05-02] MEDS: THIAMINE 100 MG TAB PO SCH (11:48)
[2017-05-02] MEDS: APIXABAN 5 MG TAB (ELIQUIS) PO SCH ×2 (11:48→21:22)
[2017-05-02] MEDS: guaiFENesin ER 600 MG TAB PO SCH ×2 (11:48→21:21)
[2017-05-02] MEDS: MIRALAX *UNIT DOSE* 17GM PACKET PO SCH (11:48)
[2017-05-02] MEDS: hydrOXYzine 50 MG TAB PO SCH ×3 (11:48→21:22)
[2017-05-02] MEDS: OMEPRAZOLE 20 MG CAP PO SCH (11:48)
[2017-05-02] MEDS: ASPIRIN 81 MG ENTERIC TAB PO SCH (11:48)
[2017-05-02 13:30] VITALS: BP 112/58
[2017-05-02 18:00] VITALS: BP 136/60
[2017-05-02] MEDS: ALPRAZolam 0.5 MG TAB PO SCH (21:22)
[2017-05-02] MEDS: SIMVASTATIN 20 MG TAB PO SCH (21:22)
[2017-05-02] MEDS: METOPROLOL SUCC *XL* 25MG TAB (TopROL *XL*) PO SCH (21:23)
[2017-05-02] MEDS: traZODone 50 MG TAB PO SCH (21:23)
[2017-05-02 22:00] VITALS: BP 151/71
[2017-05-03] VITALS (7 sets, daily range): BP systolic 112–146; BP diastolic 59–72
[2017-05-03] MEDS: FUROSEMIDE 40 MG/4 ML VIAL (J1940) IV SCH ×5 (00:42→20:28)
[2017-05-03] MEDS: IPRATROPIUM 0.5MG/ALBUTEROL 2.5MG INH SOL UD 3ML (DUONEB)(J7620) NEB SCH ×5 (03:30→19:27)
[2017-05-03 06:42] LABS: BASO % 0.2 % (0.0-1.0); EOS # 0.2 10^3/uL (0.0-0.50); EOS % 2.5 % (0.0-3.0); IMMATURE GRANULOCYTE % 4.7 % (0-0); LYMPH # 1.1 10^3/uL (1.5-4.5); LYMPH % 17.8 % (24.0-44.0); MEAN CORPUSCULAR HEMOGLOBIN 29.2 pg (27.0-33.0); MEAN CORPUSCULAR HGB CONC 31.2 g/dl (32.0-36.5); MEAN CORPUSCULAR VOLUME 93.4 fl (80.0-96.0); MONO # 0.6 10^3/uL (0.0-0.8); MONO % 10.1 % (0.0-5.0); NEUTROPHILS # 3.9 10^3/uL (1.8-7.7); NEUTROPHILS % 64.7 % (36.0-66.0); PLATELET COUNT, AUTOMATED 214 10^3/uL (150-450); RED CELL DISTRIBUTION WIDTH 14.5 % (11.5-14.5)
[2017-05-03] MEDS: ADVAIR HFA 115/21MCG INHALER INH SCH ×2 (07:03→19:26)
[2017-05-03 07:04] LABS: ANION GAP 4 MEQ/L (8-16); BLOOD UREA NITROGEN 18 MG/DL (7-18); CARBON DIOXIDE LEVEL 38 MEQ/L (21-32); CHLORIDE LEVEL 98 MEQ/L (98-107); CREATININE FOR GFR 0.98 MG/DL (0.70-1.30); GLOMERULAR FILTRATION RATE > 60.0 (>42); GLUCOSE, FASTING 67 MG/DL (83-110); POTASSIUM SERUM 3.8 MEQ/L (3.5-5.1); SODIUM LEVEL 140 MEQ/L (136-145)
[2017-05-03] MEDS: TIOTROPIUM INHALER/CAPSULE (SPIRIVA) INH SCH (07:04)
[2017-05-03] MEDS: APIXABAN 5 MG TAB (ELIQUIS) PO SCH ×2 (08:59→20:39)
[2017-05-03] MEDS: ASPIRIN 81 MG ENTERIC TAB PO SCH (08:59)
[2017-05-03] MEDS: THIAMINE 100 MG TAB PO SCH (08:59)
[2017-05-03] MEDS: OMEPRAZOLE 20 MG CAP PO SCH (08:59)
[2017-05-03] MEDS: TAMSULOSIN 0.4 MG CAP PO SCH (08:59)
[2017-05-03] MEDS: predniSONE 10 MG TAB PO SCH (08:59)
[2017-05-03] MEDS: hydrOXYzine 50 MG TAB PO SCH ×3 (09:00→20:39)
[2017-05-03] MEDS: MIRALAX *UNIT DOSE* 17GM PACKET PO SCH ×2 (09:00→18:25)
[2017-05-03] MEDS: amLODIPine 10 MG TAB PO SCH (09:00)
[2017-05-03] MEDS: POLYVINYL ALCOHOL OPHTH SOLN 15 ML(LIQUITEARS) OU PRN (09:00)
[2017-05-03] MEDS: guaiFENesin ER 600 MG TAB PO SCH ×2 (09:04→20:39)
--- NOTE | 2017-05-03 09:32 | REP ---
CHEST PA AND LATERAL: 05/03/2017. Comparison: CXR 04/30/2017, 04/28/2017, 04/23/2017. CT chest 04/28/2017. Findings: Lungs are hyperinflated. There is flattening of the diaphragms, increased AP diameter suggesting some COPD. Pulmonary arteries are prominent. There are bilateral effusions, much larger right than left, similar to the study 3 days ago. Compressive/consolidative atelectasis or infiltrates in both bases, right more than left. According to the size of the effusions. Suspect some cardiomegaly. Venous hypertension. No pulmonary edema. The aortic arch has calcifications without aneurysm. Airway intact. No widening of the mediastinum, bony thorax with degenerative changes without compression deformity. Impression: 1. Bibasilar consolidative atelectasis or infiltrates, right much greater than left, similar effusions right greater than left. These are stable compared to the study 3 days ago. 2. Large cardiac silhouette suspected. There is venous hypertension. No melissa edema. Calcified aortic arch without aneurysm. No sign of Signed by James Franco MD 05/03/2017 09:24 A
--- NOTE | 2017-05-03 10:08 | IPNPDOC ---
Text Note Date of Service The patient was seen on 05/03/17. NOTE Subjective: Patient is a 76 year old male with a PMHx of COPD, CHF, DLP, HTN, Chronic A. fib, BPH, Renal cyst, and GERD, who presented to ER with SOB and was found to have a consolidation on left side and large pleural effusion on right side. Patient seen and examined at bedside. Patient stated he is feeling much better. Denies fever/chill, or chest pain. Denies any abdominal pain, nausea, vomiting, diarrhea, problems with urine or blood in urine or stool. Denies any other current new complaints. Objective: Vitals (See below) General: elderly male, lying in bed, not in apparent distress, AAOx3 HEENT: NC, AT, EOMI CVS: irregular heart beat, difficult to auscultation due to increased AP diameter Lungs: improved breathing sound at base of right lung Abdomen: Soft, ND, NT, no peritoneal signs Extremities: trace pitting edema b/l Skin: warm and dry Neuro: CN 2- 12 intact, no focal neurological deficit CXR PA/Lat 05/03/17: bibasilar consolidative atelectasis R>L, similar effusion R >L stable compare to 3 days ago. Assessment and plan: Dyspnea (Cough and SOB) - likely multifactorial; 2/2 large right sided pleural effusion, COPD exacerbation, Community acquired pneumonia, Fluid overload 2/2 CHF - Clinically improving - Physical with still diminished lung sounds at right base - s/p US guided thoracentesis; Removed 2000cc of Exudative material; less likely Empyema - Pleural fluid culture 04/24: Negative; - Pathology 04/23: No evidence of malignancy - s/p Rocephin for 8 days - c/w Supplemental oxygen - c/w Steroid taper (currently at 10 mg daily, which is his home dose) - c/w Lasix; will increase from 40 IV q6h to 40 q4h - Dr. Cordova (Pulmonology) consulted; Appreciate their input; no thoracentesis at this point - Stable CXR; effusion remains unchanged - Will discuss with Pulmonary about findings, however will increase amount of diuresis Bacteremia - likely 2/2 PNA - Blood culture 04/24: (2 of 2) Strep Pneumo - Sensitive Ceftriaxone - Echo negative for vegetation - repeat blood cultures negative - s/p ceftriaxone 04/22/17 , Completed 8 day course Acute hypoxic respiratory failure with left lower lobe pneumonia possible community acquired with parapneumonic effusion - He was on venti mask 50% FiO2 and was only saturating 87% on admission, he was on 2L NC at home, - Currently on 4L NC to maintain saturation - Blood cx came back 04/24/17 Strep Pneumo - D/C Vanco 04/24/17 - DuoNebs - Advair - See above s/p Leukocytosis - likely 2/2 infectious process, possibly 2/2 reactive process (Corticosteroids) - Presented with leukocytosis improving - CRP also improving s/p Hypokalemia - Resolved Acute exacerbation on Chronic COPD with chronic hypoxic respiratory failure on 4L O2 at home 24 hours a day -Continue steroid taper Cardiac risk - Continue ASA HFpEF - Back on home Lasix 40 mg daily 04/28/17 from lasix 20 mg daily - In/Outs monitored - Echo 04/22/17 showed normal LV systolic function, very high central venous pressure HTN - On Norvasc 10 mg daily, Metoprol succinate 25 mg qhs GERD -PPI Chronic Afib - c/w Eliquis Renal cyst hx BPH with urinary retention - Patient self catheterizes at home 4 times a day - Nava DC'd, started straight cath DLP -c/w statin Anxiety - Atarax Constipation - Holding lactulose Insomnia - continue Trazodone DVT prophylaxis - SCD/TEDS and on full anticoagulation with Eliquis Fluid, electrolyte, nutrition: Low fat and low cholesterol diet, 2G Na, 2L fluid restriction Disposition: - Waiting for clinically improve with diuresis - will increase frequency of diuresis - CXR appears to be stable; effusion unchanged GME ATTESTATION My preceptor for this patient encounter was physically present in the building during the encounter and was fully available. As needed, all aspects of the patient interview, examination, medical decision making process, and medical care plan development were reviewed and approved by the preceptor. Preceptor is aware and concurs with the plan as stated in the body of this note and will attest to such by his/her cosignature. ATTENDING NOTE I, Junaid Navarrete, have both independently examined this patient as well as reviewed the documentation. I have discussed in detail with the resident the findings and plan of treatment as documented in the residents documentation. I will continue to follow the patient and offer further guidance to the patients care as necessary during this hospital stay. VS,Fishbone, I+O VS, Fishbone, I+O Laboratory Tests 05/03/17 06:11 Red Blood Count 3.05 L, Mean Corpuscular Volume 93.4, Mean Corpuscular Hemoglobin 29.2, Mean Corpuscular Hemoglobin Concent 31.2 L, Red Cell Distribution Width 14.5, Neutrophils (%) (Auto) 64.7, Lymphocytes (%) (Auto) 17.8 L, Monocytes (%) (Auto) 10.1 H, Eosinophils (%) (Auto) 2.5, Basophils (%) ( Auto) 0.2, Neutrophils # (Auto) 3.9, Lymphocytes # (Auto) 1.1 L, Monocytes # ( Auto) 0.6, Eosinophils # (Auto) 0.2, Basophils # (Auto) 0.0, Calcium Level 8.0 L Vital Signs Date Time Temp Pulse Resp B/P (MAP) Pulse Ox O2 Delivery O2 Flow Rate FiO2 05/03/17 09:00 74 136/65 05/03/17 06:00 97.2 20 99 Nasal Cannula 4.0 I&O- Last 24 Hours up to 6 AM 05/04/17 06:00 Intake Total 230 ml Output Total 0 ml Balance 230 ml KRISTEN GRAVES DO May 03, 2017 10:08 JUNAID NAVARRETE MD May 03, 2017 10:19
[2017-05-03] MEDS: SIMVASTATIN 20 MG TAB PO SCH (20:39)
[2017-05-03] MEDS: traZODone 50 MG TAB PO SCH (20:39)
[2017-05-03] MEDS: METOPROLOL SUCC *XL* 25MG TAB (TopROL *XL*) PO SCH (20:39)
[2017-05-03] MEDS: ALPRAZolam 0.5 MG TAB PO SCH (20:39)
[2017-05-04 02:00] VITALS: BP 105/56
[2017-05-04] MEDS: IPRATROPIUM 0.5MG/ALBUTEROL 2.5MG INH SOL UD 3ML (DUONEB)(J7620) NEB SCH ×8 (03:50→23:12)
[2017-05-04] MEDS: FUROSEMIDE 40 MG/4 ML VIAL (J1940) IV SCH ×7 (04:59→23:51)
[2017-05-04 06:00] VITALS: BP 116/63
[2017-05-04 06:20] LABS: BASO % 0.2 % (0.0-1.0); EOS # 0.2 10^3/uL (0.0-0.50); EOS % 3.5 % (0.0-3.0); LYMPH # 1.1 10^3/uL (1.5-4.5); LYMPH % 18.8 % (24.0-44.0); MEAN CORPUSCULAR HEMOGLOBIN 29.1 pg (27.0-33.0); MEAN CORPUSCULAR HGB CONC 31.3 g/dl (32.0-36.5); MONO # 0.6 10^3/uL (0.0-0.8); MONO % 10.4 % (0.0-5.0); NEUTROPHILS # 3.5 10^3/uL (1.8-7.7); NEUTROPHILS % 62.1 % (36.0-66.0); PLATELET COUNT, AUTOMATED 218 10^3/uL (150-450); RED CELL DISTRIBUTION WIDTH 14.6 % (11.5-14.5); WHITE BLOOD COUNT 5.7 10^3/uL (4.0-10.0)
[2017-05-04 06:49] LABS: ANION GAP 2 MEQ/L (8-16); BLOOD UREA NITROGEN 19 MG/DL (7-18); CALCIUM LEVEL 8.3 MG/DL (8.8-10.2); CARBON DIOXIDE LEVEL 40 MEQ/L (21-32); CHLORIDE LEVEL 99 MEQ/L (98-107); CREATININE FOR GFR 0.96 MG/DL (0.70-1.30); GLOMERULAR FILTRATION RATE > 60.0 (>42); GLUCOSE, FASTING 66 MG/DL (83-110); POTASSIUM SERUM 3.7 MEQ/L (3.5-5.1); SODIUM LEVEL 141 MEQ/L (136-145)
[2017-05-04] MEDS: TIOTROPIUM INHALER/CAPSULE (SPIRIVA) INH SCH (07:34)
[2017-05-04] MEDS: ADVAIR HFA 115/21MCG INHALER INH SCH ×2 (07:35→20:38)
[2017-05-04] MEDS: amLODIPine 10 MG TAB PO SCH (08:35)
[2017-05-04] MEDS: guaiFENesin ER 600 MG TAB PO SCH ×2 (08:35→20:33)
[2017-05-04] MEDS: ASPIRIN 81 MG ENTERIC TAB PO SCH (08:35)
[2017-05-04] MEDS: THIAMINE 100 MG TAB PO SCH (08:35)
[2017-05-04] MEDS: predniSONE 10 MG TAB PO SCH (08:35)
[2017-05-04] MEDS: OMEPRAZOLE 20 MG CAP PO SCH (08:35)
[2017-05-04] MEDS: hydrOXYzine 50 MG TAB PO SCH ×3 (08:36→20:33)
[2017-05-04] MEDS: MIRALAX *UNIT DOSE* 17GM PACKET PO SCH (08:36)
[2017-05-04] MEDS: TAMSULOSIN 0.4 MG CAP PO SCH (08:36)
[2017-05-04] MEDS: APIXABAN 5 MG TAB (ELIQUIS) PO SCH ×2 (08:36→20:33)
[2017-05-04 10:00] VITALS: BP 135/61
--- NOTE | 2017-05-04 10:55 | IPNPDOC ---
Text Note Date of Service The patient was seen on 05/04/17. NOTE Subjective: Patient is a 76 year old male with a PMHx of COPD, CHF, DLP, HTN, Chronic A. fib, BPH, Renal cyst, and GERD, who presented to ER with SOB and was found to have a consolidation on left side and large pleural effusion on right side. Patient seen and examined at bedside. Currently he denies any new events overnight. Notes that his breathing remains relatively unchanged. Objective: Vitals (See below) General: elderly male, lying in bed, not in apparent distress, AAOx3 HEENT: NC, AT, EOMI CVS: irregular heart beat, difficult to auscultation due to increased AP diameter Lungs: right lung base with decrease aeration Abdomen: Soft, ND, NT, no peritoneal signs Extremities: trace pitting edema b/l at ankles Skin: warm and dry Neuro: CN 2- 12 intact, no focal neurological deficit Assessment and plan: Dyspnea (Cough and SOB) - likely multifactorial; 2/2 large right sided pleural effusion, COPD exacerbation, Community acquired pneumonia, Fluid overload 2/2 CHF - Clinically has remained stable - Physical with still diminished lung sounds at right base - s/p US guided thoracentesis; Removed 2000cc of Exudative material; less likely Empyema - Pleural fluid culture 04/24: Negative; Pathology 04/23: No evidence of malignancy - Repeat imaging via CXR 05/03: effusion remains unchanged - s/p Ceftriaxone for 8 days - c/w Supplemental oxygen - c/w Prednisone 10 mg daily - home dose - c/w Lasix at 40 q4h for net negative protocol of 2000 cc / 24 hours - Dr. Cordova (Pulmonology) consulted; Appreciate their input; no thoracentesis at this point Bacteremia - likely 2/2 PNA - Blood culture 04/24: (2 of 2) Strep Pneumo - Sensitive Ceftriaxone - Echo negative for vegetation - Repeat blood cultures negative - s/p ceftriaxone 04/22/17 , Completed 8 day course Acute hypoxic respiratory failure - likely 2/2 left lower lobe pneumonia - possible 2/2 community acquired with effusion - Uses 2L NC at home, currently on 4L NC to maintain saturation - Blood cx came back 04/24/17 Strep Pneumo - D/C Vanco 04/24/17 - Lena - Advair - See above s/p Leukocytosis - likely 2/2 infectious process, possibly 2/2 reactive process (Corticosteroids) - Presented with leukocytosis improving s/p Hypokalemia - Resolved Chronic COPD with Chronic hypoxic respiratory failure on 2L O2 at home 24 hours a day - c/w chronic steroid therapy Cardiac risk - Continue ASA HFpEF - In/Outs monitored - Echo 04/22/17 showed normal LV systolic function, very high central venous pressure - See above for Lasix dose HTN - On Norvasc 10 mg daily, Metoprol succinate 25 mg qhs GERD -PPI Chronic Afib - c/w Eliquis Renal cyst hx BPH with urinary retention - s/p Nava - Patient self catheterizes at home 4 times a day - c/w Self catheterization DLP -c/w statin Anxiety - Atarax Constipation - Holding lactulose Insomnia - continue Trazodone DVT prophylaxis - SCD/TEDS and on full anticoagulation with Eliquis Fluid, electrolyte, nutrition: Low fat and low cholesterol diet, 2G Na, 2L fluid restriction Disposition: - c/w aggressive diuresis - awaiting for oxygenation to improve VS,Stevie, I+O VS, Stevie, I+O Laboratory Tests 05/04/17 05:50 Red Blood Count 3.13 L, Mean Corpuscular Volume 93.0, Mean Corpuscular Hemoglobin 29.1, Mean Corpuscular Hemoglobin Concent 31.3 L, Red Cell Distribution Width 14.6 H, Neutrophils (%) (Auto) 62.1, Lymphocytes (%) (Auto) 18.8 L, Monocytes (%) (Auto) 10.4 H, Eosinophils (%) (Auto) 3.5 H, Basophils (% ) (Auto) 0.2, Neutrophils # (Auto) 3.5, Lymphocytes # (Auto) 1.1 L, Monocytes # (Auto) 0.6, Eosinophils # (Auto) 0.2, Basophils # (Auto) 0.0, Calcium Level 8.3 L Vital Signs Date Time Temp Pulse Resp B/P (MAP) Pulse Ox O2 Delivery O2 Flow Rate FiO2 05/04/17 10:00 97.6 74 20 135/61 (85) 99 Nasal Cannula 4.0 I&O- Last 24 Hours up to 6 AM 05/05/17 06:00 Intake Total 420 ml Output Total 450 ml Balance -30 ml ANJUM LIMA MD May 04, 2017 10:55
[2017-05-04 14:00] VITALS: BP 123/59
[2017-05-04 18:00] VITALS: BP 125/58
[2017-05-04] MEDS: POLYVINYL ALCOHOL OPHTH SOLN 15 ML(LIQUITEARS) OU PRN (18:42)
[2017-05-04] MEDS: ALPRAZolam 0.5 MG TAB PO SCH (20:33)
[2017-05-04] MEDS: traZODone 50 MG TAB PO SCH (20:33)
[2017-05-04] MEDS: SIMVASTATIN 20 MG TAB PO SCH (20:33)
[2017-05-04] MEDS: METOPROLOL SUCC *XL* 25MG TAB (TopROL *XL*) PO SCH (20:37)
[2017-05-04 22:00] VITALS: BP 136/60
[2017-05-05 02:00] VITALS: BP 127/61
[2017-05-05] MEDS: IPRATROPIUM 0.5MG/ALBUTEROL 2.5MG INH SOL UD 3ML (DUONEB)(J7620) NEB SCH ×5 (03:09→20:00)
[2017-05-05] MEDS: FUROSEMIDE 40 MG/4 ML VIAL (J1940) IV SCH ×2 (04:01→08:41)
[2017-05-05 06:00] VITALS: BP 112/73
[2017-05-05 07:30] LABS: MEAN CORPUSCULAR HEMOGLOBIN 29.1 pg (27.0-33.0); MEAN CORPUSCULAR HGB CONC 31.3 g/dl (32.0-36.5); MEAN CORPUSCULAR VOLUME 92.8 fl (80.0-96.0); PLATELET COUNT, AUTOMATED 214 10^3/uL (150-450); RED CELL DISTRIBUTION WIDTH 14.6 % (11.5-14.5); WHITE BLOOD COUNT 6.1 10^3/uL (4.0-10.0)
[2017-05-05] MEDS: ADVAIR HFA 115/21MCG INHALER INH SCH ×2 (07:40→19:56)
[2017-05-05] MEDS: TIOTROPIUM INHALER/CAPSULE (SPIRIVA) INH SCH (07:40)
[2017-05-05 07:56] LABS: ALBUMIN 2.5 GM/DL (3.2-5.2); ALBUMIN/GLOBULIN RATIO 0.61 (1.00-1.93); ALKALINE PHOSPHATASE 76 U/L (45-117); ALT/SGPT 18 U/L (12-78); ANION GAP 5 MEQ/L (8-16); AST/SGOT 11 U/L (7-37); BILIRUBIN,TOTAL 0.6 MG/DL (0.2-1.0); BLOOD UREA NITROGEN 18 MG/DL (7-18); CALCIUM LEVEL 8.6 MG/DL (8.8-10.2); CARBON DIOXIDE LEVEL 41 MEQ/L (21-32); CHLORIDE LEVEL 95 MEQ/L (98-107); CREATININE FOR GFR 1.05 MG/DL (0.70-1.30); GLOMERULAR FILTRATION RATE > 60.0 (>42); GLUCOSE, FASTING 68 MG/DL (83-110); POTASSIUM SERUM 3.5 MEQ/L (3.5-5.1); SODIUM LEVEL 141 MEQ/L (136-145); TOTAL PROTEIN 6.6 GM/DL (6.4-8.2)
[2017-05-05] MEDS ORDERED: ACETYLCYSTEINE 10% 30 ML VIAL INH SCH (08:00)
[2017-05-05 08:12] LABS: ADD MANUAL DIFFER YES; DIFF SLIDE NUMBER 89; POS COUNT POS FLAG; POSITIVE MORPH POS FLAG
[2017-05-05 08:15] LABS: EOSINOPHILS 3 % (0-5)
[2017-05-05] MEDS: hydrOXYzine 50 MG TAB PO SCH ×3 (08:41→20:28)
[2017-05-05] MEDS: ASPIRIN 81 MG ENTERIC TAB PO SCH (08:41)
[2017-05-05] MEDS: THIAMINE 100 MG TAB PO SCH (08:41)
[2017-05-05] MEDS: guaiFENesin ER 600 MG TAB PO SCH ×2 (08:41→20:29)
[2017-05-05] MEDS: predniSONE 10 MG TAB PO SCH (08:41)
[2017-05-05] MEDS: APIXABAN 5 MG TAB (ELIQUIS) PO SCH ×2 (08:41→20:28)
[2017-05-05] MEDS: OMEPRAZOLE 20 MG CAP PO SCH (08:41)
[2017-05-05] MEDS: amLODIPine 10 MG TAB PO SCH (08:42)
[2017-05-05] MEDS: TAMSULOSIN 0.4 MG CAP PO SCH (08:42)
[2017-05-05] MEDS: MIRALAX *UNIT DOSE* 17GM PACKET PO SCH (09:00)
[2017-05-05 10:00] VITALS: BP 120/56
[2017-05-05] MEDS: POLYVINYL ALCOHOL OPHTH SOLN 15 ML(LIQUITEARS) OU PRN (10:12)
[2017-05-05] MEDS ORDERED: MOM 30ML SUSPENSION UDC PO PRN (11:15)
--- NOTE | 2017-05-05 11:16 | IPNPDOC ---
Text Note Date of Service The patient was seen on 05/05/17. NOTE Subjective: Patient is a 76 year old male with a PMHx of COPD, CHF, DLP, HTN, Chronic A. fib, BPH, Renal cyst, and GERD, who presented to ER with SOB and was found to have a consolidation on left side and large pleural effusion on right side. Patient seen and examined at bedside. Patient is feeling more tired today. He admits to more cough and couldn't get phlegm out. Still admits to constipation and would like more stool softener. Patient denies fever/chill, CP, worsening SOB, abdominal pain, nausea, vomiting, diarrhea, blood in urine or stool or swelling in lower extremities. Denies any other current new complaints. Objective: Vitals (See below) General: elderly male, lying in bed, not in apparent distress, AAOx3 HEENT: NC, AT, EOMI, dry mucosa CVS: irregular heart beat, difficult to auscultation due to increased AP diameter Lungs: right lung base with decrease aeration Abdomen: Soft, ND, NT, no peritoneal signs Extremities: Trace edema/clubbing/cyanosis Skin: warm and dry Neuro: CN 2- 12 intact, no focal neurological deficit Assessment and plan: Dyspnea (Cough and SOB) - likely multifactorial; 2/2 large right sided pleural effusion, COPD exacerbation, Community acquired pneumonia, Fluid overload 2/2 CHF - Clinically has remained stable - Physical with still diminished lung sounds at right base, trace edema - s/p US guided thoracentesis; Removed 2000cc of Exudative material; less likely Empyema - Pleural fluid culture 04/24: Negative; Pathology 04/23: No evidence of malignancy - Repeat imaging via CXR 05/03: effusion remains unchanged - Started mucomyst in additional to Guaifenesin - s/p Ceftriaxone for 8 days - c/w Supplemental oxygen - c/w Prednisone 10 mg daily - home dose - c/w Lasix at 40 q12h for net negative protocol of 2000 cc / 24 hours - Dr. Cordova (Pulmonology) consulted; Appreciate their input; no thoracentesis at this point Bacteremia - likely 2/2 PNA - Blood culture 04/24: (2 of 2) Strep Pneumo - Sensitive Ceftriaxone - Echo negative for vegetation - Repeat blood cultures negative - s/p ceftriaxone 04/22/17 , Completed 8 day course Acute hypoxic respiratory failure - likely 2/2 left lower lobe pneumonia - possible 2/2 community acquired with effusion - Uses 2L NC at home, currently on 4L NC to maintain saturation - Blood cx came back 04/24/17 Strep Pneumo - D/C Vanco 04/24/17 - DuoNebs - Advair - See above s/p Leukocytosis - likely 2/2 infectious process, possibly 2/2 reactive process (Corticosteroids) - Presented with leukocytosis improving s/p Hypokalemia - Resolved Chronic COPD with Chronic hypoxic respiratory failure on 2L O2 at home 24 hours a day - c/w chronic steroid therapy Cardiac risk - Continue ASA HFpEF - In/Outs monitored - Echo 04/22/17 showed normal LV systolic function, very high central venous pressure - See above for Lasix dose HTN - On Norvasc 10 mg daily, Metoprol succinate 25 mg qhs GERD -PPI Chronic Afib - c/w Eliquis Renal cyst hx BPH with urinary retention - s/p Nava - Patient self catheterizes at home 4 times a day - c/w Self catheterization DLP -c/w statin Anxiety - Atarax Constipation - Holding lactulose Insomnia - continue Trazodone DVT prophylaxis - SCD/TEDS and on full anticoagulation with Eliquis Fluid, electrolyte, nutrition: Low fat and low cholesterol diet, 2G Na, 2L fluid restriction Disposition: - c/w diuresis - awaiting for oxygenation to improve GME ATTESTATION My preceptor for this patient encounter was physically present in the building during the encounter and was fully available. As needed, all aspects of the patient interview, examination, medical decision making process, and medical care plan development were reviewed and approved by the preceptor. Preceptor is aware and concurs with the plan as stated in the body of this note and will attest to such by his/her cosignature. ATTENDING NOTE I, Junaid Navarrete, have both independently examined this patient as well as reviewed the documentation. I have discussed in detail with the resident the findings and plan of treatment as documented in the residents documentation. I will continue to follow the patient and offer further guidance to the patients care as necessary during this hospital stay. VS,Fishbone, I+O VS, Fishbone, I+O Laboratory Tests 05/05/17 07:17 Red Blood Count 3.20 L, Mean Corpuscular Volume 92.8, Mean Corpuscular Hemoglobin 29.1, Mean Corpuscular Hemoglobin Concent 31.3 L, Red Cell Distribution Width 14.6 H, Calcium Level 8.6 L, Aspartate Amino Transf (AST/SGOT ) 11, Alanine Aminotransferase (ALT/SGPT) 18, Alkaline Phosphatase 76, Total Bilirubin 0.6, Total Protein 6.6, Albumin 2.5 L Vital Signs Date Time Temp Pulse Resp B/P (MAP) Pulse Ox O2 Delivery O2 Flow Rate FiO2 05/05/17 10:00 98.6 77 20 120/56 (77) 94 Nasal Cannula 3.0 I&O- Last 24 Hours up to 6 AM 05/06/17 06:00 Intake Total 330 ml Output Total 800 ml Balance -470 ml KRISTEN GRAVES DO May 05, 2017 11:16 JUNAID NAVARRETE MD May 05, 2017 11:41
[2017-05-05] MEDS ORDERED: POTASSIUM CHLORIDE 10 MEQ SR TABLET PO ONE (11:30)
[2017-05-05] MEDS: DOCUSATE SODIUM 100 MG CAP PO SCH ×2 (12:28→20:28)
[2017-05-05 14:00] VITALS: BP 132/88
[2017-05-05] MEDS: ACETYLCYSTEINE 20% 4 ML VIAL (200MG/ML) INH SCH ×2 (14:21→19:56)
[2017-05-05 18:00] VITALS: BP 137/63
[2017-05-05] MEDS: traZODone 50 MG TAB PO SCH (20:26)
[2017-05-05] MEDS: METOPROLOL SUCC *XL* 25MG TAB (TopROL *XL*) PO SCH (20:29)
[2017-05-05] MEDS: ALPRAZolam 0.5 MG TAB PO SCH (20:31)
[2017-05-05] MEDS: SIMVASTATIN 20 MG TAB PO SCH (20:32)
[2017-05-05 22:00] VITALS: BP 140/67
[2017-05-06] MEDS ORDERED: FUROSEMIDE 40 MG/4 ML VIAL (J1940) IV SCH
[2017-05-06 02:00] VITALS: BP 113/64
[2017-05-06] MEDS: IPRATROPIUM 0.5MG/ALBUTEROL 2.5MG INH SOL UD 3ML (DUONEB)(J7620) NEB SCH ×5 (04:00→15:24)
[2017-05-06 06:00] VITALS: BP 112/60
[2017-05-06 06:34] LABS: BASO % 0.2 % (0.0-1.0); EOS # 0.2 10^3/uL (0.0-0.50); EOS % 3.1 % (0.0-3.0); IMMATURE GRANULOCYTE % 2.1 % (0-0); LYMPH # 1.1 10^3/uL (1.5-4.5); LYMPH % 17.5 % (24.0-44.0); MEAN CORPUSCULAR HEMOGLOBIN 28.8 pg (27.0-33.0); MEAN CORPUSCULAR HGB CONC 31.1 g/dl (32.0-36.5); MEAN CORPUSCULAR VOLUME 92.6 fl (80.0-96.0); MONO # 0.6 10^3/uL (0.0-0.8); MONO % 10.4 % (0.0-5.0); NEUTROPHILS # 4.1 10^3/uL (1.8-7.7); NEUTROPHILS % 66.7 % (36.0-66.0); PLATELET COUNT, AUTOMATED 221 10^3/uL (150-450); RED CELL DISTRIBUTION WIDTH 14.6 % (11.5-14.5); WHITE BLOOD COUNT 6.2 10^3/uL (4.0-10.0)
[2017-05-06 07:01] LABS: ALBUMIN 2.5 GM/DL (3.2-5.2); ALBUMIN/GLOBULIN RATIO 0.63 (1.00-1.93); ALKALINE PHOSPHATASE 76 U/L (45-117); ALT/SGPT 17 U/L (12-78); ANION GAP 4 MEQ/L (8-16); AST/SGOT 11 U/L (7-37); BILIRUBIN,TOTAL 0.5 MG/DL (0.2-1.0); BLOOD UREA NITROGEN 24 MG/DL (7-18); CALCIUM LEVEL 8.7 MG/DL (8.8-10.2); CARBON DIOXIDE LEVEL 40 MEQ/L (21-32); CHLORIDE LEVEL 96 MEQ/L (98-107); CREATININE FOR GFR 1.17 MG/DL (0.70-1.30); GLOMERULAR FILTRATION RATE > 60.0 (>42); GLUCOSE, FASTING 76 MG/DL (83-110); MAGNESIUM LEVEL 2.3 MG/DL (1.8-2.4); POTASSIUM SERUM 4.1 MEQ/L (3.5-5.1); SODIUM LEVEL 140 MEQ/L (136-145); TOTAL PROTEIN 6.5 GM/DL (6.4-8.2)
[2017-05-06] MEDS: TIOTROPIUM INHALER/CAPSULE (SPIRIVA) INH SCH (07:30)
[2017-05-06] MEDS: ACETYLCYSTEINE 20% 4 ML VIAL (200MG/ML) INH SCH (07:31)
--- NOTE | 2017-05-06 08:40 | REP ---
Clinical: Follow up pleural effusion Comparison: 05/03/2017. Findings: Large right and small left pleural effusions are again identified along with underlying infiltrates/atelectasis (right greater than left). Findings remain relatively similar to prior examination and without significant change. No pneumothorax. Impression: Bilateral pleural effusions and associated parenchymal opacities (right greater than left) essentially unchanged. Signed by Deangelo Howell MD 05/06/2017 08:31 A
[2017-05-06] MEDS ORDERED: MIRALAX *UNIT DOSE* 17GM PACKET PO SCH (09:00)
[2017-05-06 10:00] VITALS: BP 133/61
[2017-05-06] MEDS ORDERED: LASI40TA PO (10:16)
[2017-05-06] MEDS: ASPIRIN 81 MG ENTERIC TAB PO SCH (10:47)
[2017-05-06] MEDS: THIAMINE 100 MG TAB PO SCH (10:47)
[2017-05-06] MEDS: DOCUSATE SODIUM 100 MG CAP PO SCH (10:47)
[2017-05-06] MEDS: OMEPRAZOLE 20 MG CAP PO SCH (10:47)
[2017-05-06] MEDS: TAMSULOSIN 0.4 MG CAP PO SCH (10:48)
[2017-05-06] MEDS: hydrOXYzine 50 MG TAB PO SCH ×2 (10:49→15:12)
[2017-05-06] MEDS: FUROSEMIDE 40 MG TAB PO SCH ×2 (10:49→16:18)
[2017-05-06] MEDS: APIXABAN 5 MG TAB (ELIQUIS) PO SCH (10:49)
[2017-05-06] MEDS: predniSONE 10 MG TAB PO SCH (10:49)
[2017-05-06] MEDS: guaiFENesin ER 600 MG TAB PO SCH (10:49)
[2017-05-06 10:50] VITALS: BP 122/64
[2017-05-06] MEDS: amLODIPine 10 MG TAB PO SCH (10:50)
[2017-05-06] MEDS: ADVAIR HFA 115/21MCG INHALER INH SCH (10:59)
[2017-05-06 14:00] VITALS: BP 119/65
--- NOTE | 2017-05-06 14:16 | DSES ---
DATE OF ADMISSION: 04/22/2017 DATE OF DISCHARGE: ATTENDING PHYSICIAN: Junaid Navarrete MD and Jose Muller MD DICTATING PHYSICIAN: Junaid Navarrete MD PRIMARY CARE PHYSICIAN: Mary Fish REFERRING PHYSICIAN: None. CONSULTING PHYSICIAN: Dr. Rip Cordova and Dr. Neves PROCEDURES: The patient had a thoracentesis performed on 04/22/2017. HISTORY OF PRESENT ILLNESS: The patient is a 76-year-old male with a past medical history of chronic obstructive pulmonary disease (COPD), congestive heart failure (CHF), dyslipidemia, hypertension, chronic atrial fibrillation, benign prostatic hypertrophy (BPH), renal cyst, and gastroesophageal reflux disease (GERD), who presented to the emergency room with shortness of breath and was found to have a consolidation on the left side and a large pleural effusion on the right side. HOSPITAL COURSE: 1. Dyspnea, cough and shortness of breath. Likely multifactorial in etiology, secondary to large right sided pleural effusion, COPD exacerbation, community acquired pneumonia, and fluid overload from CHF. The patient has improvement in his clinical course throughout the hospital stay. Physical has revealed persistently diminished lung sounds on the right; however, has remained stable and his lower extremity edema has improved significantly. The patient is status post ultrasound guided thoracentesis and 2000 mL of exudative material was removed. This was not consistent with empyema. Pleural fluid culture on 04/24 was negative. Pathology on 04/23/2017 was consistent with no evidence of malignancy. Repeat imaging via chest x-ray on 05/03 revealed the effusion had remained unchanged; however, had remained stable. The patient was started on Mucomyst to help breakup secretions. He received an 8 day course of ceftriaxone and has been afebrile since that point. THe patient is requiring supplemental oxygen up to 4 liters throughout the hospital course; however, is now down to his baseline of about 2 liters. He has been transitioned down to prednisone 10 mg, which is his home dose, and Lasix has been transitioned to 40 mg by mouth twice a day. The patient has had a negative fluid balance throughout the hospital course and is currently negative [address] Cordova from pulmonary was consulted. We appreciated the input. 2. Bacteremia, likely secondary to pneumonia. Blood cultures on 04/24/2017, two out of two, were positive for Streptococcus pneumoniae, which was sensitive to ceftriaxone. Echocardiogram was negative for vegetations. Repeat blood cultures remained negative. The patient has completed an 8 day course of ceftriaxone. 3. Acute hypoxic respiratory failure, likely secondary to left sided lower lobe pneumonia, possibly secondary to community acquired pneumonia with effusion, uses 2 liters of nasal cannula oxygen at home. Has been transitioned back to his baseline level. 4. Status post leukocytosis. Likely secondary to an infectious process and possibly a reactive process from corticosteroids, though has resolved. 5. Status post hypokalemia. 6. Chronic COPD with chronic hypoxic respiratory failure, on 2 liters of oxygen at home. Continue with chronic steroid therapy. 7. Cardiac risk. Continue with aspirin 81 mg. 8. Heart failure with preserved ejection fraction. Will continue to be monitored. Echo on 04/22/2017 normal left ventricular systolic function, very high central venous pressure and diastolic dysfunction. 9. Hypertension. Continue with Norvasc and metoprolol succinate. 10. Gastroesophageal reflux disease (GERD). Continue with proton pump inhibitor. 11. Chronic atrial fibrillation. Continue with Eliquis and rate control. 12. Renal cyst history. Benign prostatic hypertrophy (BPH) with urinary retention. The patient had a Nava catheter inserted throughout the hospital course. The patient uses self catheterizations at home. We will remove Nava catheter and the patient will continue with self catheterization at home upon discharge. 13. Dyslipidemia. Continue simvastatin. 14. Anxiety. Continue with Atarax. 15. Constipation. Continue with lactulose as an outpatient. 16. Insomnia. Continue with trazodone. 17. Deep vein thrombosis (DVT) prophylaxis. Continue with Sleeve compression devices and full anticoagulation with Eliquis. DISCHARGE MEDICATIONS: The patient is being discharged home on the following medication list: - albuterol 2 puss inhaled as needed for shortness of breath - alprazolam 0.5 mp at night - amlodipine 10 mg by mouth daily - Eliquis 5 mg by mouth twice a day - aspirin 81 mg by mouth daily - Refresh tears in each eye four times a day as needed for dry eyes. - docusate sodium 100 mg by mouth id or constipation. - Mucinex 600 mg by mouth three times a day - hydroxyzine 50 mg by mouth three times a day - Lactulose 50 mg by mouth daily The patient is on metoprolol succinate 25 mg by mouth at night - multivitamin one tablet by mouth daily - omeprazole 20 mg by mouth daily - prednisone 10 mg by mouth daily - Preparation H. One dose per rectum as needed for hemorrhoids. - Advair two puffs inhaled by - simvastatin 20 mg by mouth at [facility] - tamsulosin 0.8 mg by mouth daily - thiamine 100 mg by mouth daily - ipratropium one halation inhaled daily. Trazodone 50 mg by mouth at night. NEW MEDICATION PRESCRIBED: Furosemide 40 mg by mouth twice a day. DISCHARGE INSTRUCTIONS: The patient has been advised to followup with primary care provider, as well as [id number] within the next 7 days. He has been advised to remain compliant with treatment plan and medication. The patient is to returns to the emergency room if he experiences any problems. Time spent on discharge: Greater then 35 minutes. MTDD
[2017-05-06 16:15] VITALS: BP 132/60
== END 2017-05-06 16:47 | disposition home or self-care (01) | DRG 291 ==
LOC: M ED 22:42 → M ED INP 04-22 03:25 → M ICU 04-22 04:48 → M MSPAV 04-24 17:47
PROVIDERS: ADMIT Internal Medicine; ATTEND Internal Medicine
PROC: 0W993ZX Drainage of Right Pleural Cavity, Percutaneous Approach, Diagnostic (ICD-10-PCS; principal; 2017-04-22)
DX: I11.0 Hypertensive heart disease with heart failure (principal); J18.9 Pneumonia, unspecified organism; J96.21 Acute and chronic respiratory failure with hypoxia; J90 Pleural effusion, not elsewhere classified; N39.0 Urinary tract infection, site not specified; J44.1 Chronic obstructive pulmonary disease with (acute) exacerbation; R78.81 Bacteremia; I50.33 Acute on chronic diastolic (congestive) heart failure; I48.2 Chronic atrial fibrillation; K21.9 Gastro-esophageal reflux disease without esophagitis; N40.1 Benign prostatic hyperplasia with lower urinary tract symptoms; K59.00 Constipation, unspecified; F41.9 Anxiety disorder, unspecified; G47.00 Insomnia, unspecified; L40.9 Psoriasis, unspecified; R26.81 Unsteadiness on feet; R91.1 Solitary pulmonary nodule; R33.9 Retention of urine, unspecified; E87.6 Hypokalemia; Z99.81 Dependence on supplemental oxygen; Z88.1 Allergy status to other antibiotic agents; Z88.6 Allergy status to analgesic agent; Z88.0 Allergy status to penicillin; Z88.2 Allergy status to sulfonamides; Z88.8 Allergy status to other drugs, medicaments and biological substances; Z91.040 Latex allergy status; Z87.891 Personal history of nicotine dependence; Z79.01 Long term (current) use of anticoagulants; Z79.82 Long term (current) use of aspirin; Z79.899 Other long term (current) drug therapy; Z79.52 Long term (current) use of systemic steroids

== ENCOUNTER → 2017-07-19 | Outpatient (CLI) | payer MEDICARE ==
[2017-07-19 19:26] LABS: ALBUMIN 3.1 GM/DL (3.2-5.2); ALBUMIN/GLOBULIN RATIO 0.86 (1.00-1.93); ALKALINE PHOSPHATASE 92 U/L (45-117); ALT/SGPT 23 U/L (12-78); ANION GAP 7 MEQ/L (8-16); AST/SGOT 14 U/L (7-37); BILIRUBIN,TOTAL 0.3 MG/DL (0.2-1.0); BLOOD UREA NITROGEN 16 MG/DL (7-18); CALCIUM LEVEL 8.5 MG/DL (8.8-10.2); CARBON DIOXIDE LEVEL 39 MEQ/L (21-32); CHLORIDE LEVEL 97 MEQ/L (98-107); CREATININE FOR GFR 1.06 MG/DL (0.70-1.30); FREE T4 1.12 NG/DL (0.76-1.46); GLOMERULAR FILTRATION RATE > 60.0 (>42); GLUCOSE, FASTING 108 MG/DL (70-100); NT-PRO BNP 1694 PG/ML (<450); POTASSIUM SERUM 2.8 MEQ/L (3.5-5.1); SODIUM LEVEL 143 MEQ/L (136-145); TOTAL PROTEIN 6.7 GM/DL (6.4-8.2)
[2017-07-19 19:28] LABS: HEMOGLOBIN 10.4 g/dl (14.0-18.0); MEAN CORPUSCULAR HEMOGLOBIN 26.1 pg (27.0-33.0); MEAN CORPUSCULAR HGB CONC 29.7 g/dl (32.0-36.5); MEAN CORPUSCULAR VOLUME 87.9 fl (80.0-96.0); PLATELET COUNT, AUTOMATED 180 10^3/uL (150-450); RED BLOOD COUNT 3.98 10^6/uL (4.30-6.10); RED CELL DISTRIBUTION WIDTH 14.5 % (11.5-14.5); WHITE BLOOD COUNT 8.9 10^3/uL (4.0-10.0)
[2017-07-19 19:31] LABS: ADD MANUAL DIFFER YES; DIFF SLIDE NUMBER 222; POS COUNT POS FLAG; POSITIVE MORPH POS FLAG
[2017-07-19 21:33] LABS: ATYPICAL LYMPH 4 % (0-5); LYMPHOCYTES 6 % (16-52); MONOCYTES 2 % (0-8); NEUTROPHILS 88 % (35-75)
[2017-07-19 21:34] LABS: PLATELET ESTIMATE NORMAL (NORMAL)
== END ==
LOC: M WUC 12:17
DX: E03.9 Hypothyroidism, unspecified (principal); I50.22 Chronic systolic (congestive) heart failure; I48.0 Paroxysmal atrial fibrillation
CPT/HCPCS: 84443

== ENCOUNTER 2017-07-26 17:43 | Inpatient (IN) | payer MEDICARE ==
[2017-07-26] MEDS: IPRATROPIUM 0.5MG/ALBUTEROL 2.5MG INH SOL UD 3ML (DUONEB)(J7620) NEB (18:20)
[2017-07-26 18:30] LABS: HEMOGLOBIN 11.3 g/dl (14.0-18.0); MEAN CORPUSCULAR HEMOGLOBIN 26.5 pg (27.0-33.0); MEAN CORPUSCULAR HGB CONC 31.4 g/dl (32.0-36.5); MEAN CORPUSCULAR VOLUME 84.5 fl (80.0-96.0); PLATELET COUNT, AUTOMATED 140 10^3/uL (150-450); RED BLOOD COUNT 4.26 10^6/uL (4.30-6.10); RED CELL DISTRIBUTION WIDTH 15.5 % (11.5-14.5)
[2017-07-26 18:31] LABS: VENOUS BASE EXCESS 11.8 (-2.0-2.0); VENOUS HCO3 38.1 MEQ/L (23.0-27.0); VENOUS O2 SATURATION 49.7 % (60.0-80.0); VENOUS PARTIAL PRESSURE CO2 58.1 mmHg (38.0-50.0); VENOUS PARTIAL PRESSURE O2 26.2 mmHg (30.0-50.0); VENOUS PH 7.435 UNITS (7.330-7.430); VENOUS STANDARD HCO3 34.4 MEQ/L; VENOUS TOTAL CO2 39.9 MEQ/L (24.0-28.0)
[2017-07-26 18:36] LABS: ADD MANUAL DIFFER YES; DIFF SLIDE NUMBER 276; POS COUNT POS FLAG; POSITIVE MORPH POS FLAG
[2017-07-26] MEDS: methylPREDNISolone INJ 125 MG/2 ML VIAL (J2930) IV (18:46)
[2017-07-26] MEDS: ACETAMINOPHEN TAB 650MG DOSE (2X325MG) PO (18:46)
[2017-07-26 19:02] LABS: INFLUENZA A AMPLIFICATION NEGATIVE (NEGATIVE); INFLUENZA B AMPLIFICATION NEGATIVE (NEGATIVE)
[2017-07-26 19:03] LABS: LACTIC ACID SEPSIS PROTOCOL 1.5 MMOL/L (0.4-2.0)
[2017-07-26 19:03] LABS: ANION GAP 7 MEQ/L (8-16); BLOOD UREA NITROGEN 21 MG/DL (7-18); CALCIUM LEVEL 7.8 MG/DL (8.8-10.2); CARBON DIOXIDE LEVEL 38 MEQ/L (21-32); CHLORIDE LEVEL 95 MEQ/L (98-107); CPK CREATINE PHOSPHOKINASE 76 U/L (39-308); CREATININE FOR GFR 1.19 MG/DL (0.70-1.30); GLOMERULAR FILTRATION RATE > 60.0 (>42); GLUCOSE, FASTING 76 MG/DL (70-100); SODIUM LEVEL 140 MEQ/L (136-145); TROPONIN I 0.04 NG/ML (< 0.10)
[2017-07-26 19:04] LABS: CK-MB VALUE MASS 1.4 NG/ML (0.0-3.6); MB/CK RELATIVE INDEX 1.84 (< OR =4)
[2017-07-26 19:06] LABS: ALBUMIN 2.8 GM/DL (3.2-5.2); ALBUMIN/GLOBULIN RATIO 0.85 (1.00-1.93); ALKALINE PHOSPHATASE 90 U/L (45-117); ALT/SGPT 32 U/L (12-78); AST/SGOT 22 U/L (7-37); BILIRUBIN,DIRECT 0.3 MG/DL (0.0-0.2); BILIRUBIN,TOTAL 0.8 MG/DL (0.2-1.0); NT-PRO BNP 1522 PG/ML (<450); TOTAL PROTEIN 6.1 GM/DL (6.4-8.2)
[2017-07-26 19:13] LABS: ANISOCYTOSIS 1+; ATYPICAL LYMPH 5 % (0-5); LYMPHOCYTES 10 % (16-52); MONOCYTES 2 % (0-8); NEUTROPHILS 83 % (35-75); PLATELET ESTIMATE DECREASED (NORMAL)
[2017-07-26 19:14] LABS: TEAR DROP CELLS 1+; TOXIC GRANULATION 1+
[2017-07-26 19:15] LABS: POLYCHROMASIA 1+; SCHISTOCYTES 1+
[2017-07-26] MEDS ORDERED: cefTRIAXone SOD 1 GM VIAL (J0696) IV (19:15)
[2017-07-26 19:17] LABS: POTASSIUM SERUM 2.5 MEQ/L (3.5-5.1)
[2017-07-26] MEDS: POTASSIUM CHLORIDE 10% LIQ 20 MEQ/15 ML UDC PO (19:43)
[2017-07-26] MEDS: CEFTRIAXONE SOD 1 GM in APPROPRIATE DILUENT 1 EA IV (19:45)
[2017-07-26 20:17] LABS: APPEARANCE, URINE CLOUDY (CLEAR); BACTERIA, URINE AUTO 3+ (NEGATIVE); BILIRUBIN, URINE AUTO NEGATIVE (NEGATIVE); BLOOD, URINE BLOOD 1+ (NEGATIVE); COLOR, URINE YELLOW (YELLOW); GLUCOSE, URINE (UA) AUTO NEGATIVE (NEGATIVE); KETONE, URINE AUTO NEGATIVE (NEGATIVE); LEUKOCYTE ESTERASE, URINE AUTO 3+ (NEGATIVE); MUCUS, URINE SMALL (NEGATIVE); NITRITE, URINE AUTO POSITIVE (NEGATIVE); PROTEIN, URINE AUTO NEGATIVE (NEGATIVE); RBC, URINE AUTO 6 /HPF (0-3); SPECIFIC GRAVITY URINE AUTO 1.011 (1.002-1.035); SQUAMOUS EPITHELIAL CELL UR AU 0 /HPF (0-6); UROBILINOGEN, URINE AUTO 0.2 mg/dL (0.0-2.0); WBC, URINE AUTO TNTC /HPF (0-3)
[2017-07-26] MEDS ORDERED: DOCUSATE SODIUM 100 MG CAP PO (21:30)
[2017-07-26] MEDS ORDERED: IPRATROPIUM 0.5MG/ALBUTEROL 2.5MG INH SOL UD 3ML (DUONEB)(J7620) NEB (21:30)
[2017-07-26] MEDS ORDERED: LACTULOSE 20 GM/30 ML SYRUP UD PO (21:30)
[2017-07-26] MEDS ORDERED: ALBUTEROL 90 MCG/ACT 8GM HFA INHALER INH (21:30)
[2017-07-26] MEDS: traZODone 50 MG TAB PO (23:15)
[2017-07-26] MEDS: APIXABAN 5 MG TAB (ELIQUIS) PO (23:15)
[2017-07-26] MEDS: POTASSIUM CHLORIDE 10 MEQ SR TABLET PO (23:16)
[2017-07-26] MEDS: hydrOXYzine 25 MG TAB PO (23:16)
[2017-07-26] MEDS: METOPROLOL SUCC *XL* 25MG TAB (TopROL *XL*) PO (23:17)
[2017-07-27 00:14] LABS: ANION GAP 6 MEQ/L (8-16); BLOOD UREA NITROGEN 23 MG/DL (7-18); CALCIUM LEVEL 7.8 MG/DL (8.8-10.2); CARBON DIOXIDE LEVEL 36 MEQ/L (21-32); CHLORIDE LEVEL 97 MEQ/L (98-107); CREATININE FOR GFR 1.25 MG/DL (0.70-1.30); GLOMERULAR FILTRATION RATE 59.5 (>42); GLUCOSE, FASTING 147 MG/DL (70-100); POTASSIUM SERUM 2.7 MEQ/L (3.5-5.1); SODIUM LEVEL 139 MEQ/L (136-145)
[2017-07-27] MEDS: PIPERACILLIN/TAZOBACTAM SOD 3.375 GM in APPROPRIATE DILUENT 1 EA IV ×5 (00:16→22:04)
[2017-07-27] MEDS: IPRATROPIUM 0.5MG/ALBUTEROL 2.5MG INH SOL UD 3ML (DUONEB)(J7620) NEB ×4 (01:36→20:00)
[2017-07-27] MEDS: FUROSEMIDE 40 MG/4 ML VIAL (J1940) IV ×2 (02:22→15:50)
[2017-07-27] MEDS: POTASSIUM CHLORIDE 10 MEQ SR TABLET PO ×3 (02:29→21:31)
[2017-07-27 05:03] LABS: HEMATOCRIT 35.8 % (42.0-52.0); HEMOGLOBIN 11.2 g/dl (14.0-18.0); MEAN CORPUSCULAR HEMOGLOBIN 25.9 pg (27.0-33.0); MEAN CORPUSCULAR HGB CONC 31.3 g/dl (32.0-36.5); MEAN CORPUSCULAR VOLUME 82.7 fl (80.0-96.0); PLATELET COUNT, AUTOMATED 145 10^3/uL (150-450); RED BLOOD COUNT 4.33 10^6/uL (4.30-6.10); RED CELL DISTRIBUTION WIDTH 15.4 % (11.5-14.5); WHITE BLOOD COUNT 11.5 10^3/uL (4.0-10.0)
[2017-07-27 05:17] LABS: ANION GAP 6 MEQ/L (8-16); BLOOD UREA NITROGEN 23 MG/DL (7-18); CALCIUM LEVEL 8.2 MG/DL (8.8-10.2); CARBON DIOXIDE LEVEL 36 MEQ/L (21-32); CHLORIDE LEVEL 98 MEQ/L (98-107); CREATININE FOR GFR 1.23 MG/DL (0.70-1.30); GLOMERULAR FILTRATION RATE > 60.0 (>42); GLUCOSE, FASTING 175 MG/DL (70-100); POTASSIUM SERUM 2.7 MEQ/L (3.5-5.1); SODIUM LEVEL 140 MEQ/L (136-145)
[2017-07-27] MEDS: KCL 10MEQ IN 100ML SWI (KRUN) 10 MEQ in APPROPRIATE DILUENT 1 EA IV ×2 (06:08→08:40)
[2017-07-27 07:42] LABS: MAGNESIUM LEVEL 2.3 MG/DL (1.8-2.4)
[2017-07-27 08:14] LABS: POTASSIUM SERUM 3.2 MEQ/L (3.5-5.1)
[2017-07-27] MEDS: ADVAIR HFA 115/21MCG INHALER INH ×2 (08:30→20:24)
[2017-07-27] MEDS: TIOTROPIUM INHALER/CAPSULE (SPIRIVA) INH (08:30)
[2017-07-27] MEDS: guaiFENesin ER 600 MG TAB PO ×3 (08:41→21:31)
[2017-07-27] MEDS: APIXABAN 5 MG TAB (ELIQUIS) PO ×2 (08:41→21:30)
[2017-07-27] MEDS: OMEPRAZOLE 20 MG CAP PO (08:41)
[2017-07-27] MEDS: hydrOXYzine 25 MG TAB PO ×3 (08:42→21:30)
[2017-07-27] MEDS: predniSONE 10 MG TAB PO (08:42)
[2017-07-27] MEDS: THIAMINE 100 MG TAB PO (08:42)
[2017-07-27] MEDS: amLODIPine 10 MG TAB PO (08:42)
[2017-07-27] MEDS: TAMSULOSIN 0.4 MG CAP PO (08:42)
[2017-07-27] MEDS ORDERED: POTASSIUM CHLORIDE 10 MEQ SR TABLET PO (09:00)
[2017-07-27] MEDS ORDERED: MULTIVITAMINS/MINERALS THERAP 1 TAB PO (09:00)
[2017-07-27] MEDS ORDERED: ASPIRIN 81 MG ENTERIC TAB PO (09:00)
[2017-07-27] MEDS: LEVOTHYROXINE 50MCG TABLET (0.05MG) PO (12:06)
[2017-07-27] MEDS: DUTASTERIDE 0.5 MG CAP (AVODART) PO (12:06)
[2017-07-27] MEDS: PREVNAR 13 VACCINE SYRINGE (CPT CODE:90670) IM (17:08)
[2017-07-27] MEDS: PREPARATION H OINTMENT (HEMORRHOID) PR (18:18)
[2017-07-27] MEDS: POLYVINYL ALCOHOL OPHTH SOLN 15 ML(LIQUITEARS) OU ×2 (18:18→21:34)
[2017-07-27] MEDS: ALBUTEROL SULFATE 2.5 MG/0.5 ML INH NEB SOLN NEB (20:58)
[2017-07-27] MEDS: SIMVASTATIN 20 MG TAB PO (21:30)
[2017-07-27] MEDS: traZODone 50 MG TAB PO (21:30)
[2017-07-27] MEDS: METOPROLOL SUCC *XL* 25MG TAB (TopROL *XL*) PO (21:32)
[2017-07-28] MEDS: IPRATROPIUM 0.5MG/ALBUTEROL 2.5MG INH SOL UD 3ML (DUONEB)(J7620) NEB ×4 (01:22→20:53)
[2017-07-28] MEDS: FUROSEMIDE 40 MG/4 ML VIAL (J1940) IV ×2 (03:00→15:37)
[2017-07-28 04:16] LABS: HEMATOCRIT 30.5 % (42.0-52.0); HEMOGLOBIN 9.5 g/dl (14.0-18.0); MEAN CORPUSCULAR HEMOGLOBIN 26.2 pg (27.0-33.0); MEAN CORPUSCULAR HGB CONC 31.1 g/dl (32.0-36.5); MEAN CORPUSCULAR VOLUME 84.3 fl (80.0-96.0); PLATELET COUNT, AUTOMATED 106 10^3/uL (150-450); RED BLOOD COUNT 3.62 10^6/uL (4.30-6.10); RED CELL DISTRIBUTION WIDTH 15.3 % (11.5-14.5); WHITE BLOOD COUNT 10.4 10^3/uL (4.0-10.0)
[2017-07-28 04:26] LABS: ANION GAP 5 MEQ/L (8-16); BLOOD UREA NITROGEN 29 MG/DL (7-18); CALCIUM LEVEL 8.1 MG/DL (8.8-10.2); CARBON DIOXIDE LEVEL 38 MEQ/L (21-32); CHLORIDE LEVEL 98 MEQ/L (98-107); CREATININE FOR GFR 1.33 MG/DL (0.70-1.30); GLOMERULAR FILTRATION RATE 55.4 (>42); GLUCOSE, FASTING 220 MG/DL (70-100); POTASSIUM SERUM 2.9 MEQ/L (3.5-5.1); SODIUM LEVEL 141 MEQ/L (136-145)
[2017-07-28] MEDS: PIPERACILLIN/TAZOBACTAM SOD 3.375 GM in APPROPRIATE DILUENT 1 EA IV ×4 (05:00→22:52)
[2017-07-28] MEDS: POTASSIUM CHLORIDE 10 MEQ SR TABLET PO ×5 (05:31→21:31)
[2017-07-28] MEDS: ADVAIR HFA 115/21MCG INHALER INH ×2 (07:53→20:53)
[2017-07-28] MEDS: TIOTROPIUM INHALER/CAPSULE (SPIRIVA) INH (07:53)
[2017-07-28] MEDS: hydrOXYzine 25 MG TAB PO ×3 (08:40→21:32)
[2017-07-28] MEDS: THIAMINE 100 MG TAB PO (08:40)
[2017-07-28] MEDS: POLYVINYL ALCOHOL OPHTH SOLN 15 ML(LIQUITEARS) OU ×4 (08:40→21:38)
[2017-07-28] MEDS: TAMSULOSIN 0.4 MG CAP PO (08:40)
[2017-07-28] MEDS: APIXABAN 5 MG TAB (ELIQUIS) PO ×2 (08:41→21:31)
[2017-07-28] MEDS: OMEPRAZOLE 20 MG CAP PO (08:41)
[2017-07-28] MEDS: amLODIPine 10 MG TAB PO (08:41)
[2017-07-28] MEDS: DUTASTERIDE 0.5 MG CAP (AVODART) PO (08:41)
[2017-07-28] MEDS: guaiFENesin ER 600 MG TAB PO ×3 (08:41→21:31)
[2017-07-28] MEDS: predniSONE 10 MG TAB PO (08:41)
[2017-07-28] MEDS: LEVOTHYROXINE 50MCG TABLET (0.05MG) PO (11:21)
[2017-07-28 12:36] LABS: POTASSIUM SERUM 4.2 MEQ/L (3.5-5.1)
[2017-07-28] MEDS: SIMVASTATIN 20 MG TAB PO (21:30)
[2017-07-28] MEDS: METOPROLOL SUCC *XL* 25MG TAB (TopROL *XL*) PO (21:33)
[2017-07-28] MEDS: traZODone 50 MG TAB PO (21:33)
[2017-07-29] MEDS: IPRATROPIUM 0.5MG/ALBUTEROL 2.5MG INH SOL UD 3ML (DUONEB)(J7620) NEB ×4 (01:08→20:17)
[2017-07-29] MEDS: FUROSEMIDE 40 MG/4 ML VIAL (J1940) IV ×2 (01:46→13:19)
[2017-07-29] MEDS: PIPERACILLIN/TAZOBACTAM SOD 3.375 GM in APPROPRIATE DILUENT 1 EA IV ×4 (05:04→22:40)
[2017-07-29 05:14] LABS: HEMATOCRIT 31.3 % (42.0-52.0); HEMOGLOBIN 9.7 g/dl (14.0-18.0); MEAN CORPUSCULAR HEMOGLOBIN 26.1 pg (27.0-33.0); MEAN CORPUSCULAR VOLUME 84.4 fl (80.0-96.0); PLATELET COUNT, AUTOMATED 127 10^3/uL (150-450); RED BLOOD COUNT 3.71 10^6/uL (4.30-6.10); RED CELL DISTRIBUTION WIDTH 15.5 % (11.5-14.5); WHITE BLOOD COUNT 5.8 10^3/uL (4.0-10.0)
[2017-07-29 05:27] LABS: ANION GAP 3 MEQ/L (8-16); BLOOD UREA NITROGEN 18 MG/DL (7-18); CALCIUM LEVEL 8.4 MG/DL (8.8-10.2); CARBON DIOXIDE LEVEL 40 MEQ/L (21-32); CHLORIDE LEVEL 96 MEQ/L (98-107); CREATININE FOR GFR 1.09 MG/DL (0.70-1.30); GLOMERULAR FILTRATION RATE > 60.0 (>42); GLUCOSE, FASTING 116 MG/DL (70-100); POTASSIUM SERUM 3.9 MEQ/L (3.5-5.1); SODIUM LEVEL 139 MEQ/L (136-145)
[2017-07-29] MEDS: TIOTROPIUM INHALER/CAPSULE (SPIRIVA) INH (08:38)
[2017-07-29] MEDS: ADVAIR HFA 115/21MCG INHALER INH ×2 (08:39→20:38)
[2017-07-29] MEDS: DUTASTERIDE 0.5 MG CAP (AVODART) PO (09:06)
[2017-07-29] MEDS: TAMSULOSIN 0.4 MG CAP PO (09:06)
[2017-07-29] MEDS: hydrOXYzine 50 MG TAB PO (09:06)
[2017-07-29] MEDS: APIXABAN 5 MG TAB (ELIQUIS) PO ×2 (09:06→20:43)
[2017-07-29] MEDS: predniSONE 10 MG TAB PO (09:06)
[2017-07-29] MEDS: OMEPRAZOLE 20 MG CAP PO (09:07)
[2017-07-29] MEDS: amLODIPine 10 MG TAB PO (09:07)
[2017-07-29] MEDS: ACETAMINOPHEN TAB 650MG DOSE (2X325MG) PO ×2 (09:07→19:54)
[2017-07-29] MEDS: POTASSIUM CHLORIDE 10 MEQ SR TABLET PO ×4 (09:07→20:43)
[2017-07-29] MEDS: THIAMINE 100 MG TAB PO (09:07)
[2017-07-29] MEDS: guaiFENesin ER 600 MG TAB PO ×3 (09:07→20:43)
[2017-07-29] MEDS: POLYVINYL ALCOHOL OPHTH SOLN 15 ML(LIQUITEARS) OU ×4 (09:08→20:43)
[2017-07-29] MEDS: hydrOXYzine 25 MG TAB PO ×2 (11:40→20:43)
[2017-07-29] MEDS: LEVOTHYROXINE 50MCG TABLET (0.05MG) PO (11:40)
[2017-07-29] MEDS: SIMVASTATIN 20 MG TAB PO (20:42)
[2017-07-29] MEDS: METOPROLOL SUCC *XL* 25MG TAB (TopROL *XL*) PO (20:43)
[2017-07-29] MEDS: traZODone 50 MG TAB PO (20:43)
[2017-07-30] MEDS: IPRATROPIUM 0.5MG/ALBUTEROL 2.5MG INH SOL UD 3ML (DUONEB)(J7620) NEB ×4 (01:26→19:59)
[2017-07-30] MEDS: FUROSEMIDE 40 MG/4 ML VIAL (J1940) IV ×2 (01:29→14:11)
[2017-07-30] MEDS: PIPERACILLIN/TAZOBACTAM SOD 3.375 GM in APPROPRIATE DILUENT 1 EA IV ×4 (05:18→22:39)
[2017-07-30 05:26] LABS: HEMATOCRIT 31.4 % (42.0-52.0); HEMOGLOBIN 9.7 g/dl (14.0-18.0); MEAN CORPUSCULAR HEMOGLOBIN 26.5 pg (27.0-33.0); MEAN CORPUSCULAR HGB CONC 30.9 g/dl (32.0-36.5); MEAN CORPUSCULAR VOLUME 85.8 fl (80.0-96.0); PLATELET COUNT, AUTOMATED 126 10^3/uL (150-450); RED BLOOD COUNT 3.66 10^6/uL (4.30-6.10); RED CELL DISTRIBUTION WIDTH 15.4 % (11.5-14.5); WHITE BLOOD COUNT 6.4 10^3/uL (4.0-10.0)
[2017-07-30 05:40] LABS: ANION GAP 2 MEQ/L (8-16); BLOOD UREA NITROGEN 17 MG/DL (7-18); CALCIUM LEVEL 9.1 MG/DL (8.8-10.2); CARBON DIOXIDE LEVEL 41 MEQ/L (21-32); CHLORIDE LEVEL 97 MEQ/L (98-107); CREATININE FOR GFR 1.02 MG/DL (0.70-1.30); GLOMERULAR FILTRATION RATE > 60.0 (>42); GLUCOSE, FASTING 112 MG/DL (70-100); MAGNESIUM LEVEL 2.3 MG/DL (1.8-2.4); POTASSIUM SERUM 4.4 MEQ/L (3.5-5.1); SODIUM LEVEL 140 MEQ/L (136-145)
[2017-07-30] MEDS: TIOTROPIUM INHALER/CAPSULE (SPIRIVA) INH (07:37)
[2017-07-30] MEDS: ADVAIR HFA 115/21MCG INHALER INH ×2 (07:38→20:00)
[2017-07-30] MEDS: predniSONE 10 MG TAB PO (08:29)
[2017-07-30] MEDS: amLODIPine 10 MG TAB PO (08:29)
[2017-07-30] MEDS: APIXABAN 5 MG TAB (ELIQUIS) PO ×2 (08:30→20:15)
[2017-07-30] MEDS: guaiFENesin ER 600 MG TAB PO ×3 (08:30→20:14)
[2017-07-30] MEDS: DUTASTERIDE 0.5 MG CAP (AVODART) PO (08:30)
[2017-07-30] MEDS: OMEPRAZOLE 20 MG CAP PO (08:30)
[2017-07-30] MEDS: THIAMINE 100 MG TAB PO (08:30)
[2017-07-30] MEDS: POTASSIUM CHLORIDE 10 MEQ SR TABLET PO ×4 (08:30→20:15)
[2017-07-30] MEDS: TAMSULOSIN 0.4 MG CAP PO (08:30)
[2017-07-30] MEDS: POLYVINYL ALCOHOL OPHTH SOLN 15 ML(LIQUITEARS) OU ×4 (08:31→20:15)
[2017-07-30] MEDS: hydrOXYzine 50 MG TAB PO (08:31)
[2017-07-30] MEDS ORDERED: VITAMIN D 1,000 INTERNATIONAL UNITS TABLET PO (09:00)
[2017-07-30] MEDS: hydrOXYzine 25 MG TAB PO ×2 (11:23→20:13)
[2017-07-30] MEDS: LEVOTHYROXINE 50MCG TABLET (0.05MG) PO (11:23)
[2017-07-30] MEDS: ALBUTEROL SULFATE 2.5 MG/0.5 ML INH NEB SOLN NEB ×2 (11:46→21:07)
[2017-07-30] MEDS: SIMVASTATIN 20 MG TAB PO (20:14)
[2017-07-30] MEDS: METOPROLOL SUCC *XL* 25MG TAB (TopROL *XL*) PO (20:14)
[2017-07-30] MEDS: traZODone 50 MG TAB PO (20:15)
[2017-07-31] MEDS: IPRATROPIUM 0.5MG/ALBUTEROL 2.5MG INH SOL UD 3ML (DUONEB)(J7620) NEB ×4 (00:25→20:00)
[2017-07-31] MEDS: FUROSEMIDE 40 MG/4 ML VIAL (J1940) IV (02:19)
[2017-07-31] MEDS: ALBUTEROL SULFATE 2.5 MG/0.5 ML INH NEB SOLN NEB (03:47)
[2017-07-31] MEDS: PIPERACILLIN/TAZOBACTAM SOD 3.375 GM in APPROPRIATE DILUENT 1 EA IV ×2 (05:00→11:34)
[2017-07-31 05:25] LABS: HEMATOCRIT 32.3 % (42.0-52.0); MEAN CORPUSCULAR VOLUME 83.9 fl (80.0-96.0); PLATELET COUNT, AUTOMATED 151 10^3/uL (150-450); RED BLOOD COUNT 3.85 10^6/uL (4.30-6.10); RED CELL DISTRIBUTION WIDTH 15.5 % (11.5-14.5); WHITE BLOOD COUNT 5.9 10^3/uL (4.0-10.0)
[2017-07-31 05:54] LABS: ANION GAP 4 MEQ/L (8-16); BLOOD UREA NITROGEN 20 MG/DL (7-18); CALCIUM LEVEL 9.4 MG/DL (8.8-10.2); CARBON DIOXIDE LEVEL 38 MEQ/L (21-32); CHLORIDE LEVEL 94 MEQ/L (98-107); CREATININE FOR GFR 1.36 MG/DL (0.70-1.30); GLUCOSE, FASTING 90 MG/DL (70-100); POTASSIUM SERUM 5.1 MEQ/L (3.5-5.1); SODIUM LEVEL 136 MEQ/L (136-145)
[2017-07-31] MEDS: TIOTROPIUM INHALER/CAPSULE (SPIRIVA) INH (07:57)
[2017-07-31] MEDS: ADVAIR HFA 115/21MCG INHALER INH ×2 (07:58→21:18)
[2017-07-31] MEDS: APIXABAN 5 MG TAB (ELIQUIS) PO ×2 (08:54→20:26)
[2017-07-31] MEDS: DUTASTERIDE 0.5 MG CAP (AVODART) PO (08:54)
[2017-07-31] MEDS: OMEPRAZOLE 20 MG CAP PO (08:54)
[2017-07-31] MEDS: TAMSULOSIN 0.4 MG CAP PO (08:54)
[2017-07-31] MEDS: POLYVINYL ALCOHOL OPHTH SOLN 15 ML(LIQUITEARS) OU ×4 (08:54→20:26)
[2017-07-31] MEDS: predniSONE 10 MG TAB PO (08:54)
[2017-07-31] MEDS: amLODIPine 10 MG TAB PO (08:54)
[2017-07-31] MEDS: THIAMINE 100 MG TAB PO (08:54)
[2017-07-31] MEDS: guaiFENesin ER 600 MG TAB PO ×3 (08:54→20:26)
[2017-07-31] MEDS: hydrOXYzine 50 MG TAB PO (09:43)
[2017-07-31] MEDS: LEVOTHYROXINE 50MCG TABLET (0.05MG) PO (11:34)
[2017-07-31] MEDS: hydrOXYzine 25 MG TAB PO ×2 (11:34→20:26)
[2017-07-31 16:21] LABS: TROPONIN I < 0.02 NG/ML (< 0.10)
[2017-07-31] MEDS: traZODone 50 MG TAB PO (20:25)
[2017-07-31] MEDS: CEFDINIR 300 MG CAP (OMNICEF) PO (20:25)
[2017-07-31] MEDS: SIMVASTATIN 20 MG TAB PO (20:25)
[2017-07-31] MEDS: METOPROLOL SUCC *XL* 25MG TAB (TopROL *XL*) PO (20:26)
[2017-08-01] MEDS: IPRATROPIUM 0.5MG/ALBUTEROL 2.5MG INH SOL UD 3ML (DUONEB)(J7620) NEB ×4 (01:24→20:00)
[2017-08-01] MEDS: ALBUTEROL SULFATE 2.5 MG/0.5 ML INH NEB SOLN NEB (03:44)
[2017-08-01 05:46] LABS: HEMOGLOBIN 9.4 g/dl (14.0-18.0); MEAN CORPUSCULAR HEMOGLOBIN 26.2 pg (27.0-33.0); MEAN CORPUSCULAR HGB CONC 31.3 g/dl (32.0-36.5); MEAN CORPUSCULAR VOLUME 83.6 fl (80.0-96.0); PLATELET COUNT, AUTOMATED 145 10^3/uL (150-450); RED BLOOD COUNT 3.59 10^6/uL (4.30-6.10); RED CELL DISTRIBUTION WIDTH 15.3 % (11.5-14.5); WHITE BLOOD COUNT 5.7 10^3/uL (4.0-10.0)
[2017-08-01 06:19] LABS: ANION GAP 5 MEQ/L (8-16); BLOOD UREA NITROGEN 20 MG/DL (7-18); CARBON DIOXIDE LEVEL 36 MEQ/L (21-32); CHLORIDE LEVEL 95 MEQ/L (98-107); CREATININE FOR GFR 1.21 MG/DL (0.70-1.30); GLOMERULAR FILTRATION RATE > 60.0 (>42); GLUCOSE, FASTING 97 MG/DL (70-100); POTASSIUM SERUM 4.8 MEQ/L (3.5-5.1); SODIUM LEVEL 136 MEQ/L (136-145)
[2017-08-01] MEDS: ADVAIR HFA 115/21MCG INHALER INH ×2 (08:03→21:05)
[2017-08-01] MEDS: TIOTROPIUM INHALER/CAPSULE (SPIRIVA) INH (08:03)
[2017-08-01] MEDS: amLODIPine 10 MG TAB PO (08:19)
[2017-08-01] MEDS: FUROSEMIDE 40 MG TAB PO (08:20)
[2017-08-01] MEDS: OMEPRAZOLE 20 MG CAP PO (08:20)
[2017-08-01] MEDS: guaiFENesin ER 600 MG TAB PO ×3 (08:20→21:39)
[2017-08-01] MEDS: APIXABAN 5 MG TAB (ELIQUIS) PO ×2 (08:20→21:39)
[2017-08-01] MEDS: TAMSULOSIN 0.4 MG CAP PO (08:20)
[2017-08-01] MEDS: predniSONE 10 MG TAB PO (08:20)
[2017-08-01] MEDS: CEFDINIR 300 MG CAP (OMNICEF) PO ×2 (08:20→21:39)
[2017-08-01] MEDS: THIAMINE 100 MG TAB PO (08:20)
[2017-08-01] MEDS: hydrOXYzine 50 MG TAB PO (08:20)
[2017-08-01] MEDS: DUTASTERIDE 0.5 MG CAP (AVODART) PO (08:20)
[2017-08-01] MEDS: POLYVINYL ALCOHOL OPHTH SOLN 15 ML(LIQUITEARS) OU ×4 (08:21→21:40)
[2017-08-01] MEDS: hydrOXYzine 25 MG TAB PO ×2 (11:41→21:39)
[2017-08-01] MEDS: LEVOTHYROXINE 50MCG TABLET (0.05MG) PO (11:41)
[2017-08-01] MEDS: ACETAMINOPHEN TAB 650MG DOSE (2X325MG) PO (12:58)
[2017-08-01] MEDS: METOPROLOL SUCC *XL* 25MG TAB (TopROL *XL*) PO (21:39)
[2017-08-01] MEDS: traZODone 50 MG TAB PO (21:39)
[2017-08-01] MEDS: SIMVASTATIN 20 MG TAB PO (21:39)
[2017-08-02] MEDS: IPRATROPIUM 0.5MG/ALBUTEROL 2.5MG INH SOL UD 3ML (DUONEB)(J7620) NEB ×4 (00:59→20:00)
[2017-08-02] MEDS: ALBUTEROL SULFATE 2.5 MG/0.5 ML INH NEB SOLN NEB (04:44)
[2017-08-02 06:03] LABS: HEMATOCRIT 29.2 % (42.0-52.0); HEMOGLOBIN 9.1 g/dl (14.0-18.0); MEAN CORPUSCULAR HGB CONC 31.2 g/dl (32.0-36.5); MEAN CORPUSCULAR VOLUME 83.4 fl (80.0-96.0); PLATELET COUNT, AUTOMATED 132 10^3/uL (150-450); RED CELL DISTRIBUTION WIDTH 15.1 % (11.5-14.5); WHITE BLOOD COUNT 4.4 10^3/uL (4.0-10.0)
[2017-08-02 06:19] LABS: ANION GAP 5 MEQ/L (8-16); BLOOD UREA NITROGEN 25 MG/DL (7-18); CALCIUM LEVEL 8.8 MG/DL (8.8-10.2); CARBON DIOXIDE LEVEL 35 MEQ/L (21-32); CHLORIDE LEVEL 97 MEQ/L (98-107); CREATININE FOR GFR 1.29 MG/DL (0.70-1.30); GLOMERULAR FILTRATION RATE 57.3 (>42); GLUCOSE, FASTING 94 MG/DL (70-100); POTASSIUM SERUM 4.1 MEQ/L (3.5-5.1); SODIUM LEVEL 137 MEQ/L (136-145)
[2017-08-02] MEDS: TIOTROPIUM INHALER/CAPSULE (SPIRIVA) INH (07:19)
[2017-08-02] MEDS: ADVAIR HFA 115/21MCG INHALER INH ×2 (07:19→20:04)
[2017-08-02] MEDS: TAMSULOSIN 0.4 MG CAP PO (08:56)
[2017-08-02] MEDS: APIXABAN 5 MG TAB (ELIQUIS) PO ×2 (08:56→20:54)
[2017-08-02] MEDS: THIAMINE 100 MG TAB PO (08:56)
[2017-08-02] MEDS: hydrOXYzine 50 MG TAB PO (08:56)
[2017-08-02] MEDS: CEFDINIR 300 MG CAP (OMNICEF) PO ×2 (08:56→20:54)
[2017-08-02] MEDS: OMEPRAZOLE 20 MG CAP PO (08:56)
[2017-08-02] MEDS: amLODIPine 10 MG TAB PO (08:56)
[2017-08-02] MEDS: guaiFENesin ER 600 MG TAB PO ×3 (08:56→20:54)
[2017-08-02] MEDS: FUROSEMIDE 40 MG TAB PO (08:56)
[2017-08-02] MEDS: DUTASTERIDE 0.5 MG CAP (AVODART) PO (08:56)
[2017-08-02] MEDS: predniSONE 10 MG TAB PO (08:56)
[2017-08-02] MEDS: POLYVINYL ALCOHOL OPHTH SOLN 15 ML(LIQUITEARS) OU ×4 (08:57→20:56)
[2017-08-02] MEDS: hydrOXYzine 25 MG TAB PO ×2 (12:22→20:54)
[2017-08-02] MEDS: LEVOTHYROXINE 50MCG TABLET (0.05MG) PO (12:22)
[2017-08-02] MEDS: traZODone 50 MG TAB PO (20:54)
[2017-08-02] MEDS: METOPROLOL SUCC *XL* 25MG TAB (TopROL *XL*) PO (20:55)
[2017-08-02] MEDS: SIMVASTATIN 20 MG TAB PO (20:55)
[2017-08-03] MEDS: IPRATROPIUM 0.5MG/ALBUTEROL 2.5MG INH SOL UD 3ML (DUONEB)(J7620) NEB ×4 (01:25→20:00)
[2017-08-03 04:13] LABS: HEMATOCRIT 29.8 % (42.0-52.0); HEMOGLOBIN 9.1 g/dl (14.0-18.0); MEAN CORPUSCULAR HEMOGLOBIN 25.7 pg (27.0-33.0); MEAN CORPUSCULAR HGB CONC 30.5 g/dl (32.0-36.5); MEAN CORPUSCULAR VOLUME 84.2 fl (80.0-96.0); PLATELET COUNT, AUTOMATED 152 10^3/uL (150-450); RED BLOOD COUNT 3.54 10^6/uL (4.30-6.10)
[2017-08-03 04:30] LABS: ANION GAP 3 MEQ/L (8-16); BLOOD UREA NITROGEN 23 MG/DL (7-18); CALCIUM LEVEL 8.9 MG/DL (8.8-10.2); CARBON DIOXIDE LEVEL 37 MEQ/L (21-32); CHLORIDE LEVEL 98 MEQ/L (98-107); CREATININE FOR GFR 1.21 MG/DL (0.70-1.30); GLOMERULAR FILTRATION RATE > 60.0 (>42); GLUCOSE, FASTING 100 MG/DL (70-100); SODIUM LEVEL 138 MEQ/L (136-145)
[2017-08-03] MEDS: ADVAIR HFA 115/21MCG INHALER INH ×2 (07:14→20:27)
[2017-08-03] MEDS: TIOTROPIUM INHALER/CAPSULE (SPIRIVA) INH (07:14)
[2017-08-03] MEDS: FUROSEMIDE 40 MG TAB PO (08:37)
[2017-08-03] MEDS: TAMSULOSIN 0.4 MG CAP PO (08:37)
[2017-08-03] MEDS: amLODIPine 10 MG TAB PO (08:37)
[2017-08-03] MEDS: DUTASTERIDE 0.5 MG CAP (AVODART) PO (08:37)
[2017-08-03] MEDS: predniSONE 10 MG TAB PO (08:38)
[2017-08-03] MEDS: CEFDINIR 300 MG CAP (OMNICEF) PO ×2 (08:38→21:47)
[2017-08-03] MEDS: THIAMINE 100 MG TAB PO (08:38)
[2017-08-03] MEDS: guaiFENesin ER 600 MG TAB PO ×3 (08:38→21:47)
[2017-08-03] MEDS: APIXABAN 5 MG TAB (ELIQUIS) PO ×2 (08:38→21:47)
[2017-08-03] MEDS: OMEPRAZOLE 20 MG CAP PO (08:38)
[2017-08-03] MEDS: hydrOXYzine 50 MG TAB PO (08:38)
[2017-08-03] MEDS: POLYVINYL ALCOHOL OPHTH SOLN 15 ML(LIQUITEARS) OU ×4 (08:38→21:48)
[2017-08-03] MEDS: hydrOXYzine 25 MG TAB PO ×2 (12:16→21:50)
[2017-08-03] MEDS: LEVOTHYROXINE 50MCG TABLET (0.05MG) PO (12:16)
[2017-08-03] MEDS: traZODone 50 MG TAB PO (21:47)
[2017-08-03] MEDS: SIMVASTATIN 20 MG TAB PO (21:47)
[2017-08-03] MEDS: METOPROLOL SUCC *XL* 25MG TAB (TopROL *XL*) PO (21:48)
[2017-08-03] MEDS: ACETAMINOPHEN TAB 650MG DOSE (2X325MG) PO (21:49)
[2017-08-04] MEDS: IPRATROPIUM 0.5MG/ALBUTEROL 2.5MG INH SOL UD 3ML (DUONEB)(J7620) NEB ×3 (01:10→14:07)
[2017-08-04] MEDS: ALBUTEROL SULFATE 2.5 MG/0.5 ML INH NEB SOLN NEB (05:48)
[2017-08-04 06:34] LABS: HEMATOCRIT 28.8 % (42.0-52.0); HEMOGLOBIN 8.8 g/dl (14.0-18.0); MEAN CORPUSCULAR HEMOGLOBIN 25.6 pg (27.0-33.0); MEAN CORPUSCULAR HGB CONC 30.6 g/dl (32.0-36.5); MEAN CORPUSCULAR VOLUME 83.7 fl (80.0-96.0); PLATELET COUNT, AUTOMATED 137 10^3/uL (150-450); RED BLOOD COUNT 3.44 10^6/uL (4.30-6.10); RED CELL DISTRIBUTION WIDTH 14.8 % (11.5-14.5); WHITE BLOOD COUNT 3.5 10^3/uL (4.0-10.0)
[2017-08-04 06:59] LABS: ANION GAP 4 MEQ/L (8-16); BLOOD UREA NITROGEN 18 MG/DL (7-18); CALCIUM LEVEL 8.6 MG/DL (8.8-10.2); CARBON DIOXIDE LEVEL 35 MEQ/L (21-32); CHLORIDE LEVEL 98 MEQ/L (98-107); CREATININE FOR GFR 1.12 MG/DL (0.70-1.30); GLOMERULAR FILTRATION RATE > 60.0 (>42); GLUCOSE, FASTING 102 MG/DL (70-100); SODIUM LEVEL 137 MEQ/L (136-145)
[2017-08-04] MEDS: TIOTROPIUM INHALER/CAPSULE (SPIRIVA) INH (07:38)
[2017-08-04] MEDS: ADVAIR HFA 115/21MCG INHALER INH (07:38)
[2017-08-04] MEDS: guaiFENesin ER 600 MG TAB PO (08:42)
[2017-08-04] MEDS: hydrOXYzine 50 MG TAB PO (08:42)
[2017-08-04] MEDS: THIAMINE 100 MG TAB PO (08:43)
[2017-08-04] MEDS: OMEPRAZOLE 20 MG CAP PO (08:43)
[2017-08-04] MEDS: predniSONE 10 MG TAB PO (08:43)
[2017-08-04] MEDS: CEFDINIR 300 MG CAP (OMNICEF) PO (08:43)
[2017-08-04] MEDS: DUTASTERIDE 0.5 MG CAP (AVODART) PO (08:43)
[2017-08-04] MEDS: amLODIPine 10 MG TAB PO (08:43)
[2017-08-04] MEDS: FUROSEMIDE 40 MG TAB PO (08:43)
[2017-08-04] MEDS: TAMSULOSIN 0.4 MG CAP PO (08:43)
[2017-08-04] MEDS: APIXABAN 5 MG TAB (ELIQUIS) PO (08:43)
[2017-08-04] MEDS: POLYVINYL ALCOHOL OPHTH SOLN 15 ML(LIQUITEARS) OU ×2 (08:44→13:16)
[2017-08-04] MEDS: LEVOTHYROXINE 50MCG TABLET (0.05MG) PO (13:16)
[2017-08-04] MEDS: hydrOXYzine 25 MG TAB PO (13:16)
== END 2017-08-04 16:36 | disposition home or self-care (01) | DRG 291 ==
LOC: M MS5PR 08-03 16:00 → M ED 17:43 → M ED INP 20:40 → M PCU 22:06
DX: I11.0 Hypertensive heart disease with heart failure (principal); J69.0 Pneumonitis due to inhalation of food and vomit; J96.11 Chronic respiratory failure with hypoxia; J91.8 Pleural effusion in other conditions classified elsewhere; N39.0 Urinary tract infection, site not specified; J44.9 Chronic obstructive pulmonary disease, unspecified; I50.33 Acute on chronic diastolic (congestive) heart failure; N40.1 Benign prostatic hyperplasia with lower urinary tract symptoms; R33.9 Retention of urine, unspecified; L40.9 Psoriasis, unspecified; Z66 Do not resuscitate; E78.5 Hyperlipidemia, unspecified; K21.9 Gastro-esophageal reflux disease without esophagitis; E87.6 Hypokalemia; G47.00 Insomnia, unspecified; B96.1 Klebsiella pneumoniae [K. pneumoniae] as the cause of diseases classified elsewhere; I48.91 Unspecified atrial fibrillation; R91.1 Solitary pulmonary nodule; E03.9 Hypothyroidism, unspecified; Z79.01 Long term (current) use of anticoagulants; Z79.82 Long term (current) use of aspirin; Z87.891 Personal history of nicotine dependence; Z88.2 Allergy status to sulfonamides; Z88.6 Allergy status to analgesic agent; Z88.0 Allergy status to penicillin; Z88.1 Allergy status to other antibiotic agents; Z91.040 Latex allergy status; Z99.81 Dependence on supplemental oxygen